=== PATIENT | female | born 1980 | race Caucasian/White ===

== ENCOUNTER 2017-09-20 13:13 | Emergency (ER) | payer MEDICAID ==
[~2017-09-20 13:13] MED LIST: ACHD5005 PO; AZIT-21 PO; CYCL5TAB PO; DOXY100C2 PO; DULO30CA PO; DULO60CA6 PO; ESTR0.755; ESTR0.755 PO; Estrogen; HYDR-34 PO; HYDR-3583 PO; HYDR1TAB PO; IBP200T; LEVO500T69 PO; METH4TAB PO; NCT21TD TD; OXYC10TA8 PO; OXYC40TA49 PO; PERCOCET; TRAM50TA2; TRM50T
[2017-09-21] MEDS ORDERED: ONDA8TAB9 PO (15:12)
[2017-09-21] MEDS ORDERED: CLON0.1T PO (15:12)
[2017-09-21] MEDS ORDERED: POTA10TA PO (15:14)
== END 2017-09-20 14:05 | disposition left against medical advice (07) ==
LOC: EDUNIT# 13:13 → ER 13:15
DX: R11.2 Nausea with vomiting, unspecified (principal); R19.7 Diarrhea, unspecified; R50.9 Fever, unspecified

== ENCOUNTER 2017-09-21 12:48 | Emergency (ER) | payer MEDICAID ==
[~2017-09-21] VITALS: Ht 170.2 cm; Wt 44.5 kg
[2017-09-21] MEDS ORDERED: NS IV 1000 ML 1,000 ML IV ONE (13:13)
[2017-09-21] MEDS ORDERED: ONDANSETRON 4 MG/2 ML (SDV) Z0FRAN IVP ONE (13:15)
--- NOTE | 2017-09-21 13:24 | ED Abdominal Pain ---
General Chief Complaint: -Female Stated Complaint: THROWING UP,DIARRHEA, NOT URINATED IN 2 DAYS History of Present Illness Date Seen by Provider: Sep 21, 2017 Time Seen by Provider: 13:15 Initial Comments 37 year old female reports history of nerve pain in her chest from previous spontaneous pneumothoraces and chest tubes. She has been treated with oxycodone and OxyContin dating back to 2003. She stopped OxyContin in July 2017 and stopped taking the oxycodone 3 days ago. Per [employer] she was getting 180 Oxycodone 10mg every month, no Oxycontin since early Jul 2017. She reports that over the last few months she has been gradually increasing the amount of oxycodone that she is taking, beyond her prescribed dose. She is followed by Dr. Barrientos in [place], [place]. She has not seen her primary care physician for cessation of the medication. She has an appointment 09/27/17 for this. She reports withdrawal symptoms, abdominal pain, and nausea and vomiting. She denies seizure activity or tremors. She has been drinking 7-Up to stay hydrated but denies any urinary output for 2 days. She presented to the emergency department yesterday but left prior to evaluation because of the wait time. Timing/Duration: 3-4 Days Location: Generalized Abdomen Radiation: No Radiation Associated Symptoms: Nausea/Vomiting Allergies and Home Medications Allergies Coded Allergies: ibuprofen (Verified Allergy, Mild, RASH FROM LIQUIGELS CAN TAKE PLAIN ADVIL, 12/28/08) pregabalin (Unverified Allergy, Unknown, 09/21/17) tramadol (Unverified Allergy, Unknown, 09/21/17) Home Medications Clonidine HCl 0.1 Mg Tablet, 0.1 MG PO Q8H PRN for ANXIETY, #8 Ref 0 Prescribed by: MARYSE LAWSON on 09/21/17 1512 Estropipate 0.75 Mg Tablet, #30 (Reported) Methylprednisolone 4 Mg/Dose-Pack Tab.ds.pk, 0 PO UD, #1 Prescribed by: JC SINCLAIR on 04/03/14 1628 Ondansetron 8 Mg Tab.rapdis, 4 MG PO Q8H, #16 Ref 0 Prescribed by: MARYSE LAWSON on 09/21/17 1512 Oxycodone Hcl 40 Mg Tab.sr.12h, 40 MG PO BID, (Reported) Oxycodone Hcl 10 Mg Tab, 10 MG PO QID PRN, (Reported) breakthrough pain Potassium Chloride 10 Meq Tablet.er, 10 MEQ PO DAILY, #5 Ref 0 Prescribed by: MARYSE LAWSON on 09/21/17 1514 Review of Systems Constitutional: no symptoms reported, see HPI Gastrointestinal: See HPI, Abdominal Pain, Nausea, Poor Appetite, Vomiting Psychiatric/Neurological: See HPI, Anxiety All Other Systems Reviewed Negative Unless Noted: Yes Past U[place]uvub-Bblbcv-[place]as[place] Hx Patient Social History Recent Foreign Travel: No Contact w/Someone Who Travel: No Immunizations Up To Date Date of Pneumonia Vaccine: May 05, 2011 Date of Influenza Vaccine: Oct 06, 2011 Respiratory Respiratory Disorders: Emphysema Reproductive System Hx Reproductive Disorders: Yes Sexually 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 Disease: 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 Psychosocial Behavioral Health Disorders: Sleep Difficulties Reviewed Nursing Assessment Reviewed/Agree w Nursing PMH: Yes Physical Exam Vital Signs VS - Last 72 Hours, by Label 09/21/17 09/21/17 13:35 15:50 Temp 98.3 98.3 Pulse 92 92 Resp 20 20 B/P (MAP) 114/93 (100) 114/93 (100) Pulse Ox 100 100 O2 Delivery Room Air Capillary Refill : General Appearance: WD/WN, no apparent distress HEENT: PERRL/EOMI, normal ENT inspection, TMs normal, pharynx normal Neck: non-tender, full range of motion, supple, normal inspection Respiratory: chest non-tender, lungs clear, normal breath sounds Cardiovascular: normal peripheral pulses, regular rate, rhythm Gastrointestinal: normal bowel sounds, soft, No distended, No guarding, No rebound, tenderness (generalized) Neurologic/Psychiatric: no motor/sensory deficits, alert, normal mood/affect, oriented x 3 Skin: normal color, warm/dry Progress/Results/Core Measures Results/Orders Lab Results Laboratory Tests Test 09/21/17 13:15 09/21/17 14:20 Range/Units White Blood Count 11.0 4.3-11.0 10^3/uL Red Blood Count 5.42 4.35-5.85 10^6/uL Hemoglobin 16.4 H 11.5-16.0 G/DL Hematocrit 47 35-52 % Mean Corpuscular Volume 87 80-99 FL Mean Corpuscular Hemoglobin 30 25-34 PG Mean Corpuscular Hemoglobin Concent 35 32-36 G/DL Red Cell Distribution Width 13.3 10.0-14.5 % Platelet Count 298 130-400 10^3/uL Mean Platelet Volume 10.7 H 7.4-10.4 FL Neutrophils (%) (Auto) 74 42-75 % Lymphocytes (%) (Auto) 18 12-44 % Monocytes (%) (Auto) 8 0-12 % Eosinophils (%) (Auto) 1 0-10 % Basophils (%) (Auto) 0 0-10 % Neutrophils # (Auto) 8.1 H 1.8-7.8 X 10^3 Lymphocytes # (Auto) 2.0 1.0-4.0 X 10^3 Monocytes # (Auto) 0.8 0.0-1.0 X 10^3 Eosinophils # (Auto) 0.1 0.0-0.3 10^3/uL Basophils # (Auto) 0.0 0.0-0.1 10^3/uL Sodium Level 141 135-145 MMOL/L Potassium Level 2.9 L 3.6-5.0 MMOL/L Chloride Level 99 98-107 MMOL/L Carbon Dioxide Level 24 21-32 MMOL/L Anion Gap 18 H 5-14 MMOL/L Blood Urea Nitrogen 13 7-18 MG/DL Creatinine 0.83 0.60-1.30 MG/DL Estimat Glomerular Filtration Rate > 60 BUN/Creatinine Ratio 16 Glucose Level 112 H 70-105 MG/DL Calcium Level 10.5 H 8.5-10.1 MG/DL Total Bilirubin 0.4 0.1-1.0 MG/DL Aspartate Amino Transf (AST/SGOT) 19 5-34 U/L Alanine Aminotransferase (ALT/SGPT) 12 0-55 U/L Alkaline Phosphatase 91 40-136 U/L Total Protein 8.8 H 6.4-8.2 GM/DL Albumin 5.0 H 3.2-4.5 GM/DL Amylase Level 98 25-125 U/L Lipase 62 8-78 U/L Salicylates Level < 5.0 L 5.0-20.0 MG/DL Serum Alcohol 12 H <10 MG/DL Urine Color YELLOW Urine Clarity SLIGHTLY CLOUDY Urine pH 6 5-9 Urine Specific [place] 1.015 L 1.016-1.022 Urine Protein 3+ H NEGATIVE Urine Glucose (UA) NEGATIVE NEGATIVE Urine Ketones NEGATIVE NEGATIVE Urine Nitrite NEGATIVE NEGATIVE Urine Bilirubin NEGATIVE NEGATIVE Urine Urobilinogen NORMAL NORMAL MG/DL Urine Leukocyte Esterase 1+ H NEGATIVE Urine RBC (Auto) 1+ H NEGATIVE Urine RBC 5-10 H /HPF Urine WBC 2-5 /HPF Urine Squamous Epithelial Cells 5-10 /HPF Urine Crystals PRESENT H /LPF Urine Uric Acid Crystals FEW H /LPF Urine Bacteria FEW H /HPF Urine Casts NONE /LPF Urine Mucus MODERATE H /LPF Urine Culture Indicated YES Urine Opiates Screen NEGATIVE NEGATIVE Urine Oxycodone Screen NEGATIVE NEGATIVE Urine Methadone Screen NEGATIVE NEGATIVE Urine Propoxyphene Screen NEGATIVE NEGATIVE Urine Barbiturates Screen NEGATIVE NEGATIVE Ur Tricyclic Antidepressants Screen NEGATIVE NEGATIVE Urine Phencyclidine Screen NEGATIVE NEGATIVE Urine Amphetamines Screen NEGATIVE NEGATIVE Urine Methamphetamines Screen NEGATIVE NEGATIVE Urine Benzodiazepines Screen NEGATIVE NEGATIVE Urine Cocaine Screen NEGATIVE NEGATIVE Urine Cannabinoids Screen NEGATIVE NEGATIVE My Orders Orders - RENNY,MARYSE FORENSIC IDENTIFICATION SPECIALIST Alcohol (09/21/17 13:13) Amylase (09/21/17 13:13) Cbc With Automated Diff (09/21/17 13:13) Comprehensive Metabolic Panel (09/21/17 13:13) Drug Screen Stat (Urine) (09/21/17 13:13) Lipase (09/21/17 13:13) Salicylate (09/21/17 13:13) Ua Culture If Indicated (09/21/17 13:13) Saline Lock/Iv-Start (09/21/17 13:13) Ns Iv 1000 Ml (Sodium Chloride 0.9%) (09/21/17 13:13) Ondansetron Injection (Zofran Injectio (09/21/17 13:15) Clonidine Tablet (Catapres Tablet) (09/21/17 13:30) D5 1/2 Ns W/Kcl 40 Meq/L (Dextrose 5%/0. (09/21/17 14:30) Urine Culture (09/21/17 14:20) Medications Given in ED Current Medications Medications Dose Ordered Sig/Ronal Route Start Time Stop Time Status Last Admin Dose Admin Clonidine HCl 0.1 mg ONCE ONCE PO 09/21/17 13:30 09/21/17 13:31 DC 09/21/17 13:32 0.1 MG Ondansetron HCl 4 mg ONCE ONCE IVP 09/21/17 13:15 09/21/17 13:16 DC 09/21/17 13:25 4 MG Sodium Chloride 1,000 ml @ 0 mls/hr Q0M ONCE IV 09/21/17 13:13 09/21/17 13:15 DC 09/21/17 13:24 0 MLS/HR Vital Signs/I&O Vital Sign - Last 12Hours 09/21/17 09/21/17 13:35 15:50 Temp 98.3 98.3 Pulse 92 92 Resp 20 20 B/P (MAP) 114/93 (100) 114/93 (100) Pulse Ox 100 100 O2 Delivery Room Air Progress Note : Time: 13:15 Progress Note Initial evaluation completed, recommended Zofran 4 mg IV for nausea, normal saline 1 L IV, labs and will reevaluate. 1400 patient reports improvement in her nausea since getting the Zofran, no vomiting. 1430 urine obtained. All other labs essentially normal with the exception of potassium 2.9. Will give D5 1.2 NS with 40 mEq of potassium IV 1 liter[address] Anna, she will have the patient advocate contact the patient on Saturday for referral for addiction services. 1545 discharge planning discussed with the patient, return precautions and home treatments reviewed in detail. All questions answered. Departure Impression Impression: Primary Impression: Opioid withdrawal Additional Impression: Nausea & vomiting Qualified Codes: R11.2 - Nausea with vomiting, unspecified Disposition: HOME, SELF-CARE Condition: Improved Departure-Patient Inst. Decision time for Depature: 15:15 Referrals: MONALISA BARRIENTOS MD (PCP/Family) Primary Care Physician Patient Instructions: Drug Withdrawal (DC), Polysubstance Abuse (DC) Add. Discharge Instructions: Increase fluid intake, may use Gatorade or Pedialyte, 1 cup every 2 hours while awake. Clear liquid diet, if nauseated. [place] diet as tolerated and progress to regular diet if nausea and vomiting improve. Take clonidine only as prescribed, no more frequently. Use Zofran as needed for nausea and vomiting as prescribed. Take Potassium for 5 days, as directed. Have labs rechecked at [facility]. Increase high Potassium foods in diet. Follow up with [facility] on Saturday for addiction treatment services. Return to emergency department for tremors, anxiety, suicidal thoughts, fever greater than 101, chest pain, seizure activity, or new problems. All discharge instructions reviewed with patient and/or family. Voiced understanding. Scripts Potassium Chloride (K-Tab ER) 10 Meq Tablet.er 10 MEQ PO DAILY, #5 TAB 0 Refills Prov: MARYSE LAWSON 09/21/17 Clonidine HCl (Clonidine HCl) 0.1 Mg Tablet 0.1 MG PO Q8H Y for ANXIETY, #8 TAB 0 Refills Prov: MARYSE LAWSON 09/21/17 Ondansetron (Zofran Odt) 8 Mg Tab.rapdis 4 MG PO Q8H, #16 TAB 0 Refills Prov: MARYSE LAWSON 09/21/17 Copy Copies To 1: JESS ANNA MD Copies To 2: GENOVEVA MOHR MD, AMY ARNP Sep 21, 2017 13:24
[2017-09-21 13:26] LABS: BASOPHILS % (AUTO) 0 % (0-10); EOSINOPHILS # (AUTO) 0.1 10^3/uL (0.0-0.3); EOSINOPHILS % (AUTO) 1 % (0-10); HEMATOCRIT 47 % (35-52); HEMOGLOBIN 16.4 G/DL (11.5-16.0); LYMPHOCYTES % (AUTO) 18 % (12-44); MEAN CORPUSCULAR HEMOGLOBIN 30 PG (25-34); MEAN CORPUSCULAR HGB CONC 35 G/DL (32-36); MEAN CORPUSCULAR VOLUME 87 FL (80-99); MEAN PLATELET VOLUME 10.7 FL (7.4-10.4); MONOCYTES # (AUTO) 0.8 X 10^3 (0.0-1.0); MONOCYTES % (AUTO) 8 % (0-12); NEUTROPHILS # (AUTO) 8.1 X 10^3 (1.8-7.8); NEUTROPHILS % (AUTO) 74 % (42-75); PLATELET COUNT 298 10^3/uL (130-400); RED BLOOD COUNT 5.42 10^6/uL (4.35-5.85); RED CELL DISTRIBUTION WIDTH 13.3 % (10.0-14.5)
[2017-09-21] MEDS ORDERED: cloNIDine 0.1 MG (CATAPRES) TAB PO ONE (13:30)
[2017-09-21 13:47] LABS: ALANINE AMINOTRANSFERASE 12 U/L (0-55); ALKALINE PHOSPHATASE 91 U/L (40-136); AMYLASE 98 U/L (25-125); BILIRUBIN,TOTAL 0.4 MG/DL (0.1-1.0); BUN/CREATININE RATIO 16; CALCIUM 10.5 MG/DL (8.5-10.1); CARBON DIOXIDE 24 MMOL/L (21-32); CHLORIDE 99 MMOL/L (98-107); CREATININE SERUM 0.83 MG/DL (0.60-1.30); GFR ESTIMATED > 60; GLUCOSE 112 MG/DL (70-105); LIPASE 62 U/L (8-78); POTASSIUM 2.9 MMOL/L (3.6-5.0); SALICYLATE < 5.0 MG/DL (5.0-20.0); SODIUM 141 MMOL/L (135-145); TOTAL PROTEIN 8.8 GM/DL (6.4-8.2)
[2017-09-21 14:29] LABS: BILIRUBIN,URINE NEGATIVE (NEGATIVE); CLARITY,URINE SLIGHTLY CLOUDY; COLOR,URINE YELLOW; GLUCOSE, URINE (UA) NEGATIVE (NEGATIVE); KETONES,URINE NEGATIVE (NEGATIVE); LEUKOCYTE ESTERASE ,URINE 1+ (NEGATIVE); NITRITE,URINE NEGATIVE (NEGATIVE); PH,URINE 6 (5-9); PROTEIN,URINE 3+ (NEGATIVE); UROBILINOGEN,URINE NORMAL (NORMAL)
[2017-09-21] MEDS ORDERED: D5 1/2 NS W/KCL 40 MEQ/L 1,000 ML IV SCH (14:30)
[2017-09-21 14:39] LABS: BACTERIA,URINE FEW /HPF; URIC ACID CRYSTALS,URINE FEW /LPF
[2017-09-21 14:41] LABS: AMPHETAMINE SCREEN, URINE NEGATIVE (NEGATIVE); BARBITURATE SCREEN URINE NEGATIVE (NEGATIVE); BENZODIAZEPINES SCREEN URINE NEGATIVE (NEGATIVE); CANNABINOID SCREEN, URINE NEGATIVE (NEGATIVE); COCAINE SCREEN URINE NEGATIVE (NEGATIVE); METHADONE STAT NEGATIVE (NEGATIVE); METHAMPHETAMINE SCREEN URINE S NEGATIVE (NEGATIVE); OPIATE SCREEN URINE NEGATIVE (NEGATIVE); OXYCODONE STAT NEGATIVE (NEGATIVE); PROPOXYPHENE STAT NEGATIVE (NEGATIVE); TRICYCLIC ANTIDEPRESSANTS SCRE NEGATIVE (NEGATIVE)
[2017-09-21] MEDS ORDERED: ONDA8TAB9 PO (15:12)
[2017-09-21] MEDS ORDERED: CLON0.1T PO (15:12)
[2017-09-21] MEDS ORDERED: POTA10TA PO (15:14)
[2017-09-21 15:50] VITALS: BP 114/93
== END 2017-09-21 15:57 | disposition home or self-care (01) ==
LOC: EDUNIT# 12:48 → ER 12:49
DX: R11.2 Nausea with vomiting, unspecified (principal); F11.20 Opioid dependence, uncomplicated; G47.9 Sleep disorder, unspecified; Z88.6 Allergy status to analgesic agent; Z88.1 Allergy status to other antibiotic agents
CPT/HCPCS: 36415; 80053; 80306; 80320; 80329; 81000; 82150; 83690; 85025; 87088

== ENCOUNTER 2018-08-23 10:44 | Emergency (ER) | payer MEDICAID | END 2018-08-23 12:27 | disposition home or self-care (01) | LOC: ER 10:44 ==

== ENCOUNTER 2018-09-30 18:41 | Emergency (ER) | payer MEDICAID ==
[~2018-09-30] VITALS: Ht 172.7 cm; Wt 50.8 kg
[~2018-09-30 18:41] MED LIST changes: +CLON0.1T PO; +ONDA8TAB9 PO; +POTA10TA PO
[2018-09-30] MEDS ORDERED: RT-ALBUTEROL SULF 2.5 MG/3 ML PRE-MIX VIAL ONE (18:52)
--- NOTE | 2018-09-30 19:01 | ED Cough/URI ---
General Stated Complaint: CONGESTED,FEVER,ACHY Source: patient Exam Limitations: no limitations History of Present Illness Date Seen by Provider: Sep 30, 2018 Allergies and Home Medications Allergies Coded Allergies: ibuprofen (Verified Allergy, Mild, RASH FROM LIQUIGELS CAN TAKE PLAIN ADVIL, 12/28/08) pregabalin (Unverified Allergy, Unknown, 09/21/17) tramadol (Unverified Allergy, Unknown, 09/21/17) Home Medications Clonidine HCl 0.1 Mg Tablet, 0.1 MG PO Q8H PRN for ANXIETY Prescribed by: MARYSE LAWSON on 09/21/17 151 Methylprednisolone 4 Mg/Dose-Pack Tab.ds.pk, 0 PO UD Prescribed by: JC SINCLAIR on 04/03/14 1628 Ondansetron 8 Mg Tab.rapdis, 4 MG PO Q8H Prescribed by: MARYSE LAWSON on 09/21/17 151 Oxycodone Hcl 40 Mg Tab.sr.12h, 40 MG PO BID, (Reported) Oxycodone Hcl 10 Mg Tab, 10 MG PO QID PRN, (Reported) breakthrough pain Potassium Chloride 10 Meq Tablet.er, 10 MEQ PO DAILY Prescribed by: MARYSE LAWSON on 09/21/17 151 Promethazine/Dextromethorphan 473 Ml Syrup, 5 ML PO Q4H Prescribed by: RACHEL SOSA on 09/30/181924 Past Egvbpmm-Joenob-Njjdpt Hx Patient Social History Type Used: Cigarettes 2nd Hand Smoke Exposure: Yes Recent Foreign Travel: No Contact w/Someone Who Travel: No Recent Hopitalizations: Yes (Pneumo x 3) Immunizations Up To Date Date of Pneumonia Vaccine: May 05, 2011 Date of Influenza Vaccine: Oct 06, 2011 Past Medical History Surgeries: Yes (Appy 1996, Hyster 12/26/08 LUNG) Respiratory: Yes ( 10 PNUEMOTHORAX'S, "lungs collapse") Emphysema Cardiac: No Neurological: No 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 0oz. 49.147599ir; BMI Method:Stated Progress/Results/Core Measures Suspected Sepsis SIRS Temperature: Pulse: Respiratory Rate: Blood Pressure / Mean: Results/Orders Micro Results Microbiology 09/30/18 Influenza Types A,B Antigen (PAPA) - Final, Complete My Orders Orders - RACHEL SOSA Influenza A And B Antigens (09/30/18 18:43) Albuterol Pre-Mix Nebs (Rt) (Proventil (09/30/18 18:52) Promethazine/ Codeine Syrup (Phenergan W (09/30/18 19:30) Vital Signs/I&O 09/30/18 19:24 Temp 98.9 Pulse 88 Resp 20 B/P (MAP) 114/74 (87) Pulse Ox 99 O2 Delivery Room Air Capillary Refill : Departure Impression Primary Impression: Influenza-like symptoms Disposition: HOME, SELF-CARE Condition: Stable/Unchanged Departure-Patient Inst. Decision time for Depature: 19:23 Referrals: [facility] (PCP/Family) Primary Care Physician Patient Instructions: Viral Upper Respiratory Infection, Adult (DC) Add. Discharge Instructions: Take medications as directed. Tylenol and ibuprofen as directed by the bottle for pain and fever reliefFollow-up with your primary care provider within 1 week for recheck. Return back to the emergency room for worsening symptoms or concerns as needed. Scripts Promethazine/Dextromethorphan (Promethazine-Dm Syrup) 473 Ml Syrup 5 ML PO Q4H, #60 ML Prov: RACHEL SOSA 09/30/18 Work/School Note: Work Release Form Date Seen in the Emergency Department: Sep 30, 2018 Return to Work: Sep 30, 2018 Restrictions: Return-No Fever (24hrs) RACHEL SOSA Sep 30, 2018 19:01
[2018-09-30] MEDS ORDERED: D-ME473S38 PO (19:25)
[2018-09-30] MEDS ORDERED: PROMETHAZINE/ CODEINE SYRUP 5 ML UDC PO ONE (19:30)
[2018-09-30 19:53] VITALS: BP 114/74
== END 2018-09-30 19:50 | disposition home or self-care (01) ==
LOC: EDUNIT# 18:41 → ER 18:43
DX: R09.81 Nasal congestion (principal); R50.9 Fever, unspecified; R52 Pain, unspecified; J43.9 Emphysema, unspecified; Z88.6 Allergy status to analgesic agent; Z88.8 Allergy status to other drugs, medicaments and biological substances; Z79.52 Long term (current) use of systemic steroids; Z77.22 Contact with and (suspected) exposure to environmental tobacco smoke (acute) (chronic); Z90.49 Acquired absence of other specified parts of digestive tract; Z90.710 Acquired absence of both cervix and uterus
CPT/HCPCS: 87804

== ENCOUNTER 2019-05-10 09:09 | Emergency (ER) | payer SELFPAY ==
[~2019-05-10] VITALS: Ht 170.1 cm; Wt 45.4 kg
[~2019-05-10 09:09] MED LIST changes: +D-ME473S38 PO
--- NOTE | 2019-05-10 09:27 | ED GU-Female ---
General Stated Complaint: BLOOD IN URINE Source: patient, spouse Exam Limitations: no limitations History of Present Illness Date Seen by Provider: May 10, 2019 Time Seen by Provider: 09:15 Initial Comments The patient presents to ER by private conveyance with chief complaint of thinking she has a UTI because for the past day or so she's had dysuria and this morning started having bloody urine. She has some occasional right flank pain. She used ibuprofen this morning which has worked well for her pain. No fever but she's had some chills. No history of kidney stones. She's not having any nausea or significant pain this time. She's had a appendectomy in the past. She takes Suboxone and hormone replacement therapy under Dr. Melissa Mcintyre's care. Allergies and Home Medications Allergies Coded Allergies: ibuprofen (Verified Allergy, Mild, RASH FROM LIQUIGELS CAN TAKE PLAIN ADVIL, 12/28/08) pregabalin (Unverified Allergy, Unknown, 09/21/17) tramadol (Unverified Allergy, Unknown, 09/21/17) Home Medications Clonidine HCl 0.1 Mg Tablet, 0.1 MG PO Q8H PRN for ANXIETY Prescribed by: MARYSE LAWSON on 09/21/17 1512 Methylprednisolone 4 Mg/Dose-Pack Tab.ds.pk, 0 PO UD Prescribed by: JC SINCLAIR on 04/03/14 1628 Ondansetron 8 Mg Tab.rapdis, 4 MG PO Q8H Prescribed by: MARYSE LAWSON on 09/21/17 1512 Oxycodone Hcl 40 Mg Tab.sr.12h, 40 MG PO BID, (Reported) Oxycodone Hcl 10 Mg Tab, 10 MG PO QID PRN, (Reported) breakthrough pain Potassium Chloride 10 Meq Tablet.er, 10 MEQ PO DAILY Prescribed by: MARYSE LAWSON on 09/21/17 1514 Promethazine/Dextromethorphan 473 Ml Syrup, 5 ML PO Q4H Prescribed by: RACHEL SOSA on 09/30/181924 Patient Home Medication List Home Medication List Reviewed: Yes Review of Systems Review of Systems Constitutional: chills; No fever EENTM: No ear discharge, No ear pain Respiratory: No cough, No short of breath Cardiovascular: No chest pain, No edema Gastrointestinal: No abdominal pain, No constipation Past Gepcovw-Ibryfw-Eczveg Hx Patient Social History Alcohol Use: Denies Use Recreational Drug Use: No Smoking Status: Current Everyday Smoker Type Used: Cigarettes 2nd Hand Smoke Exposure: Yes Recent Foreign Travel: No Contact w/Someone Who Travel: No Recent Hopitalizations: Yes (Pneumo x 3) Immunizations Up To Date Date of Pneumonia Vaccine: May 05, 2011 Date of Influenza Vaccine: Oct 06, 2011 Past Medical History Surgeries: Yes (Appy 1996, Hyster 12/26/08 LUNG) Respiratory: Yes ( 10 PNUEMOTHORAX'S, "lungs collapse") Emphysema Cardiac: No Neurological: No 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 0oz. 50.140496fq; BMI Method:Estimated General Appearance: WD/WN, no apparent distress HEENT: PERRL/EOMI, normal ENT inspection Neck: non-tender, full range of motion Cardiovascular: normal peripheral pulses, regular rate, rhythm Respiratory: no respiratory distress, no accessory muscle use Gastrointestinal: normal bowel sounds, non tender Back: normal inspection, no CVA tenderness Progress/Results/Core Measures Suspected Sepsis SIRS Temperature: Pulse: Respiratory Rate: Blood Pressure / Mean: Results/Orders Lab Results Laboratory Tests Test 05/10/19 09:24 Range/Units Urine Color YELLOW Urine Clarity SLIGHTLY CLOUDY Urine pH 6 5-9 Urine Specific [place] 1.005 L 1.016-1.022 Urine Protein 2+ H NEGATIVE Urine Glucose (UA) NEGATIVE NEGATIVE Urine Ketones NEGATIVE NEGATIVE Urine Nitrite NEGATIVE NEGATIVE Urine Bilirubin NEGATIVE NEGATIVE Urine Urobilinogen NORMAL NORMAL MG/DL Urine Leukocyte Esterase 3+ H NEGATIVE Urine RBC (Auto) 5+ H NEGATIVE Urine RBC 0 /HPF Urine WBC TNTC H /HPF Urine Crystals NONE /LPF Urine Bacteria LARGE H /HPF Urine Casts NONE /LPF Urine Mucus SMALL H /LPF Urine Culture Indicated YES Urine Test NEGATIVE NEGATIVE My Orders Orders - URIEL AVILA Ua Culture If Indicated (05/10/19 09:10) Hcg,Qualitative Urine (05/10/19 09:27) Urine Culture (05/10/19 09:24) Vital Signs/I&O 05/10/19 09:18 Temp 36.8 Pulse 81 Resp 16 B/P (MAP) 119/95 (103) Pulse Ox 65 O2 Delivery Room Air Capillary Refill : Progress Note : Time: 09:26 Progress Note Urinalysis and . Departure Impression Primary Impression: Urinary tract infection Qualified Codes: N30.00 - Acute cystitis without hematuria Disposition: HOME, SELF-CARE Condition: Stable Departure-Patient Inst. Decision time for Depature: 09:53 Referrals: [facility] (PCP/Family) Primary Care Physician Patient Instructions: Urinary Tract Infection, Adult (DC) Add. Discharge Instructions: Drink lots of fluids. Keflex one capsule twice a day for the next week. Tylenol 1000 mg every 8 hours as needed for pain. Ibuprofen 800 mg every 8 hours as needed for pain. Scripts Cephalexin (Keflex) 500 Mg Capsule 500 MG PO BID for 7 Days, #14 CAP 0 Refills Prov: URIEL AVILA 05/10/19 Work/School Note: Work Release Form Date Seen in the Emergency Department: May 10, 2019 Return to Work: May 11, 2019 Restrictions: No Restrictions URIEL AVILA May 10, 2019 09:27
[2019-05-10 09:30] LABS: BILIRUBIN,URINE NEGATIVE (NEGATIVE); CLARITY,URINE SLIGHTLY CLOUDY; COLOR,URINE YELLOW; GLUCOSE, URINE (UA) NEGATIVE (NEGATIVE); KETONES,URINE NEGATIVE (NEGATIVE); LEUKOCYTE ESTERASE ,URINE 3+ (NEGATIVE); NITRITE,URINE NEGATIVE (NEGATIVE); PH,URINE 6 (5-9); PROTEIN,URINE 2+ (NEGATIVE); UROBILINOGEN,URINE NORMAL (NORMAL)
[2019-05-10 09:46] LABS: BACTERIA,URINE LARGE /HPF; RBC,URINE 0 /HPF; WBC,URINE TNTC /HPF
[2019-05-10] MEDS ORDERED: CEPH-507 PO (09:55)
[2019-05-10 10:18] VITALS: BP 119/95
== END 2019-05-10 10:17 | disposition home or self-care (01) ==
LOC: EDUNIT# 09:09 → ER 09:10
DX: N39.0 Urinary tract infection, site not specified (principal); J43.9 Emphysema, unspecified; F17.210 Nicotine dependence, cigarettes, uncomplicated; Z88.6 Allergy status to analgesic agent; Z88.5 Allergy status to narcotic agent; Z88.8 Allergy status to other drugs, medicaments and biological substances; Z90.49 Acquired absence of other specified parts of digestive tract; Z90.710 Acquired absence of both cervix and uterus; Z79.52 Long term (current) use of systemic steroids
CPT/HCPCS: 81000; 84703; 87088; 99282

== ENCOUNTER 2020-01-30 21:03 | Emergency (ER) | payer SELFPAY ==
[~2020-01-30] VITALS: Ht 170 cm; Wt 44.0 kg
[~2020-01-30 21:03] MED LIST changes: +CEPH-507 PO; +D-ME473S11 PO; -D-ME473S38 PO
--- NOTE | 2020-01-30 21:24 | ED Respiratory ---
General Chief Complaint: - Urinary Stated Complaint: SOA,COUGH History of Present Illness Date Seen by Provider: Jan 30, 2020 Time Seen by Provider: 21:05 Initial Comments 39-year-old female presents for shortness of air and cough. She denies any fever. She's had possible indirect exposure to COVID-19 positive patients through her . History of Pneumothorax and lung surgery. Has been taking Muccinex. She works at [employer]. Timing/Duration: yesterday Severity: mild Prior Episodes/Possible Cause: occasional episodes Associated Symptoms: cough (green sputum), fever/chills, muscle aches; No nasal congestion, No nasal drainage; shortness of breath; No sore throat, No wheezing Allergies and Home Medications Allergies Coded Allergies: ibuprofen (Verified Allergy, Mild, RASH FROM LIQUIGELS CAN TAKE PLAIN ADVIL, 12/28/08) pregabalin (Unverified Allergy, Unknown, 09/21/17) tramadol (Unverified Allergy, Unknown, 09/21/17) Home Medications Azithromycin 250 Mg Tablet, 250 MG PO DAILY Prescribed by: MARYSE LAWSON on 01/30/20 2230 Cephalexin 500 Mg Capsule, 500 MG PO BID Prescribed by: URIEL AVILA on 05/10/19 0955 Clonidine HCl 0.1 Mg Tablet, 0.1 MG PO Q8H PRN for ANXIETY Prescribed by: MARYSE LAWSON on 09/21/17 1512 Methylprednisolone 4 Mg/Dose-Pack Tab.ds.pk, 0 PO UD Prescribed by: JC SINCLAIR on 04/03/14 1628 Ondansetron 8 Mg Tab.rapdis, 4 MG PO Q8H Prescribed by: MARYSE LAWSON on 09/21/17 1512 Oxycodone Hcl 40 Mg Tab.sr.12h, 40 MG PO BID, (Reported) Oxycodone Hcl 10 Mg Tab, 10 MG PO QID PRN, (Reported) breakthrough pain Potassium Chloride 10 Meq Tablet.er, 10 MEQ PO DAILY Prescribed by: MARYSE LAWSON on 09/21/17 1514 Promethazine/Dextromethorphan 473 Ml Syrup, 5 ML PO Q4H Prescribed by: RACHEL SOSA on 09/30/18 1925 Patient Home Medication List Home Medication List Reviewed: Yes Review of Systems Review of Systems Constitutional: see HPI, malaise, weakness Respiratory: see HPI, phlegm, short of breath Cardiovascular: no symptoms reported, see HPI; No chest pain Gastrointestinal: no symptoms reported, see HPI Genitourinary: no symptoms reported, see HPI : No (Hysterectomy) All Other Systems Reviewed Negative Unless Noted: Yes Past Otbnicv-Zbkknj-Kmwjis Hx Past Med/Social Hx: Reviewed Nursing Past Med/Soc Hx Patient Social History Alcohol Use: Denies Use Recreational Drug Use: No Type Used: Cigarettes 2nd Hand Smoke Exposure: Yes Recent Hopitalizations: Yes (Pneumo x 3) Physical Abuse: No Sexual Abuse: No Mistreated: No Fear: No Immunizations Up To Date Date of Pneumonia Vaccine: May 05, 2011 Date of Influenza Vaccine: Oct 06, 2011 Seasonal Allergies Seasonal Allergies: No Past Medical History Surgeries: Yes (Appy 1996, Hyster 12/26/08 LUNG) Respiratory: Yes ( 10 PNUEMOTHORAX'S, "lungs collapse") Emphysema Cardiac: No Neurological: No 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 0oz. 50.415367kc; 15.00 BMI Method:Estimated General Appearance: WD/WN, no apparent distress HEENT: PERRL/EOMI, normal ENT inspection, TMs normal, pharynx normal Neck: non-tender, full range of motion, supple, normal inspection Respiratory: chest non-tender, no respiratory distress, no accessory muscle use, decreased breath sounds, rhonchi (Bilateral lower lobes) Cardiovascular: normal peripheral pulses, regular rate, rhythm, no edema, no JVD, no murmur Gastrointestinal: normal bowel sounds, non tender, soft Extremities: normal range of motion, non-tender, normal inspection, no calf tenderness, normal capillary refill Neurologic/Psychiatric: no motor/sensory deficits, alert, normal mood/affect, oriented x 3 Skin: normal color, warm/dry; No rash Progress/Results/Core Measures Suspected Sepsis SIRS Temperature: Pulse: Respiratory Rate: Laboratory Tests 01/30/20 21:30: White Blood Count 6.1 Blood Pressure / Mean: Laboratory Tests 01/30/20 21:30: Creatinine 0.85, Platelet Count 177, Total Bilirubin 0.3 Results/Orders Lab Results Laboratory Tests Test 01/30/20 21:30 Range/Units White Blood Count 6.1 4.3-11.0 10^3/uL Red Blood Count 4.62 4.35-5.85 10^6/uL Hemoglobin 14.2 11.5-16.0 G/DL Hematocrit 42 35-52 % Mean Corpuscular Volume 90 80-99 FL Mean Corpuscular Hemoglobin 31 25-34 PG Mean Corpuscular Hemoglobin Concent 34 32-36 G/DL Red Cell Distribution Width 11.7 10.0-14.5 % Platelet Count 177 130-400 10^3/uL Mean Platelet Volume 10.8 H 7.4-10.4 FL Neutrophils (%) (Auto) 39 L 42-75 % Lymphocytes (%) (Auto) 49 H 12-44 % Monocytes (%) (Auto) 8 0-12 % Eosinophils (%) (Auto) 4 0-10 % Basophils (%) (Auto) 0 0-10 % Neutrophils # (Auto) 2.4 1.8-7.8 X 10^3 Lymphocytes # (Auto) 3.0 1.0-4.0 X 10^3 Monocytes # (Auto) 0.5 0.0-1.0 X 10^3 Eosinophils # (Auto) 0.2 0.0-0.3 10^3/uL Basophils # (Auto) 0.0 0.0-0.1 10^3/uL Erythrocyte Sedimentation Rate 7 0-20 MM/HR D-Dimer 0.39 0.00-0.49 UG/ML Sodium Level 140 135-145 MMOL/L Potassium Level 3.6 3.6-5.0 MMOL/L Chloride Level 105 98-107 MMOL/L Carbon Dioxide Level 24 21-32 MMOL/L Anion Gap 11 5-14 MMOL/L Blood Urea Nitrogen 6 L 7-18 MG/DL Creatinine 0.85 0.60-1.30 MG/DL Estimat Glomerular Filtration Rate > 60 BUN/Creatinine Ratio 7 Glucose Level 94 70-105 MG/DL Calcium Level 9.2 8.5-10.1 MG/DL Corrected Calcium 8.9 8.5-10.1 MG/DL Total Bilirubin 0.3 0.1-1.0 MG/DL Aspartate Amino Transf (AST/SGOT) 15 5-34 U/L Alanine Aminotransferase (ALT/SGPT) 9 0-55 U/L Alkaline Phosphatase 55 40-136 U/L Lactate Dehydrogenase 145 125-220 U/L C-Reactive Protein High Sensitivity 0.03 0.00-0.50 MG/DL Total Protein 7.2 6.4-8.2 GM/DL Albumin 4.4 3.2-4.5 GM/DL Procalcitonin 0.01 <0.10 NG/ML My Orders Orders - MARYSE LAWSON Cbc With Automated Diff (01/30/20 21:24) Comprehensive Metabolic Panel (01/30/20 21:24) Fibrin Degradation Products (01/30/20 21:24) Procalcitonin (Pct) (01/30/20 21:24) Hs C Reactive Protein (01/30/20 21:24) Erythrocyte Sedimentation Rate (01/30/20 21:24) LDH (01/30/20 21:24) Chest 1 View, Ap/Pa Only (01/30/20 21:24) Coronavirus Sars-Cov-2 So 2018 (01/30/20 21:24) Rx-Albuterol Inhaler (Rx-Proair) (01/30/20 22:25) Azithromycin Tablet (Zithromax Tablet) (01/30/20 22:30) Vital Signs/I&O 01/30/20 01/30/20 01/30/20 21:17 21:17 21:17 Temp 37.0 Pulse 74 Resp 16 B/P (MAP) 108/86 (93) Pulse Ox 96 96 O2 Delivery Room Air Room Air Room Air Capillary Refill : Diagnostic Imaging Diagonstic Imaging: Xray Plain Films/CT/US/NM/MRI: chest Comments NAME: SHILOH DOUGLAS Haydee [facility] REC#: [id number] PT STATUS: REG ER : 1980 PHYSICIAN: MARYSE LAWSON ADMIT DATE: 01/30/20/ER Signed Date of Exam:01/30/20 CHEST 1 VIEW, AP/PA ONLY INDICATION: Shortness of air. TECHNIQUE: Single view chest 9:54 PM. CORRELATION STUDY: . FINDINGS: The heart size, mediastinal configuration and pulmonary vascularity are within normal limits. Rather marked abnormal changes about the lung parenchyma, particularly at the lung apices, is again demonstrated. This includes areas of asymmetric fibrosis and pleural thickening. Apparent suture line bilateral lung apex. Density in the lateral right mid lung field, stable. Unchanged blunting of right costophrenic angle. May be slightly increased infiltrate-like density in the right mid lung field laterally. IMPRESSION: Marked chronic changes about the lung apices with biapical pleural fibrosis and pleural thickening along with the prior surgical change. Question of minimal new area of infiltrate in the right mid lung field. Follow-up imaging if clinically warranted. Dictated by: Dictated on workstation # [id number] Dict: 01/30/202203 Trans: 01/30/202209 PJE [id number] Interpreted by: MADELINE PISANO DO Electronically signed by: MADELINE PISANO DO 01/30/202209 Departure Impression Primary Impression: Bronchitis Additional Impression: COVID PUI Disposition: 01 HOME, SELF-CARE Condition: Improved Departure-Patient Inst. Decision time for Depature: 22:15 Referrals: [facility] (PCP/Family) Primary Care Physician Patient Instructions: Acute Bronchitis, Adult (DC), Coronavirus Disease 2019 (COVID-19) (DC) Add. Discharge Instructions: Increase water intake, 16 ounces every 2 hours while awake. Use inhaler 2-4 puffs every 4 hours as needed for shortness of breath or cough. Take Zithromax as prescribed. Take Mucinex one tablet twice daily. Follow-up at [facility] if symptoms are not improving or worsen. Rest and stay on isolation until your COVID tests are called to you. All close personal contacts. Also isolated home until the results are returned. You may alternate between Tylenol 600 mg and ibuprofen 600 mg every 4 hours for pain or fever. Return to the emergency department for fever greater than 101 not relieved by Tylenol or ibuprofen, difficulty breathing, or new urgent health concerns. All discharge instructions reviewed with patient and/or family. Voiced understanding. Scripts Azithromycin (Azithromycin) 250 Mg Tablet 250 MG PO DAILY, #4 TAB 0 Refills Prov: MARYSE LAWSON 01/30/20 Work/School Note: Work Release Form Date Seen in the Emergency Department: Jan 30, 2020 Other Restrictions Listed Below: Must quarantine at home, until COVID testing is complete and notified Copy Copies To 1: NATE THOMPSON AMY ARNP Jan 30, 2020 21:24
[2020-01-30 21:42] LABS: BASOPHILS % (AUTO) 0 % (0-10); EOSINOPHILS # (AUTO) 0.2 10^3/uL (0.0-0.3); EOSINOPHILS % (AUTO) 4 % (0-10); HEMATOCRIT 42 % (35-52); HEMOGLOBIN 14.2 G/DL (11.5-16.0); LYMPHOCYTES % (AUTO) 49 % (12-44); MEAN CORPUSCULAR HEMOGLOBIN 31 PG (25-34); MEAN CORPUSCULAR HGB CONC 34 G/DL (32-36); MEAN CORPUSCULAR VOLUME 90 FL (80-99); MEAN PLATELET VOLUME 10.8 FL (7.4-10.4); MONOCYTES # (AUTO) 0.5 X 10^3 (0.0-1.0); MONOCYTES % (AUTO) 8 % (0-12); NEUTROPHILS # (AUTO) 2.4 X 10^3 (1.8-7.8); NEUTROPHILS % (AUTO) 39 % (42-75); PLATELET COUNT 177 10^3/uL (130-400); RED CELL DISTRIBUTION WIDTH 11.7 % (10.0-14.5); WHITE BLOOD COUNT 6.1 10^3/uL (4.3-11.0)
[2020-01-30 21:52] LABS: ALBUMIN 4.4 GM/DL (3.2-4.5); CHLORIDE 105 MMOL/L (98-107); POTASSIUM 3.6 MMOL/L (3.6-5.0); SODIUM 140 MMOL/L (135-145)
[2020-01-30 21:53] LABS: CALCIUM 9.2 MG/DL (8.5-10.1)
[2020-01-30 21:55] LABS: GLUCOSE 94 MG/DL (70-105); TOTAL PROTEIN 7.2 GM/DL (6.4-8.2)
[2020-01-30 21:56] LABS: BILIRUBIN,TOTAL 0.3 MG/DL (0.1-1.0); CARBON DIOXIDE 24 MMOL/L (21-32)
[2020-01-30 21:58] LABS: ALKALINE PHOSPHATASE 55 U/L (40-136); CREATININE SERUM 0.85 MG/DL (0.60-1.30); GFR ESTIMATED > 60
[2020-01-30 21:59] LABS: BUN/CREATININE RATIO 7
[2020-01-30 22:00] LABS: ERYTHROCYTE SEDIMENTATION RATE 7 MM/HR (0-20)
[2020-01-30 22:01] LABS: ALANINE AMINOTRANSFERASE 9 U/L (0-55)
--- NOTE | 2020-01-30 22:09 | Diagnostic Imaging Report ---
INDICATION: Shortness of air. TECHNIQUE: Single view chest 9:54 PM. CORRELATION STUDY: . FINDINGS: The heart size, mediastinal configuration and pulmonary vascularity are within normal limits. Rather marked abnormal changes about the lung parenchyma, particularly at the lung apices, is again demonstrated. This includes areas of asymmetric fibrosis and pleural thickening. Apparent suture line bilateral lung apex. Density in the lateral right mid lung field, stable. Unchanged blunting of right costophrenic angle. May be slightly increased infiltrate-like density in the right mid lung field laterally. IMPRESSION: Marked chronic changes about the lung apices with biapical pleural fibrosis and pleural thickening along with the prior surgical change. Question of minimal new area of infiltrate in the right mid lung field. Follow-up imaging if clinically warranted. Dictated by: Dictated on workstation # [id number]
[2020-01-30] MEDS ORDERED: RX-ALBUTEROL INHALER (PROAIR) 8.5 GM IH STA (22:25)
[2020-01-30] MEDS ORDERED: AZIT250T12 PO (22:30)
[2020-01-30] MEDS ORDERED: AZITHROMYCIN 250 MG TAB (ZITHROMAX) PO ONE (22:30)
[2020-01-30 22:38] VITALS: BP 119/84
== END 2020-01-30 22:39 | disposition home or self-care (01) ==
LOC: EDUNIT# 21:03 → ER 21:04
DX: J44.9 Chronic obstructive pulmonary disease, unspecified (principal); Z20.828 Contact with and (suspected) exposure to other viral communicable diseases; Z88.6 Allergy status to analgesic agent; Z88.5 Allergy status to narcotic agent; Z88.8 Allergy status to other drugs, medicaments and biological substances; Z77.22 Contact with and (suspected) exposure to environmental tobacco smoke (acute) (chronic)
CPT/HCPCS: 71045; 80053; 83615; 84145; 85025; 85379; 85652; 86141; 94640; 99284; U0002; 36415; 87635

== ENCOUNTER 2020-09-30 23:36 | Emergency (ER) | payer BC ==
[~2020-09-30] VITALS: Ht 170 cm; Wt 40.4 kg
[~2020-09-30 23:36] MED LIST changes: +AZIT250T12 PO; +CLN.1T PO; -CLON0.1T PO
[2020-10-01] MEDS ORDERED: AMOX500C2 PO (01:20)
[2020-10-01] MEDS ORDERED: SUCR1TAB36 PO (01:20)
[2020-10-01] MEDS ORDERED: PANT40TA2 PO (01:20)
--- NOTE | 2020-10-01 01:20 | ED EENT ---
History of Present Illness General Chief Complaint: Oral/Throat Problems Stated Complaint: THROAT & BACK PAIN Nursing Triage Note: INTERMITTANT SORE THROAT PAIN SINCE 142909/30/20 Source: patient History of Present Illness Date Seen by Provider: Oct 01, 2020 Time Seen by Provider: 00:15 Initial Comments PT ARRIVES VIA POV FROM HOME C/O SORE THROAT SINCE 1429 TODAY STATES "SOMETIMES I CAN FEEL IT ALL THE WAY DOWN AND IN MY BACK" NO ACTUAL DIFFICULTY SWALLOWING AND HAS BEEN EATING AND DRINKING NORMALLY. NO FEVER/SWEATS/CHILLS NO URI SYMPTOMS OR COUGH NO LOSS OF TASTE OR SMELL NO SHORTNESS OF BREATH NO GI SYMPTOMS HAS NOT TAKEN ANYTHING FOR SYMPTOMS NO KNOWN SICK CONTACTS OR KNOWN EXPOSURE TO COVID-19. PCP: DR. Kevan MOHR/DIA Allergies and Home Medications Allergies Coded Allergies: ibuprofen (Verified Allergy, Mild, RASH FROM LIQUIGELS CAN TAKE PLAIN ADVIL, 12/28/08) pregabalin (Unverified Allergy, Unknown, 09/21/17) tramadol (Unverified Allergy, Unknown, 09/21/17) Home Medications Amoxicillin 500 Mg Capsule, 500 MG PO TID Prescribed by: JC SINCLAIR on 10/01/20119 Pantoprazole Sodium 40 Mg Tablet.dr, 40 MG PO DAILY Prescribed by: JC SINCLAIR on 10/01/20119 Sucralfate 1 Gm Tablet, 1 GM PO QID Prescribed by: JC SINCLAIR on 10/01/20119 Patient Home Medication List Home Medication List Reviewed: Yes Review of Systems Review of Systems Constitutional: no symptoms reported Eyes: No Symptoms Reported Ears: No Symptoms Reported Nose: no symptoms reported Mouth: no symptoms reported Throat: see HPI Respiratory: no symptoms reported Cardiovascular: see HPI Gastrointestinal: no symptoms reported; No abdominal pain, No nausea, No vomiting Musculoskeletal: see HPI, back pain Skin: no symptoms reported; No rash Neurological: No Symptoms Reported; Denies Headache Hematologic/Lymphatic: No Symptoms Reported Immunological/Allergic: no symptoms reported Past Awjibtt-Ggvysp-Kkznhp Hx Past Med/Social Hx: Reviewed and Corrections made Patient Social History Alcohol Use: Denies Use Drug of 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 Smoking Status: Current Everyday Smoker (1-2 PPD) Type Used: Cigarettes 2nd Hand Smoke Exposure: Yes Recent Infectious Disease Expo: No Recent Hopitalizations: No Substance type: Opiates/Opioids, Misuse of prescript meds Immunizations Up To Date Tetanus Booster (TDap): Unknown Date of Pneumonia Vaccine: May 05, 2011 Date of Influenza Vaccine: Oct 06, 2011 Seasonal Allergies Seasonal Allergies: No Past Medical History Surgeries: Yes (MULTIPLE BILATERAL CHEST TUBES/PLEURODESIS) Appendectomy, Hysterectomy Respiratory: Yes (MULTIPLE SPONTANEOUS PNEUMOTHORACES/MULT BILAT CHEST TUBES/PLEURODESIS) Emphysema Cardiac: No Neurological: No : No 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 Sexually Transmitted Disease: No Genitourinary: No Gastrointestinal: No Musculoskeletal: No Endocrine: No HEENT: Yes (POOR DENTITION) Cancer: No Psychosocial: Yes Sleep Difficulties Integumentary: No Blood Disorders: No Family Medical History PAST SURGICAL HISTORY: -MULTIPLE BILATERAL CHEST TUBES AND BILATERAL PLEURODESIS FOR MULIPTLE EPISODES OF SPONTANEOUS PNEUMOTHORAX--> 10 TIMES, PER PT -HYSTERECTOMY 12/2008 -APPENDECTOMY 1996 Physical Exam Vital Signs Vital Signs - First Documented 10/01/20 00:10 Temp 36.0 Pulse 70 Resp 18 B/P (MAP) 118/63 (81) Pulse Ox 97 O2 Delivery Room Air Height, Weight, BMI Height: 5'8.00" Weight: 112lbs. 0oz. 50.100904ii; 13.00 BMI Method:Estimated General Appearance: no apparent distress, thin, other (DOES NOT APPEAR TO BE ILL OR IN ANY DISCOMFORT OR DISTRESS) Eyes: bilateral eye normal inspection, bilateral eye PERRL, bilateral eye EOMI Ears: bilateral ear auricle normal, bilateral ear canal normal, bilateral ear TM normal Nose: normal inspection Mouth/Throat: No dental tenderness, No excessive drooling, No mandibular swell ing, No maxillary swelling; other (PHARYNGEAL ERYTHEMA. NO EXUDATE OR TONSILLAR OR POSTERIOR PHARYNGEAL OR UVULA SWELLING. EXTREMELY POOR DENTITON WITH MOST TEETH MISSING AND REMAINING TEETH DECAYED DOWN TO GUMS. ) Neck: non-tender, full range of motion, supple, normal inspection; No lymphadenopathy (R), No lymphadenopathy (L) Cardiovascular: regular rate, rhythm, no murmur Respiratory: normal breath sounds Gastrointestinal: non tender, soft Neurologic/Psychiatric: alert, normal mood/affect Skin: normal color, warm/dry Progress/Results/Core Measures Results/Orders Lab Results Laboratory Tests Test 10/01/20 00:18 Range/Units Coronavirus 2019 (MYK[facility]) Negative Negative Group A Streptococcus Screen NEGATIVE NEGATIVE My Orders Orders - JC SINCLAIR DO Rapid Strep A Screen (10/01/20 00:28) Covid 19 Inhouse Test (10/01/20 00:28) Lidocaine 2% Viscous 15 Ml (Xylocaine Vi (10/01/20 01:30) Antacid Suspension (Mylanta Suspension (10/01/20 01:30) Vital Signs/I&O Blood Pressure Mean: 81 Departure Impression Primary Impression: Throat pain Additional Impression: POSSIBLE GERD Disposition: HOME, SELF-CARE Condition: Stable Departure-Patient Inst. Referrals: GENOVEVA MOHR MD (PCP/Family) Primary Care Physician Patient Instructions: Acid Reflux and GERD in Adults (DC), Sore Throat, Adult (DC) Add. Discharge Instructions: CLEAR LIQUIDS--WATER, BROTH, JELLO, GATORAD BRATS DIET--BANANAS, RICE, APPLESAUCE, TOAST, SALTINES TYLENOL AND MOTRIN NEEDED FOR PAIN FOLLOW UP WITH [facility] IN 3-4 DAYS IF NO BETTER All discharge instructions reviewed with patient and/or family. Voiced understanding. Scripts Pantoprazole Sodium (Protonix) 40 Mg Tablet.dr 40 MG PO DAILY, #15 TAB Prov: JC SINCLAIR DO 10/01/20 Sucralfate (Carafate) 1 Gm Tablet 1 GM PO QID, #60 TAB Prov: CJ SINCLAIR DO 10/01/20 Amoxicillin (Amoxicillin) 500 Mg Capsule 500 MG PO TID, #21 CAP 0 Refills Prov: JC SINCLAIR DO 10/01/20 JC SINCLAIR DO Oct 01, 2020 01:20
[2020-10-01] MEDS ORDERED: LIDOCAINE 2% VISCOUS 15 ML UDC PO ONE (01:30)
[2020-10-01] MEDS ORDERED: ANTACID SUSP 30 ML UDC (MYLANTA) PO ONE (01:30)
[2020-10-01 01:38] VITALS: BP 116/64
== END 2020-10-01 01:39 | disposition home or self-care (01) ==
LOC: EDUNIT# 23:36 → ER 23:39
DX: R07.0 Pain in throat (principal); F17.210 Nicotine dependence, cigarettes, uncomplicated; Z88.5 Allergy status to narcotic agent; Z88.8 Allergy status to other drugs, medicaments and biological substances; Z20.822 Contact with and (suspected) exposure to COVID-19
CPT/HCPCS: 87430; 99284; U0002; 87635

== ENCOUNTER 2021-01-13 17:10 | Observation (INO) | payer SELFPAY ==
[~2021-01-13] VITALS: Ht 170 cm; Wt 44.7 kg
[~2021-01-13 17:10] MED LIST changes: +AMOX500C2 PO; +PANT40TA2 PO; +SUCR1TAB36 PO
[2021-01-13] MEDS ORDERED: NS IV 1000 ML 1,000 ML IV SCH (17:15)
[2021-01-13] MEDS ORDERED: LACTATED RINGERS 1,000 ML IV ONE ×2 (17:15→17:17)
[2021-01-13] MEDS ORDERED: CEFEPIME INJECTION 1,000 MG in WATER (STERILE) FOR INJECTION 10 ML IV ONE (17:15)
[2021-01-13] MEDS ORDERED: VANCOMYCIN INJECTION 1,000 MG in NS (IVPB) 250 ML IV ONE (17:15)
[2021-01-13 17:27] LABS: BILIRUBIN,URINE NEGATIVE (NEGATIVE); CLARITY,URINE CLEAR; COLOR,URINE YELLOW; GLUCOSE, URINE (UA) NEGATIVE (NEGATIVE); KETONES,URINE NEGATIVE (NEGATIVE); LEUKOCYTE ESTERASE ,URINE NEGATIVE (NEGATIVE); NITRITE,URINE NEGATIVE (NEGATIVE); PROTEIN,URINE NEGATIVE (NEGATIVE)
[2021-01-13] MEDS ORDERED: diphenhydrAMINE 50 MG/ML INJ (BENADRYL) IVP ONE (17:30)
[2021-01-13] MEDS ORDERED: EPINEPHrine INJECTION 1 MG/ML AMP IM ONE (17:30)
[2021-01-13 17:36] LABS: BASOPHILS % (AUTO) 1 % (0-10); EOSINOPHILS # (AUTO) 0.1 10^3/uL (0.0-0.3); EOSINOPHILS % (AUTO) 2 % (0-10); HEMATOCRIT 41 % (35-52); HEMOGLOBIN 13.8 g/dL (11.5-16.0); LYMPHOCYTES # (AUTO) 4.9 10^3/uL (1.0-4.0); LYMPHOCYTES % (AUTO) 56 % (12-44); MEAN CORPUSCULAR HEMOGLOBIN 31 pg (25-34); MEAN CORPUSCULAR HGB CONC 34 g/dL (32-36); MEAN CORPUSCULAR VOLUME 93 fL (80-99); MEAN PLATELET VOLUME 11.1 fL (9.0-12.2); MONOCYTES # (AUTO) 0.6 10^3/uL (0.0-1.0); MONOCYTES % (AUTO) 6 % (0-12); NEUTROPHILS # (AUTO) 3.1 10^3/uL (1.8-7.8); NEUTROPHILS % (AUTO) 35 % (42-75); PLATELET COUNT 242 10^3/uL (130-400); WHITE BLOOD COUNT 8.7 10^3/uL (4.3-11.0)
--- NOTE | 2021-01-13 17:37 | ED General ---
General Stated Complaint: VOMITING/RASH/TOOK RX/UNRESPONSIVE Source of Information: Patient Exam Limitations: No Limitations History of Present Illness Date Seen by Provider: Jan 13, 2021 Time Seen by Provider: 17:07 Initial Comments Patient brought in on responsive to the ER by her significant other with chief complaint she took Keflex for some sinus pain that she had leftover from September. She was prescribed for dental pain then. She says for the past week she has been having some upper respiratory infection symptoms no chest pain cough shortness of air nausea vomiting diarrhea or fever. Within half an hour of taking it she started to feel very weak and tired so her significant other drove her to the ER and he said [facility] there she started to lose consciousness and was covered with an itchy rash that looked like hives. She does not have a known history of anaphylaxis or allergy to Keflex. Patient does give history she is been clean for the past 3 years on opiates. 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 She is still on Suboxone. She denies having taken any extra. She says she does not use other illicit drugs. Allergies and Home Medications Allergies Coded Allergies: ibuprofen (Verified Allergy, Mild, RASH FROM LIQUIGELS CAN TAKE PLAIN ADVIL, 12/28/08) pregabalin (Unverified Allergy, Unknown, 09/21/17) tramadol (Unverified Allergy, Unknown, 09/21/17) Home Medications Amoxicillin 500 Mg Capsule, 500 MG PO TID Prescribed by: JC SINCLAIR on 10/01/20119 Pantoprazole Sodium 40 Mg Tablet.dr, 40 MG PO DAILY Prescribed by: JC SINCLAIR on 10/01/20119 Sucralfate 1 Gm Tablet, 1 GM PO QID Prescribed by: JC SINCLAIR on 10/01/20119 Patient Home Medication List Home Medication List Reviewed: Yes Review of Systems Review of Systems Constitutional: chills; No fever; malaise EENTM: nose congestion (Bilateral sinus tenderness); No hearing loss, No ear pain Respiratory: No cough, No short of breath, No wheezing Cardiovascular: No chest pain, No edema Gastrointestinal: No abdominal pain, No nausea, No vomiting Genitourinary: No discharge, No dysuria Musculoskeletal: No back pain, No joint pain Psychiatric/Neurological: Denies Anxiety, Denies Depressed All Other Systems Reviewed Negative Unless Noted: Yes Past Vgycaxz-Lxtsvl-Nlcqmm Hx Patient Social History Alcohol Use: Denies Use Drug of Choice: History of OPIATE ABUSE--ON SUBOXONE Smoking Status: Current Everyday Smoker Type Used: Cigarettes 2nd Hand Smoke Exposure: Yes Recent Hopitalizations: No Immunizations Up To Date Tetanus Booster (TDap): Unknown Date of Pneumonia Vaccine: May 05, 2011 Date of Influenza Vaccine: Oct 06, 2011 Seasonal Allergies Seasonal Allergies: No Past Medical History Surgeries: Yes (MULTIPLE BILATERAL CHEST TUBES/PLEURODESIS) Appendectomy, Hysterectomy Respiratory: Yes (MULTIPLE SPONTANEOUS PNEUMOTHORACES/MULT BILAT CHEST TUBES/PLEURODESIS) Emphysema Cardiac: No Neurological: No 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 0oz. 50.753584cq; 13.00 BMI Method:Estimated General Appearance: Severe Distress, Thin Eyes: Bilateral Eye Normal Inspection, Bilateral Eye PERRL, Bilateral Eye EOMI HEENT: PERRL/EOMI, TMs Normal; No Moist Mucous Membranes; Other (Pale, white pallor around the mouth. No evidence of angioedema or retropharyngeal edema) Neck: Full Range of Motion, Normal Inspection Respiratory: Lungs Clear, Normal Breath Sounds, No Accessory Muscle Use, Respiratory Distress (Oxygen saturation in the low 90s) Cardiovascular: Regular Rate, Rhythm, Normal Peripheral Pulses Gastrointestinal: Normal Bowel Sounds, No Organomegaly Extremity: Normal Capillary Refill, Normal Inspection, No Pedal Edema Neurologic/Psychiatric: Other (Initial GCS 12) Skin: pallor, other (Pruritic wheals trunk and arms) Focused Exam Sepsis Stage: Ruled Out Reason for ruling out sepsis: No evidence of bacterial infection. Anaphylactic shock. Lactate Level 01/13/21 17:42: Lactic Acid Level 3.34*H 01/13/21 19:46: Lactic Acid Level Laboratory Tests Test 01/13/21 17:42 01/13/21 19:46 Lactic Acid Level 3.34 MMOL/L (0.50-2.00) *H Progress/Results/Core Measures Suspected Sepsis SIRS Temperature: Pulse: Respiratory Rate: Laboratory Tests 01/13/21 17:11: White Blood Count 8.7 Blood Pressure / Mean: 01/13/21 17:42: Lactic Acid Level 3.34*H 01/13/21 19:46: Laboratory Tests 01/13/21 17:11: Creatinine 0.94, Platelet Count 242, Total Bilirubin 0.4 01/13/21 17:42: INR Comment 1.2 Results/Orders Lab Results Laboratory Tests Test 01/13/21 17:11 01/13/21 17:15 01/13/21 17:16 01/13/21 17:20 Range/Units White Blood Count 8.7 4.3-11.0 10^3/uL Red Blood Count 4.44 3.80-5.11 10^6/uL Hemoglobin 13.8 11.5-16.0 g/dL Hematocrit 41 35-52 % Mean Corpuscular Volume 93 80-99 fL Mean Corpuscular Hemoglobin 31 25-34 pg Mean Corpuscular Hemoglobin Concent 34 32-36 g/dL Red Cell Distribution Width 11.5 10.0-14.5 % Platelet Count 242 130-400 10^3/uL Mean Platelet Volume 11.1 9.0-12.2 fL Immature Granulocyte % (Auto) 0 % Neutrophils (%) (Auto) 35 L 42-75 % Lymphocytes (%) (Auto) 56 H 12-44 % Monocytes (%) (Auto) 6 0-12 % Eosinophils (%) (Auto) 2 0-10 % Basophils (%) (Auto) 1 0-10 % Neutrophils # (Auto) 3.1 1.8-7.8 10^3/uL Lymphocytes # (Auto) 4.9 H 1.0-4.0 10^3/uL Monocytes # (Auto) 0.6 0.0-1.0 10^3/uL Eosinophils # (Auto) 0.1 0.0-0.3 10^3/uL Basophils # (Auto) 0.0 0.0-0.1 10^3/uL Immature Granulocyte # (Auto) 0.0 0.0-0.1 10^3/uL Sodium Level 140 135-145 MMOL/L Potassium Level 3.3 L 3.6-5.0 MMOL/L Chloride Level 104 98-107 MMOL/L Carbon Dioxide Level 21 21-32 MMOL/L Anion Gap 15 H 5-14 MMOL/L Blood Urea Nitrogen 11 7-18 MG/DL Creatinine 0.94 0.60-1.30 MG/DL Estimat Glomerular Filtration Rate > 60 BUN/Creatinine Ratio 12 Glucose Level 138 H 70-105 MG/DL Calcium Level 9.0 8.5-10.1 MG/DL Corrected Calcium 8.9 8.5-10.1 MG/DL Total Bilirubin 0.4 0.1-1.0 MG/DL Aspartate Amino Transf (AST/SGOT) 15 5-34 U/L Alanine Aminotransferase (ALT/SGPT) 14 0-55 U/L Alkaline Phosphatase 48 40-136 U/L Total Protein 6.6 6.4-8.2 GM/DL Albumin 4.1 3.2-4.5 GM/DL Glucometer 138 H 70-110 MG/DL Blood Gas Puncture Site LR Blood Gas Patient Temperature 37 Arterial Blood pH 7.37 7.37-7.43 Arterial Blood Partial Pressure CO2 41 35-45 MMHG Arterial Blood Partial Pressure O2 63 L 79-93 MMHG Arterial Blood HCO3 24 23-27 MMOL/L Arterial Blood Total CO2 24.7 21.0-31.0 MMOL/L Arterial Blood Oxygen Saturation 95 94-100 % Arterial Blood Base Excess -1.0 -2.5-2.5 MMOL/L Soham Test YES-POS Blood Gas Ventilator Setting NO Blood Gas Inspired Oxygen RA Urine Color YELLOW Urine Clarity CLEAR Urine pH 6.0 5-9 Urine Specific Elmer 1.020 1.016-1.022 Urine Protein NEGATIVE NEGATIVE Urine Glucose (UA) NEGATIVE NEGATIVE Urine Ketones NEGATIVE NEGATIVE Urine Nitrite NEGATIVE NEGATIVE Urine Bilirubin NEGATIVE NEGATIVE Urine Urobilinogen 0.2 < = 1.0 MG/DL Urine Leukocyte Esterase NEGATIVE NEGATIVE Urine RBC (Auto) NEGATIVE NEGATIVE Urine RBC 0-2 /HPF Urine WBC 0-2 /HPF Urine Crystals PRESENT H /LPF Urine Amorphous Sediment RARE KRISTIN URATES H /LPF Urine Bacteria NEGATIVE /HPF Urine Casts PRESENT /LPF Urine Hyaline Casts 0-2 H /LPF Urine Mucus NEGATIVE /LPF Urine Culture Indicated CULTURE PENDING Test 6/11/21 17:42 01/13/21 19:46 Range/Units Prothrombin Time 15.4 H 12.2-14.7 SEC INR Comment 1.2 0.8-1.4 Activated Partial Thromboplast Time 30 24-35 SEC Lactic Acid Level 3.34 *H 0.50-2.00 MMOL/L My Orders Orders - URIEL AVILA Cbc With Automated Diff (01/13/21 17:15) Comprehensive Metabolic Panel (01/13/21 17:15) Blood Culture (01/13/21 17:15) Sputum Culture (01/13/21 17:15) Urinalysis (01/13/21 17:15) Urine Culture (01/13/21 17:15) Protime With Inr (01/13/21 17:15) Partial Thromboplastin Time (01/13/21 17:15) Chest 1 View, Ap/Pa Only (01/13/21 17:15) Ed Iv/Invasive Line Start (01/13/21 17:15) Ed Iv/Invasive Line Start (01/13/21 17:15) Ekg Tracing (01/13/21 17:15) Vital Signs Adult Sepsis Patie Q15M (01/13/21 17:15) O2 (01/13/21 17:15) Remove Rings In Anticipation O (01/13/21 17:15) Lactic Acid Analyzer (01/13/21 17:15) Lactated Ringers (Lr 1000 Ml Iv Solution (01/13/21 17:15) Ns Iv 1000 Ml (Sodium Chloride 0.9%) (01/13/21 17:15) Cefepime Injection (Maxipime Injection) (01/13/21 17:15) Vancomycin Injection (Vancomycin Injecti (01/13/21 17:15) Ed Iv/Invasive Line Start (01/13/21 17:15) Covid 19 Inhouse Test (01/13/21 17:15) Influenza A And B By Pcr (01/13/21 17:15) Epinephrine 1 Mg Injection (Adrenalin I (01/13/21 17:30) Diphenhydramine Injection (Benadryl Inje (01/13/21 17:30) Lactated Ringers (Lr 1000 Ml Iv Solution (01/13/21 18:00) Arterial Blood Gas (01/13/21 18:08) Medications Given in ED Current Medications Medications Dose Ordered Sig/Ronal Route Start Time Stop Time Status Last Admin Dose Admin Cefepime HCl 1000 mg/Sterile Water 10 ml @ 200 mls/hr ONCE ONCE IV 01/13/21 17:15 01/13/21 17:21 DC 01/13/21 17:47 200 MLS/HR Diphenhydramine HCl 25 mg ONCE ONCE IVP 01/13/21 17:30 01/13/21 17:31 DC 01/13/21 17:54 25 MG Epinephrine HCl 0.3 mg ONCE ONCE IM 01/13/21 17:30 01/13/21 17:31 DC 01/13/21 17:54 0.3 MG Vancomycin HCl 1000 mg/Sodium Chloride 250 ml @ 250 mls/hr ONCE ONCE IV 01/13/21 17:15 01/13/21 18:14 DC 01/13/21 17:48 250 MLS/HR Vital Signs/I&O Capillary Refill : Progress Note #1: Time: 17:37 Progress Note Patient presents with significantly low blood pressure 60/40 and not mentating correctly. We put her in Trendelenburg which improved her mentation and blood pressure as well as initiated 2 large-bore IVs and gave her 2 L of IV fluids. Very shortly her blood pressure improved now is 98/60 and her mentation is intact, GCS 15, alert and oriented x4. She is able to give history. Piece together that she probably had an anaphylactic reaction but because of her story of being sick this week we do not want to rule out the possibility of sepsis just yet. We will complete a appropriate work-up and give her appropriate broad-spectrum antibiotics. She has clear lung sounds good oxygenation and is no longer tachycardic. Epinephrine IM and IV Benadryl were ordered. Progress Note #2: Time: 19:31 Progress Note Patient is feeling better resting, still very pale. Blood pressure is stabilized around 98/60. Were keeping fluids going 150 an hour and discussed a stay in the ICU overnight and she agrees with this plan. ECG Initial ECG Impression Date: Jan 13, 2021 Initial ECG Impression Time: 17:35 Initial ECG Rate: 83 Initial ECG Rhythm: Normal Sinus Initial ECG Intervals: QT (488) Initial ECG Impression: Normal Comment Normal sinus rhythm with no clinically relevant ST elevation or depression. There is some tremor artifact Diagnostic Imaging Diagonstic Imaging: Xray Plain Films/CT/US/NM/MRI: chest Comments [facility]. [place], [place] NAME: SHILOH DOUGLAS [facility] REC#: [id number] PT STATUS: REG ER : 1980 PHYSICIAN: URIEL AVILA MD ADMIT DATE: 01/13/21/ER Signed Date of Exam:01/13/21 CHEST 1 VIEW, AP/PA ONLY INDICATION: Sepsis. COMPARISON STUDY: Chest from January 29 of last year. FINDINGS: Lungs remain hyperinflated with chronic interstitial disease since thickening of the lung apices and blunting of the right lateral recess. Heart size and vascularity are normal. IMPRESSION: Stable chronic interstitial lung disease and fibrosis. Dictated by: Dictated on workstation # [id number] Dict: 01/13/211816 Trans: 01/13/211835 [facility] [id number] Interpreted by: ZACARIAS VENTURA MD Electronically signed by: ZACARIAS VENTURA MD 01/13/211835 Reviewed: Reviewed by Me Departure Communication (Admissions) Time/Spoke to Admitting Phy: 19:30 Discussed the case with Dr. Castellanos and she agrees to admit the patient to the ICU with precautions against anaphylaxis. Impression Primary Impression: Anaphylactic shock as adv eff correct medicin substanc proper administ Qualified Codes: T88.6XXA - Anaphylactic reaction due to adverse effect of correct drug or medicament properly administered, initial encounter Disposition: ADMITTED INPATIENT Condition: Stable Admissions Decision to Admit Reason: Admit from ER (General) Decision to Admit/Date: Jan 13, 2021 Time/Decision to Admit Time: 19:56 Departure-Patient Inst. Referrals: GENOVEVA MOHR MD (PCP/Family) Primary Care Physician URIEL AVILA Jan 13, 2021 17:36
[2021-01-13 17:47] LABS: ALBUMIN 4.1 GM/DL (3.2-4.5)
[2021-01-13 17:48] LABS: CHLORIDE 104 MMOL/L (98-107); POTASSIUM 3.3 MMOL/L (3.6-5.0); SODIUM 140 MMOL/L (135-145)
[2021-01-13 17:50] LABS: GLUCOSE 138 MG/DL (70-105); TOTAL PROTEIN 6.6 GM/DL (6.4-8.2)
[2021-01-13 17:51] LABS: CARBON DIOXIDE 21 MMOL/L (21-32)
[2021-01-13 17:52] LABS: AMORPHOUS SEDIMENT,UR RARE AMOR URATES /LPF; BACTERIA,URINE NEGATIVE /HPF; HYALINE CASTS, URINE 0-2 /LPF; RBC,URINE 0-2 /HPF; WBC,URINE 0-2 /HPF
[2021-01-13 17:52] LABS: BILIRUBIN,TOTAL 0.4 MG/DL (0.1-1.0)
[2021-01-13 17:53] LABS: ALKALINE PHOSPHATASE 48 U/L (40-136)
[2021-01-13 17:54] LABS: CREATININE SERUM 0.94 MG/DL (0.60-1.30); GFR ESTIMATED > 60
[2021-01-13 17:55] LABS: BUN/CREATININE RATIO 12
[2021-01-13 17:57] LABS: ALANINE AMINOTRANSFERASE 14 U/L (0-55)
[2021-01-13] MEDS ORDERED: LACTATED RINGERS 1,000 ML IV SCH (18:00)
[2021-01-13 18:11] LABS: INR 1.2 (0.8-1.4); PROTHROMBIN TIME PATIENT 15.4 SEC (12.2-14.7)
[2021-01-13 18:19] LABS: ABG OXYGEN SATURATION 95 % (94-100); ABG PCO2 41 MMHG (35-45); ABG PH 7.37 (7.37-7.43); ABG PO2 63 MMHG (79-93); ABG TCO2 24.7 MMOL/L (21.0-31.0); ALLENS TEST YES-POS; INSPIRED O2 RA; PATIENT TEMP 37; VENTILATOR NO
--- NOTE | 2021-01-13 18:19 | Diagnostic Imaging Report ---
INDICATION: Sepsis. COMPARISON STUDY: Chest from January 29 of last year. FINDINGS: Lungs remain hyperinflated with chronic interstitial disease since thickening of the lung apices and blunting of the right lateral recess. Heart size and vascularity are normal. IMPRESSION: Stable chronic interstitial lung disease and fibrosis. Dictated by: Dictated on workstation # [id number]
[2021-01-13] MEDS ORDERED: ONDANSETRON 4 MG/2 ML (SDV) Z0FRAN IV PRN (22:00)
[2021-01-13] MEDS ORDERED: ACETAMINOPHEN 325 MG TABLET PO PRN (22:00)
[2021-01-13] MEDS: LACTATED RINGERS 1,000 ML IV SCH ×2 (22:04→23:51)
[2021-01-13] MEDS ORDERED: EPINEPHrine INJECTION 1 MG/ML AMP IM PRN (22:15)
[2021-01-13] MEDS ORDERED: LORATADINE (CLARITIN) 10 MG TAB PO SCH (22:15)
[2021-01-13] MEDS ORDERED: diphenhydrAMINE 50 MG/ML INJ (BENADRYL) IV PRN (22:15)
[2021-01-14 03:25] LABS: BASOPHILS % (AUTO) 1 % (0-10); EOSINOPHILS # (AUTO) 0.2 10^3/uL (0.0-0.3); EOSINOPHILS % (AUTO) 3 % (0-10); HEMATOCRIT 34 % (35-52); HEMOGLOBIN 11.6 g/dL (11.5-16.0); LYMPHOCYTES # (AUTO) 1.7 10^3/uL (1.0-4.0); LYMPHOCYTES % (AUTO) 23 % (12-44); MEAN CORPUSCULAR HEMOGLOBIN 31 pg (25-34); MEAN CORPUSCULAR HGB CONC 34 g/dL (32-36); MEAN CORPUSCULAR VOLUME 92 fL (80-99); MEAN PLATELET VOLUME 11.5 fL (9.0-12.2); MONOCYTES # (AUTO) 0.5 10^3/uL (0.0-1.0); MONOCYTES % (AUTO) 7 % (0-12); NEUTROPHILS % (AUTO) 67 % (42-75); PLATELET COUNT 130 10^3/uL (130-400); WHITE BLOOD COUNT 7.4 10^3/uL (4.3-11.0)
[2021-01-14 03:40] LABS: CHLORIDE 110 MMOL/L (98-107); SODIUM 141 MMOL/L (135-145)
[2021-01-14 03:41] LABS: CALCIUM 8.2 MG/DL (8.5-10.1)
[2021-01-14 03:42] LABS: GLUCOSE 97 MG/DL (70-105)
[2021-01-14 03:43] LABS: CARBON DIOXIDE 22 MMOL/L (21-32)
[2021-01-14 03:46] LABS: CREATININE SERUM 0.69 MG/DL (0.60-1.30); GFR ESTIMATED > 60; PHOSPHORUS 3.6 MG/DL (2.3-4.7)
[2021-01-14 03:47] LABS: BUN/CREATININE RATIO 12
[2021-01-14 03:48] LABS: MAGNESIUM 1.6 MG/DL (1.6-2.4)
[2021-01-14] MEDS: LACTATED RINGERS 1,000 ML IV SCH (05:27)
[2021-01-14] MEDS ORDERED: POTASSIUM CL 10MEQ/50ML IVPB 50 ML IV SCH ×2 (06:00)
[2021-01-14] MEDS ORDERED: KCL 20 MEQ TAB (K-DUR) PO SCH ×2 (06:00)
[2021-01-14] MEDS ORDERED: MAGNESIUM 1 GM/100 ML IVPB 100 ML IV SCH ×2 (06:00)
--- NOTE | 2021-01-14 06:32 | History & Physical-Hospitalist ---
History of Present Illness Date Seen 01/14/21 Attending Physician Ellyn Castellanos DO PCP Melissa Mcintyre MD Referring Physician Date of Admission Jan 13, 2021 at 19:40 Home Medications & Allergies Home Medications Reviewed patient Home Medication Reconciliation performed by pharmacy medication reconciliations seed laboratory technician and/or nursing. Patients Allergies have been reviewed. Allergies Allergies Coded Allergies ibuprofen (Verified Allergy, Mild, RASH FROM LIQUIGELS CAN TAKE PLAIN ADVIL, 12/28/08) pregabalin (Unverified Allergy, Unknown, 09/21/17) tramadol (Unverified Allergy, Unknown, 09/21/17) Past Jkvuwtt-Bauldb-Dpjzbh Hx Patient Social History Tobacco Use?: Yes Tobacco type used: Cigarettes Smoking Status: Current Everyday Smoker Immunizations Up To Date Date of Influenza Vaccine: Oct 06, 2011 Date of Pneumonia Vaccine: May 05, 2011 Seasonal Allergies Seasonal Allergies: No Current Status Advance Directives: No Communicates: Verbally Primary Language: Maltese Preferred Spoken Language: Maltese Is interpretation needed?: No Past Medical History Surgeries: Appendectomy, Hysterectomy 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 0oz. 50.778679za; 15.46 BMI Method:Estimated Results Results/Procedures Labs Laboratory Tests 01/13/21 17:11 01/14/21 03:00 Patient resulted labs reviewed. ELLYN CASTELLANOS DO Jan 14, 2021 06:32
--- NOTE | 2021-01-14 08:54 | Pulmonary Progress Note ---
Standard Progress Note Progress Notes Date Seen by Provider: Jan 14, 2021 Time Seen by Provider: 08:30 EICU progress note 40 yo presented with what appears to be an allergy to keflex. Apparently patient took keflex for some sinus infxn for URI symptoms. States within 30m became weak and tired and had hives. In ed given approperiate therapy for acute allergic reaction. In ED LA elevated and hypotensive. Concern for sepsis in ED and admitted to ICU. Epi and benedryl given in ed. Patient also received cefepime in ed. CXR FINDINGS: Lungs remain hyperinflated with chronic interstitial disease since thickening of the lung apices and blunting of the right lateral recess. Heart size and vascularity are normal. IMPRESSION: Stable chronic interstitial lung disease and fibrosis. Video Assessement done. This am patient is awake alert. Vitals stable. see EMAR for exact values. see EMAR for lab results. of note LA is now cleared. ABG 7.37/41/63 on RA exam deffered to PCP 1. Acute Allergic reaction to Cephlasporin ABX would avoid giving this patient cefepime will DC cefepime continue epi prn, claritin, benedryl prn as needed 2. ILD by hx will need pulm followup outpatient am labs diet per CCM , over video and looking at labs, patient appears stable to transfer out of ICU. will defer to PCP. patient wants to go home per nurse dc IVF danial craft ct 20 Critical Care: Critically Ill Patient Time spent with patient (mins): 20 Focused Exam Lactate Level 01/13/21 17:42: Lactic Acid Level 3.34*H 01/13/21 19:46: Lactic Acid Level 3.00*H 01/13/21 21:47: Lactic Acid Level 1.22 EDWARD RODRIGUEZ DO Jan 14, 2021 08:54
--- NOTE | 2021-01-14 12:31 | Short Stay Summary-Hospitalist ---
History of Present Illness HPI/Chief Complaint Chief complaint: Anaphylaxis due to Keflex History of present illness: This is a 40-year-old white female with history of chronic pain syndrome who presented to the ER with anaphylactic shock due to taking Keflex antibiotic. Patient had some antibiotics left over that she had not taken after she had a dental abscess but she felt more tooth pain so she took 1 Keflex pill and 40 minutes later she began feeling like her face was swelling and her tongue was swelling. Patient received aggressive treatment in the ER provided supportive care and currently in the ICU she is doing much better. Source: patient Exam Limitations: no limitations Date Seen 01/14/21 Time Seen by a Provider: 11:00 Attending Physician Ellyn Castellanos Julie A MD Referring Physician Date of Admission Jan 13, 2021 at 19:40 Home Medications & Allergies Home Medications Reviewed patient Home Medication Reconciliation performed by pharmacy medication reconciliations electrical controls technician and/or nursing. Patients Allergies have been reviewed. Allergies Allergies Coded Allergies ibuprofen (Verified Allergy, Mild, RASH FROM LIQUIGELS CAN TAKE PLAIN ADVIL, 12/28/08) pregabalin (Unverified Allergy, Unknown, 09/21/17) tramadol (Unverified Allergy, Unknown, 09/21/17) Past Fnypydi-Mdkvfh-Cubmuv Hx Patient Social History Marrital Status: Employed/Student: employed ([employer]) Tobacco Use?: Yes Tobacco type used: Cigarettes Smoking Status: Current Everyday Smoker Immunizations Up To Date Date of Influenza Vaccine: Oct 06, 2011 Date of Pneumonia Vaccine: May 05, 2011 Seasonal Allergies Seasonal Allergies: No Current Status Advance Directives: No Communicates: Verbally Primary Language: Scottish Preferred Spoken Language: Scottish Is interpretation needed?: No Past Medical History Surgeries: Appendectomy, Hysterectomy 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 Sexually Transmitted Disease: No Sleep Difficulties Blood Disorders: No Family Medical History PAST SURGICAL HISTORY: -MULTIPLE BILATERAL CHEST TUBES AND BILATERAL PLEURODESIS FOR MULIPTLE EPISODES OF SPONTANEOUS PNEUMOTHORAX--> 10 TIMES, PER PT -HYSTERECTOMY 12/2008 -APPENDECTOMY 1996 Review of Systems Constitutional: see HPI Physical Exam Physical Exam Vital Signs Vital Signs - First Documented 01/13/21 01/13/21 17:10 21:38 Temp 36.6 Pulse 74 Resp 16 B/P (MAP) 67/39 (48) Pulse Ox 99 O2 Delivery Room Air Capillary Refill : Less Than 3 Seconds Height, Weight, BMI Height: 5'8.00" Weight: 112lbs. 0oz. 50.819457ry; 15.46 BMI Method:Estimated General Appearance: No Apparent Distress, WD/WN, Chronically ill, Severe Distress, Thin Eyes: Bilateral Eye Normal Inspection, Bilateral Eye PERRL, Bilateral Eye EOMI HEENT: PERRL/EOMI, TMs Normal; No Moist Mucous Membranes; Other (Pale, white pallor around the mouth. No evidence of angioedema or retropharyngeal edema) Neck: Full Range of Motion, Normal Inspection Respiratory: Lungs Clear, Normal Breath Sounds, No Accessory Muscle Use, Respiratory Distress (Oxygen saturation in the low 90s) Cardiovascular: Regular Rate, Rhythm, Normal Peripheral Pulses Gastrointestinal: Normal Bowel Sounds, No Organomegaly Back: Normal Inspection, No CVA Tenderness, No Vertebral Tenderness Extremity: Normal Capillary Refill, Normal Inspection, No Pedal Edema Neurologic/Psychiatric: Other (Initial GCS 12) Skin: Normal Color, Warm/Dry Lymphatic: No Adenopathy Results Results/Procedures Labs Laboratory Tests 01/14/21 03:00 Patient resulted labs reviewed. Short Stay Diagnosis Discharge Diagnosis-Short Stay Admission Diagnosis Assessment: Anaphylactic shock due to Keflex Final Discharge Diagnosis Assessment: Anaphylactic shock due to Keflex Conclusion Plan Discharge home Diagnosis/Problems Diagnosis/Problems (1) Anaphylactic shock as adv eff correct medicin substanc proper administ Status: Acute Qualifiers: Qualified Codes: T88.6XXA - Anaphylactic reaction due to adverse effect of correct drug or medicament properly administered, initial encounter ELLYN CASTELLANOS 12, 2021 12:31
[2021-01-14] MEDS ORDERED: LORA10TA76 PO (12:34)
[2021-01-14] MEDS ORDERED: PRED10TA22 PO (12:34)
[2021-01-14 14:49] VITALS: BP 126/86
== END 2021-01-14 14:27 | disposition home or self-care (01) ==
LOC: EDUNIT# 17:11 → ER 17:12 → ICU 19:40
PROVIDERS: ADMIT Internal Medicine; ATTEND Internal Medicine
DX: T88.6XXA Anaphylactic reaction due to adverse effect of correct drug or medicament properly administered, initial encounter (principal); T36.1X5A Adverse effect of cephalosporins and other beta-lactam antibiotics, initial encounter; I48.91 Unspecified atrial fibrillation; J43.9 Emphysema, unspecified; F17.210 Nicotine dependence, cigarettes, uncomplicated; F11.10 Opioid abuse, uncomplicated; Z79.899 Other long term (current) drug therapy; Z79.2 Long term (current) use of antibiotics
CPT/HCPCS: 36415; 51702; 71045; 80048; 80053; 81000; 82805; 82947; 83605; 83735; 84100; 85025; 85610; 85730; 87040; 87081; 87088; 87636; 93005; 99291; G0378

== ENCOUNTER 2021-07-18 16:37 | Emergency (ER) | payer BC ==
[~2021-07-18] VITALS: Ht 170.2 cm; Wt 40.3 kg
[~2021-07-18 16:37] MED LIST changes: +LORA10TA76 PO; +PRED10TA22 PO
[2021-07-18] MEDS ORDERED: NS IV 1000 ML 1,000 ML IV SCH (17:15)
[2021-07-18 17:20] VITALS: BP_SYST 117; BP_SYST 123; BP_SYST 124; BP_DIAS 79; BP_DIAS 82; BP_DIAS 88
--- NOTE | 2021-07-18 17:31 | ED General ---
General Chief Complaint: Dizziness/Syncope Stated Complaint: DIZZY Nursing Triage Note: PT AMB TO RM 5 WITH COMPLAINT OF DIZZINESS. STATES STARTED APPROX 1 HR PRIOR TO ARRIVAL. Source of Information: Patient Exam Limitations: No Limitations (GABBI WEATHERS STUDENT) History of Present Illness Date Seen by Provider: Jul 18, 2021 Time Seen by Provider: 17:10 Initial Comments Chuy is a 41 yo F with history of pneumothorax and thorocotomy who presents to the ED today via private conveyance for dizziness. Pt states that 1 hour before arrival to the ED she was sitting talking with her mom when she began feeling dizzy. She describes this as the room spinning and she is unable to focus her eyes on anything. She denies any associated nausea or vomiting, but says she has had a "head fog" for the last week and has begun feeling URI symptoms. Says son is currently at home sick with viral illness. Her symptoms worsen with movement especially standing and sitting up. She tried lying down and drinking water which did not help her symptoms. Denies any fever, chills, n/v, cp. (GABBI WEATHERS STUDENT) Allergies and Home Medications Allergies Coded Allergies: ibuprofen (Verified Allergy, Mild, RASH FROM LIQUIGELS CAN TAKE PLAIN ADVIL, 12/28/08) cephalexin (Verified Allergy, Unknown, 01/15/21) Anaphylaxis pregabalin (Unverified Allergy, Unknown, 09/21/17) tramadol (Unverified Allergy, Unknown, 09/21/17) Patient Home Medication List Home Medication List Reviewed: Yes (JC SINCLAIR DO) Loratadine (Claritin) 10 Mg Tablet, 10 MG PO BID Prescribed by: ESTHER SIMMS on 01/14/21 1234 Prednisone (Prednisone) 10 Mg Tab.ds.pk, 10 MG PO BID Prescribed by: ESTHER SIMMS on 01/14/21 1234 Review of Systems Review of Systems Constitutional: No chills, No fever EENTM: blurred vision, nose congestion; No ear discharge, No hearing loss, No ear pain, No vision loss Respiratory: No cough; short of breath (2/2 anxiety) Cardiovascular: No chest pain, No palpitations Gastrointestinal: No abdominal pain, No constipation, No diarrhea Genitourinary: No dysuria, No frequency Musculoskeletal: No muscle stiffness, No muscle cramps Skin: No change in color, No change in hair/nails Psychiatric/Neurological: Anxiety; Denies Depressed (SARAHYALPHONSOGABBIAuxmoney STUDENT) Past Npzwepe-Ahusfq-Qfpuev Hx Patient Social History Tobacco Use?: Yes Tobacco type used: Cigarettes Smoking Status: Current Everyday Smoker Use of E-Cig and/or Vaping dev: No Substance use?: No Alcohol Use?: No Pt feels they are or have been: No (SARAHYALPHONSOGABBICondition One) Immunizations Up To Date Tetanus Booster (TDap): Unknown Influenza Vaccine Up-to-Date: No; Not Current ([employer]ALPHONSOGABBIA[employer]money STUDENT) Seasonal Allergies Seasonal Allergies: No ([employer]) Past Medical History Surgeries: Yes (MULTIPLE BILATERAL CHEST TUBES/PLEURODESIS) Appendectomy, Hysterectomy Respiratory: Yes (MULTIPLE SPONTANEOUS PNEUMOTHORACES/MULT BILAT CHEST TUBES/PLEURODESIS) Emphysema Cardiac: No Neurological: No 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 Sexually Transmitted Disease: No Genitourinary: No Gastrointestinal: No Musculoskeletal: No Endocrine: No HEENT: Yes (POOR DENTITION) Cancer: No Psychosocial: Yes Sleep Difficulties Integumentary: No Blood Disorders: No ([employer]ALPHONSOGABBIAuxmoney STUDENT) Family Medical History PAST SURGICAL HISTORY: -MULTIPLE BILATERAL CHEST TUBES AND BILATERAL PLEURODESIS FOR MULIPTLE EPISODES OF SPONTANEOUS PNEUMOTHORAX--> 10 TIMES, PER PT -HYSTERECTOMY 12/2008 -APPENDECTOMY 1996 (SARAHYGABBI GONG [employer] STUDENT) Physical Exam Vital Signs Vital Signs - First Documented 07/18/21 16:46 Temp 36.3 Pulse 75 Resp 12 B/P (MAP) 155/92 (113) Pulse Ox 100 O2 Delivery Room Air (URIEL AVILA) Vital Signs Capillary Refill : Less Than 3 Seconds ([employer]GABBI [employer] STUDENT) Height, Weight, BMI Height: 5'8.00" Weight: 112lbs. 0oz. 50.048337ee; 13.00 BMI Method:Estimated General Appearance: No Apparent Distress, Thin Eyes: Bilateral Eye Normal Inspection, Bilateral Eye PERRL, Bilateral Eye EOMI HEENT: PERRL/EOMI, TMs Normal, Normal ENT Inspection, Pharynx Normal, TM Abnormal (L) (mild effusion), TM Abnormal (R) (mild effusion) Neck: Full Range of Motion, Normal Inspection, Non Tender, Supple Respiratory: Chest Non Tender, Lungs Clear, Normal Breath Sounds, No Accessory Muscle Use, No Respiratory Distress Cardiovascular: Regular Rate, Rhythm, No Edema, No Gallop, No JVD, No Murmur, Normal Peripheral Pulses Gastrointestinal: Normal Bowel Sounds, No Organomegaly, No Pulsatile Mass, Non Tender, Soft Back: Normal Inspection, No CVA Tenderness, No Vertebral Tenderness Extremity: Normal Capillary Refill, Normal Inspection, Normal Range of Motion, Non Tender, No Calf Tenderness Neurologic/Psychiatric: Alert, Oriented x3, No Motor/Sensory Deficits, Normal Mood/Affect, 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 Norm as Tested Skin: Normal Color, Warm/Dry ([employer] STUDENT) Progress/Results/Core Measures Suspected Sepsis SIRS Temperature: Pulse: 75 Respiratory Rate: 12 Blood Pressure 155 /92 Mean: 113 ([employer]) Results/Orders Lab Results Laboratory Tests Test 07/18/21 16:52 07/18/21 17:54 Range/Units (URIEL AVILA) My Orders Orders - URIEL AVILA Continuous Ekg Monitoring (07/18/21 17:15) Ekg Tracing (07/18/21 17:15) Cbc With Automated Diff (07/18/21 17:15) Comprehensive Metabolic Panel (07/18/21 17:15) Hs C Reactive Protein (07/18/21 17:15) Orthostatic Vital Signs (Adult (07/18/21 17:15) Ed Iv/Invasive Line Start (07/18/21 17:15) Ns Iv 1000 Ml (Sodium Chloride 0.9%) (07/18/21 17:15) Covid 19 Inhouse Test (07/18/21 17:40) Influenza A And B By Pcr (07/18/21 17:40) Ua Culture If Indicated (07/18/21 17:58) (URIEL AVILA) Vital Signs/I&O 07/18/21 07/18/21 16:46 17:20 Temp 36.3 Pulse 75 66 71 73 Resp 12 B/P (MAP) 155/92 (113) 123/82 (96) 124/79 (94) 117/88 (98) Pulse Ox 100 O2 Delivery Room Air (URIEL AVILA) Vital Signs/I&O Capillary Refill : Less Than 3 Seconds (GABBI WEATHERS MED STUDENT) Blood Pressure Mean: 113 Progress Note : Time: 18:00 Progress Note I attest that I saw this patient alongside the medical student and agree with his documented history, physical exam and review of systems except as otherwise noted. Labs urine Covid influenza and orthostatics were ordered. Liter of fluids by IV. (URIEL AVILA) Progress Note : Progress Note 1800--ASSUMED CARE FROM DR. AVILA, LAB PENDING, RECEIVING IV FLUIDS 1835--PT IS FEELING BETTER, AND WANTS TO GO HOME. (JC SINCLAIR DO) ECG Initial ECG Impression Date: Jul 18, 2021 Initial ECG Impression Time: 16:50 Initial ECG Rate: 67 Initial ECG Rhythm: Normal Sinus Initial ECG Intervals: Normal Initial ECG Impression: Normal Initial ECG Comparisson: No Previous ECG Available Comment Normal sinus rhythm without clinically relevant ST changes. (URIEL AVILA) Departure Impression Primary Impression: Dizziness Disposition: 01 HOME, SELF-CARE Condition: Improved Departure-Patient Inst. Decision time for Depature: 18:38 (JC SINCLAIR DO) Referrals: GENOVEVA MOHR MD (PCP/Family) Primary Care Physician Patient Instructions: Dizziness, Nonvertigo, (DC) Add. Discharge Instructions: HOME, REST INCREASE YOUR FLUID INTAKE--WATER, BROTH, JELLO, GATORADE FOLLOW UP WITH [facility] IN 2-3 DAYS FOR FURTHER CARE, RETURN TO ER IF WORSE All discharge instructions reviewed with patient and/or family. Voiced understanding. GABBI WEATHERS STUDENT Jul 18, 2021 17:31 URIEL AVILA Jul 18, 2021 18:01 JC SINCLAIR DO Jul 18, 2021 18:39
[2021-07-18 18:02] LABS: BASOPHILS % (AUTO) 1 % (0-10); EOSINOPHILS # (AUTO) 0.1 10^3/uL (0.0-0.3); EOSINOPHILS % (AUTO) 2 % (0-10); HEMATOCRIT 40 % (35-52); LYMPHOCYTES # (AUTO) 1.5 10^3/uL (1.0-4.0); MEAN CORPUSCULAR HGB CONC 33 g/dL (32-36); MONOCYTES # (AUTO) 0.4 10^3/uL (0.0-1.0)
[2021-07-18 18:04] LABS: HEMOGLOBIN 13.3 g/dL (11.5-16.0); LYMPHOCYTES % (AUTO) 31 % (12-44); MEAN CORPUSCULAR HEMOGLOBIN 30 pg (25-34); MEAN CORPUSCULAR VOLUME 92 fL (80-99); MEAN PLATELET VOLUME 11.2 fL (9.0-12.2); MONOCYTES % (AUTO) 9 % (0-12); NEUTROPHILS # (AUTO) 2.8 10^3/uL (1.8-7.8); NEUTROPHILS % (AUTO) 57 % (42-75); PLATELET COUNT 125 10^3/uL (130-400); WHITE BLOOD COUNT 4.9 10^3/uL (4.3-11.0)
[2021-07-18 18:11] LABS: BILIRUBIN,URINE NEGATIVE (NEGATIVE); CLARITY,URINE CLEAR; COLOR,URINE YELLOW; GLUCOSE, URINE (UA) NEGATIVE (NEGATIVE); KETONES,URINE NEGATIVE (NEGATIVE); LEUKOCYTE ESTERASE ,URINE 1+ (NEGATIVE); NITRITE,URINE NEGATIVE (NEGATIVE); PH,URINE 5.5 (5-9); PROTEIN,URINE NEGATIVE (NEGATIVE)
[2021-07-18 18:17] LABS: ALBUMIN 4.3 GM/DL (3.2-4.5); POTASSIUM 3.6 MMOL/L (3.6-5.0)
[2021-07-18 18:19] LABS: CALCIUM 9.1 MG/DL (8.5-10.1)
[2021-07-18 18:22] LABS: BILIRUBIN,TOTAL 0.3 MG/DL (0.1-1.0)
[2021-07-18 18:24] LABS: CREATININE SERUM 0.78 MG/DL (0.60-1.30)
[2021-07-18 18:32] LABS: BACTERIA,URINE NEGATIVE /HPF; SQUAMOUS EPITHELIAL CELL,UR RARE /HPF; WBC,URINE 0-2 /HPF
[2021-07-18 18:59] VITALS: BP 137/83
== END 2021-07-18 18:59 | disposition home or self-care (01) ==
LOC: EDUNIT# 16:37 → ER 16:38
DX: R42 Dizziness and giddiness (principal); F17.210 Nicotine dependence, cigarettes, uncomplicated; Z20.822 Contact with and (suspected) exposure to COVID-19
CPT/HCPCS: 36415; 80053; 81000; 85025; 86141; 87636; 93005

== ENCOUNTER 2021-08-30 20:51 | Emergency (ER) | payer BC | END 2021-08-30 20:55 | disposition left against medical advice (07) | LOC: EDUNIT# 20:51 → ER 20:54 | DX: J98.9 Respiratory disorder, unspecified (principal) ==

== ENCOUNTER 2022-06-18 20:41 | Observation (INO) | payer BC ==
[~2022-06-18] VITALS: Ht 170 cm; Wt 44.9 kg
[2022-06-18] MEDS ORDERED: LIDOCAINE 1% INJ 20 ML VIAL ONE (20:47)
[2022-06-18] MEDS ORDERED: KETOROLAC 15 MG/ML VIAL ONE (20:49)
--- NOTE | 2022-06-18 20:54 | ED Cough/URI ---
General Chief Complaint: Respiratory Problems Stated Complaint: CHEST PAIN Nursing Triage Note: PT ARRIVAL FROM HOME VIA PRIVATE VEHICLE WITH COMPLAINT OF SUDDEN SOA X1 HOUR. PATIENT HAS HISTORY OF PNEUMOTHORAX AND COLLAPSED LUNG. PT DOES HAVE PRODUCTIVE COUGH. Source: patient Exam Limitations: no limitations History of Present Illness Date Seen by Provider: Jun 18, 2022 Time Seen by Provider: 20:53 Initial Comments To ER with sudden onset of sharp right-sided chest pain and shortness of breath. Has a history of multiple collapsed lungs status post pleurodesis. Has not had a collapsed lung in several years. She had 2 pleurodeses, the first 1 used talc and this was done in 2009 at [facility] in [facility], the second 1 was about 6 months later. Timing/Duration: just prior to arrival, getting worse Prior Episodes/Possible Cause: occasional episodes Associated Symptoms: cough Allergies and Home Medications Allergies Coded Allergies: ibuprofen (Verified Allergy, Mild, RASH FROM LIQUIGELS CAN TAKE PLAIN ADVIL, 12/28/08) cephalexin (Verified Allergy, Unknown, 01/15/21) Anaphylaxis pregabalin (Unverified Allergy, Unknown, 09/21/17) tramadol (Unverified Allergy, Unknown, 09/21/17) Patient Home Medication List Home Medication List Reviewed: Yes Loratadine (Claritin) 10 Mg Tablet, 10 MG PO BID Prescribed by: ESTHER SIMMS on 01/14/21 1234 Prednisone (Prednisone) 10 Mg Tab.ds.pk, 10 MG PO BID Prescribed by: ESTHER SIMMS on 01/14/21 1234 Review of Systems Review of Systems Constitutional: see HPI EENTM: see HPI Respiratory: see HPI, cough Cardiovascular: no symptoms reported Genitourinary: no symptoms reported Musculoskeletal: no symptoms reported Skin: no symptoms reported Psychiatric/Neurological: No Symptoms Reported Hematologic/Lymphatic: No Symptoms Reported Immunological/Allergic: no symptoms reported Past Pacdqke-Wjjojj-Xgxngf Hx Patient Social History Tobacco Use?: Yes Tobacco type used: Cigarettes Smoking Status: Current Everyday Smoker Use of E-Cig and/or Vaping dev: No Substance use?: No Alcohol Use?: No Pt feels they are or have been: No Immunizations Up To Date Tetanus Booster (TDap): Unknown Influenza Vaccine Up-to-Date: No; Not Current Seasonal Allergies Seasonal Allergies: No Past Medical History Surgeries: Yes (MULTIPLE BILATERAL CHEST TUBES/PLEURODESIS) Appendectomy, Hysterectomy Respiratory: Yes (MULTIPLE SPONTANEOUS PNEUMOTHORACES/MULT BILAT CHEST TUBES/PLEURODESIS) Emphysema Cardiac: No Neurological: No 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 Sexually Transmitted Disease: No Genitourinary: No Gastrointestinal: No Musculoskeletal: No Endocrine: No HEENT: Yes (POOR DENTITION) Cancer: No Psychosocial: Yes Sleep Difficulties Integumentary: No Blood Disorders: No Family Medical History PAST SURGICAL HISTORY: -MULTIPLE BILATERAL CHEST TUBES AND BILATERAL PLEURODESIS FOR MULIPTLE EPISODES OF SPONTANEOUS PNEUMOTHORAX--> 10 TIMES, PER PT -HYSTERECTOMY 12/2008 -APPENDECTOMY 1996 Physical Exam Vital Signs - First Documented 06/18/22 20:45 Temp 36.8 Pulse 85 Resp 24 B/P (MAP) 128/90 (103) Pulse Ox 98 O2 Delivery Room Air Capillary Refill : Less Than 3 Seconds Height: 5'8.00" Weight: 112lbs. 0oz. 50.950628pt; 13.00 BMI Method:Estimated General Appearance: WD/WN, moderate distress, thin, other (very diminished Lung sounds on the right, diminished on the left but audible. shallow breathing. Oxygen saturation 95 to 100% on room air.) Eyes: Bilateral Eye Normal Inspection, Bilateral Eye PERRL, Bilateral Eye EOMI HEENT: PERRL/EOMI, normal ENT inspection Neck: non-tender, full range of motion Respiratory: no respiratory distress, no accessory muscle use, decreased breath sounds Cardiovascular: regular rate, rhythm, no murmur Gastrointestinal: normal bowel sounds, non tender, soft Neurologic/Psychiatric: alert, normal mood/affect, oriented x 3 Skin: normal color, warm/dry Progress/Results/Core Measures Suspected Sepsis SIRS Temperature: Pulse: 85 Respiratory Rate: 24 Laboratory Tests 06/18/22 19:48: White Blood Count 8.5 Blood Pressure 128 /90 Mean: 103 Laboratory Tests 06/18/22 19:48: Creatinine 1.00, INR Comment 0.9, Platelet Count 219, Total Bilirubin 0.2 Results/Orders Lab Results Laboratory Tests Test 06/18/22 19:48 Range/Units White Blood Count 8.5 4.3-11.0 10^3/uL Red Blood Count 4.57 3.80-5.11 10^6/uL Hemoglobin 13.9 11.5-16.0 g/dL Hematocrit 41 35-52 % Mean Corpuscular Volume 89 80-99 fL Mean Corpuscular Hemoglobin 30 25-34 pg Mean Corpuscular Hemoglobin Concent 34 32-36 g/dL Red Cell Distribution Width 11.5 10.0-14.5 % Platelet Count 219 130-400 10^3/uL Mean Platelet Volume 10.3 9.0-12.2 fL Immature Granulocyte % (Auto) 1 % Neutrophils (%) (Auto) 61 42-75 % Lymphocytes (%) (Auto) 29 12-44 % Monocytes (%) (Auto) 6 0-12 % Eosinophils (%) (Auto) 2 0-10 % Basophils (%) (Auto) 1 0-10 % Neutrophils # (Auto) 5.2 1.8-7.8 10^3/uL Lymphocytes # (Auto) 2.5 1.0-4.0 10^3/uL Monocytes # (Auto) 0.5 0.0-1.0 10^3/uL Eosinophils # (Auto) 0.2 0.0-0.3 10^3/uL Basophils # (Auto) 0.1 0.0-0.1 10^3/uL Immature Granulocyte # (Auto) 0.0 0.0-0.1 10^3/uL Prothrombin Time 12.4 12.2-14.7 SEC INR Comment 0.9 0.8-1.4 Activated Partial Thromboplast Time 33 24-35 SEC Sodium Level 140 135-145 MMOL/L Potassium Level 3.7 3.6-5.0 MMOL/L Chloride Level 101 98-107 MMOL/L Carbon Dioxide Level 24 21-32 MMOL/L Anion Gap 15 H 5-14 MMOL/L Blood Urea Nitrogen 10 7-18 MG/DL Creatinine 1.00 0.60-1.30 MG/DL Estimat Glomerular Filtration Rate 73 BUN/Creatinine Ratio 10 Glucose Level 105 70-105 MG/DL Calcium Level 9.9 8.5-10.1 MG/DL Corrected Calcium 8.5-10.1 MG/DL Total Bilirubin 0.2 0.1-1.0 MG/DL Aspartate Amino Transf (AST/SGOT) 17 5-34 U/L Alanine Aminotransferase (ALT/SGPT) 7 0-55 U/L Alkaline Phosphatase 64 40-136 U/L Total Protein 7.7 6.4-8.2 GM/DL Albumin 4.6 H 3.2-4.5 GM/DL My Orders Orders - PABLO WALLACE APRN Ketorolac Injection (Toradol Injection) (06/18/22 21:00) Ct Chest W (06/18/22 20:54) Ua Culture If Indicated (06/18/22 20:56) Iohexol Injection (Omnipaque 350 Mg/Ml 1 (06/18/22 21:00) Received Contrast (Hold Metformin- Contr (06/18/22 21:00) Ns (Ivpb) (Sodium Chloride 0.9% Ivpb Bag (06/18/22 21:00) Hydromorphone Injection (Dilaudid Inject (06/18/22 21:30) Medications Given in ED Current Medications Medications Dose Ordered Sig/Rnoal Route Start Time Stop Time Status Last Admin Dose Admin Hydromorphone HCl 1 mg ONCE ONCE IV 06/18/22 21:00 06/18/22 21:01 DC 06/18/22 20:53 1 MG Ketorolac Tromethamine 15 mg STK-MED ONCE .ROUTE 06/18/22 20:49 06/18/22 20:52 DC 06/18/22 20:54 15 MG Vital Signs/I&O 06/18/22 20:45 Temp 36.8 Pulse 85 Resp 24 B/P (MAP) 128/90 (103) Pulse Ox 98 O2 Delivery Room Air Capillary Refill : Less Than 3 Seconds Blood Pressure Mean: 103 Departure Communication (Admissions) NAME: SHILOH DOUGLAS [facility] REC#: [id number] PT STATUS: REG ER : 1980 PHYSICIAN: PABLO WALLACE APRN ADMIT DATE: 06/18/22/ER Signed Date of Exam:06/18/22 CT CHEST W PROCEDURE: CT chest with contrast only. TECHNIQUE: Multiple contiguous axial images were obtained through the chest after administration of intravenous contrast. Auto Exposure Controls were utilized during the CT exam to meet ALARA standards for radiation dose reduction. INDICATION: Cough. COMPARED with chest CT from December 2012 and correlated with multiple previous chest radiographs. FINDINGS: When compared to the prior more remote CT, there is progressive severe bullous fibroemphysematous lung disease and mild progression of right pneumothorax having increased at the subpulmonic base where there is no evidence of tension. There are multiple areas of tacked down thickened pleura with the visceral and parietal pleura adherent and no evidence for associated tension. The pneumothorax is probably around 20-25% today, previously around 10%. There is no evidence of tension. There are multiple peripheral pulmonary cysts at the apical greater than basilar portions of the lungs, chronic but mildly increased. Some curvilinear areas of pleural parenchymal calcification showed mild progression. No pleural fluid. No depression of the diaphragms. No cardiomediastinal displacement. The atherosclerotic aorta is nonaneurysmal. There is some low-density frothy debris, likely mucus within the trachea. No bronchiectasis. No acute chest wall pathology. The visualized upper abdomen showing chronic calcifications at the level of the pancreatic head without visualized acute fluid collection or acute pancreatitis. IMPRESSION: Since 2012, there has been progressive fibroemphysematous lung disease with mild increased size of a previously demonstrated right pneumothorax of around 20% without tension or pleural fluid. Nonacute aorta. No central PE identified. No chest wall fracture. Peripheral air cyst and bullous disease noted, mildly increased. No adenopathy. Results discussed with the Emergency Room physician Dictated by: Dictated on workstation # [id number] Dict: 06/18/[id number] Trans: 06/18/222156 [facility] [id number] Interpreted by: MANISH VALDES Electronically signed by: MANISH VALDES 06/18/222156 Family Conversation Spoke with Dr. Pratt and Dr. Simms. Will admit to ICU serial chest x-rays. Patient is on Suboxone at home, given 2 mg of Dilaudid and 15 mg of Toradol here in the emergency room with good pain control. NAME: SHILOH DOUGLAS [facility] REC#: [id number] PT STATUS: REG ER : 1980 PHYSICIAN: JC SINCLAIR DO ADMIT DATE: 06/18/22/ER Draft Date of Exam:06/18/22 CHEST 1 VIEW, AP/PA ONLY INDICATION: Dyspnea COMPARISON: 01/13/2021 FINDINGS: Chronic fibroemphysematous changes in the lungs present with symmetrical air trapping, stable. No new pulmonary parenchymal pathology. The heart size and vascularity stable. IMPRESSION: Stable chronic lung disease. Dictated on workstation # [id number] Dict: 06/18/222053 Trans: 06/18/222057 [facility] [id number] Interpreted by: MANISH VALDES Electronically signed by: Impression Primary Impression: Pneumothorax Disposition: ADMITTED INPATIENT Condition: Stable Admissions Decision to Admit Reason: Admit from ER (General) Decision to Admit/Date: Jun 18, 2022 Time/Decision to Admit Time: 21:05 Departure-Patient Inst. Referrals: GENOVEVA MOHR MD (PCP/Family) Primary Care Physician PABLO WALLACE APRN Jun 18, 2022 20:54
[2022-06-18 20:57] LABS: BASOPHILS # (AUTO) 0.1 10^3/uL (0.0-0.1); BASOPHILS % (AUTO) 1 % (0-10); EOSINOPHILS # (AUTO) 0.2 10^3/uL (0.0-0.3); EOSINOPHILS % (AUTO) 2 % (0-10); HEMATOCRIT 41 % (35-52); HEMOGLOBIN 13.9 g/dL (11.5-16.0); LYMPHOCYTES # (AUTO) 2.5 10^3/uL (1.0-4.0); LYMPHOCYTES % (AUTO) 29 % (12-44); MEAN CORPUSCULAR HEMOGLOBIN 30 pg (25-34); MEAN CORPUSCULAR HGB CONC 34 g/dL (32-36); MEAN CORPUSCULAR VOLUME 89 fL (80-99); MEAN PLATELET VOLUME 10.3 fL (9.0-12.2); MONOCYTES # (AUTO) 0.5 10^3/uL (0.0-1.0); MONOCYTES % (AUTO) 6 % (0-12); NEUTROPHILS # (AUTO) 5.2 10^3/uL (1.8-7.8); NEUTROPHILS % (AUTO) 61 % (42-75); PLATELET COUNT 219 10^3/uL (130-400); WHITE BLOOD COUNT 8.5 10^3/uL (4.3-11.0)
--- NOTE | 2022-06-18 20:58 | Diagnostic Imaging Report ---
INDICATION: Dyspnea COMPARISON: 01/13/2021 FINDINGS: Chronic fibroemphysematous changes in the lungs present with symmetrical air trapping, stable. No new pulmonary parenchymal pathology. The heart size and vascularity stable. IMPRESSION: Stable chronic lung disease. Dictated by: Dictated on workstation # [id number]
[2022-06-18] MEDS ORDERED: IOHEXOL 350 MG/ML 100 ML (OMNIPAQUE 350) VIAL IV ONE (21:00)
[2022-06-18] MEDS ORDERED: KETOROLAC 30 MG/ML VIAL IVP ONE (21:00)
[2022-06-18] MEDS ORDERED: HYDROmorphone 2 MG/ML VIAL (DILAUDID) IV ONE ×2 (21:00→21:30)
[2022-06-18] MEDS ORDERED: NS 100 ML (IVPB) BAG IV ONE (21:00)
[2022-06-18] MEDS ORDERED: HOLD METFORMIN - RECEIVED CONTRAST 20 ML VIAL IV SCH (21:00)
[2022-06-18 21:11] LABS: INR 0.9 (0.8-1.4); PROTHROMBIN TIME PATIENT 12.4 SEC (12.2-14.7)
[2022-06-18 21:20] LABS: ALANINE AMINOTRANSFERASE 7 U/L (0-55); ALBUMIN 4.6 GM/DL (3.2-4.5); ALKALINE PHOSPHATASE 64 U/L (40-136); BILIRUBIN,TOTAL 0.2 MG/DL (0.1-1.0); BUN/CREATININE RATIO 10; CALCIUM 9.9 MG/DL (8.5-10.1); CARBON DIOXIDE 24 MMOL/L (21-32); CHLORIDE 101 MMOL/L (98-107); GFR ESTIMATED 73; GLUCOSE 105 MG/DL (70-105); POTASSIUM 3.7 MMOL/L (3.6-5.0); SODIUM 140 MMOL/L (135-145); TOTAL PROTEIN 7.7 GM/DL (6.4-8.2)
--- NOTE | 2022-06-18 21:36 | Diagnostic Imaging Report ---
PROCEDURE: CT chest with contrast only. TECHNIQUE: Multiple contiguous axial images were obtained through the chest after administration of intravenous contrast. Auto Exposure Controls were utilized during the CT exam to meet ALARA standards for radiation dose reduction. INDICATION: Cough. COMPARED with chest CT from December 2012 and correlated with multiple previous chest radiographs. FINDINGS: When compared to the prior more remote CT, there is progressive severe bullous fibroemphysematous lung disease and mild progression of right pneumothorax having increased at the subpulmonic base where there is no evidence of tension. There are multiple areas of tacked down thickened pleura with the visceral and parietal pleura adherent and no evidence for associated tension. The pneumothorax is probably around 20-25% today, previously around 10%. There is no evidence of tension. There are multiple peripheral pulmonary cysts at the apical greater than basilar portions of the lungs, chronic but mildly increased. Some curvilinear areas of pleural parenchymal calcification showed mild progression. No pleural fluid. No depression of the diaphragms. No cardiomediastinal displacement. The atherosclerotic aorta is nonaneurysmal. There is some low-density frothy debris, likely mucus within the trachea. No bronchiectasis. No acute chest wall pathology. The visualized upper abdomen showing chronic calcifications at the level of the pancreatic head without visualized acute fluid collection or acute pancreatitis. IMPRESSION: Since 2012, there has been progressive fibroemphysematous lung disease with mild increased size of a previously demonstrated right pneumothorax of around 20% without tension or pleural fluid. Nonacute aorta. No central PE identified. No chest wall fracture. Peripheral air cyst and bullous disease noted, mildly increased. No adenopathy. Results discussed with the Emergency Room physician Dictated by: Dictated on workstation # [id number]
[2022-06-18 22:16] LABS: BILIRUBIN,URINE NEGATIVE (NEGATIVE); CLARITY,URINE CLEAR; COLOR,URINE YELLOW; GLUCOSE, URINE (UA) NEGATIVE (NEGATIVE); KETONES,URINE NEGATIVE (NEGATIVE); LEUKOCYTE ESTERASE ,URINE 2+ (NEGATIVE); NITRITE,URINE POSITIVE (NEGATIVE); PH,URINE 6.5 (5-9); PROTEIN,URINE NEGATIVE (NEGATIVE)
[2022-06-18 22:22] LABS: BACTERIA,URINE MODERATE /HPF; SQUAMOUS EPITHELIAL CELL,UR 0-2 /HPF
[2022-06-18] MEDS ORDERED: TRIM/SULFAMETH 160/800 (SEPTRA DS) TAB PO ONE (22:30)
[2022-06-18] MEDS ORDERED: ONDANSETRON 4 MG/2 ML (SDV) Z0FRAN IV PRN (23:00)
[2022-06-18] MEDS ORDERED: LACTATED RINGERS 1,000 ML IV SCH (23:00)
[2022-06-18 23:40] VITALS: BP 106/70
[2022-06-18] MEDS ORDERED: RT-ALBUTEROL SULF 2.5 MG/3 ML PRE-MIX VIAL INH PRN (23:45)
[2022-06-18] MEDS: HYDROmorphone 2 MG/ML VIAL (DILAUDID) IV PRN (23:47)
[2022-06-19] MEDS ORDERED: NS IV 500 ML 500 ML IV PRN (00:45)
[2022-06-19] MEDS: RT-ALBUTEROL SULF 2.5 MG/3 ML PRE-MIX VIAL INH SCH ×4 (02:53→21:14)
[2022-06-19] MEDS: HYDROmorphone 2 MG/ML VIAL (DILAUDID) IV PRN ×2 (04:21→08:05)
[2022-06-19 05:05] LABS: BASOPHILS # (AUTO) 0.1 10^3/uL (0.0-0.1); BASOPHILS % (AUTO) 1 % (0-10); EOSINOPHILS # (AUTO) 0.1 10^3/uL (0.0-0.3); EOSINOPHILS % (AUTO) 2 % (0-10); HEMATOCRIT 35 % (35-52); HEMOGLOBIN 11.6 g/dL (11.5-16.0); LYMPHOCYTES % (AUTO) 28 % (12-44); MEAN CORPUSCULAR HEMOGLOBIN 30 pg (25-34); MEAN CORPUSCULAR HGB CONC 33 g/dL (32-36); MEAN CORPUSCULAR VOLUME 90 fL (80-99); MEAN PLATELET VOLUME 10.8 fL (9.0-12.2); MONOCYTES # (AUTO) 0.6 10^3/uL (0.0-1.0); MONOCYTES % (AUTO) 8 % (0-12); NEUTROPHILS # (AUTO) 4.5 10^3/uL (1.8-7.8); NEUTROPHILS % (AUTO) 62 % (42-75); PLATELET COUNT 173 10^3/uL (130-400); WHITE BLOOD COUNT 7.2 10^3/uL (4.3-11.0)
[2022-06-19 05:22] LABS: ALANINE AMINOTRANSFERASE < 6 U/L (0-55); ALBUMIN 3.7 GM/DL (3.2-4.5); ALKALINE PHOSPHATASE 53 U/L (40-136); BILIRUBIN,TOTAL 0.2 MG/DL (0.1-1.0); BUN/CREATININE RATIO 11; CALCIUM 8.9 MG/DL (8.5-10.1); CARBON DIOXIDE 23 MMOL/L (21-32); CHLORIDE 106 MMOL/L (98-107); GFR ESTIMATED 95; GLUCOSE 86 MG/DL (70-105); MAGNESIUM 1.9 MG/DL (1.6-2.4); PHOSPHORUS 4.7 MG/DL (2.3-4.7); POTASSIUM 4.2 MMOL/L (3.6-5.0); SODIUM 140 MMOL/L (135-145); TOTAL PROTEIN 6.2 GM/DL (6.4-8.2)
[2022-06-19] MEDS ORDERED: MAGNESIUM 1 GM/100 ML IVPB 100 ML IV SCH (06:00)
[2022-06-19] MEDS ORDERED: POTASSIUM CL 10MEQ/50ML IVPB 50 ML IV SCH (06:00)
[2022-06-19] MEDS ORDERED: KCL 20 MEQ TAB (K-DUR) PO SCH (06:00)
--- NOTE | 2022-06-19 07:11 | Consultation - Surgery ---
[facility] 06/19/22 0711: History of Present Illness History of Present Illness Patient Consulted On(molly/time) 06/19/22 07:03 Date Seen by Provider: Jun 19, 2022 Time Seen by Provider: 07:03 History of Present Illness Shiloh is a 41 y F with a history of pneumothorax with multiple chest tubes and s/p bilateral pleurodeses who presented to the ED last night stating she had sudden SOA and right sided chest pain since 7:30 that evening. Reports her last chest tube was over 10 years ago, first placed in 2009. Today she notes pain at a 4-5/10 in severity at the right chest radiating down the right side that improves with dilaudid. Denies CP otherwise or palpitations, N/V/D, HEBERT, fever, change in vision. Currently on 5L O2 by nasal cannula. She reports to me that s he is allergic to amoxicillin with anaphylaxis. Current >1ppd smoker of cigarettes for 25 years, denies alcohol or recreational drug use. Allergies and Home Medications Allergies Coded Allergies: ibuprofen (Verified Allergy, Mild, RASH FROM LIQUIGELS CAN TAKE PLAIN ADVIL, 12/28/08) cephalexin (Verified Allergy, Unknown, 01/15/21) Anaphylaxis pregabalin (Unverified Allergy, Unknown, 09/21/17) tramadol (Unverified Allergy, Unknown, 09/21/17) Patient Home Medication List Home Medication List Reviewed: Yes Buprenorphine HCl/Naloxone HCl (Suboxone 8 mg-2 mg Sl Film) 8 Mg-2 Mg Film, 2 EACH SL DAILY, (Reported) Entered as Reported by: NERISSA WANG on 06/19/22 105 Last Action: Edited Estradiol (Estrace Tablet) 1 Mg Tablet, 1 MG PO DAILY, (Reported) Entered as Reported by: NERISSA WANG on 06/19/22 105 Last Action: Reviewed Ibuprofen (Ibuprofen) 200 Mg Tablet, 400 MG PO Q6H PRN for PAIN-MILD (1-4), (Reported) Entered as Reported by: NERISSA WANG on 06/19/22 105 Last Action: Reviewed Discontinued Medications Loratadine (Claritin) 10 Mg Tablet, 10 MG PO BID Discontinued Reason: No Longer Taking Prescribed by: ESTHER SIMMS on 01/14/21 1234 Last Action: Discontinued Prednisone (Prednisone) 10 Mg Tab.ds.pk, 10 MG PO BID Discontinued Reason: No Longer Taking Prescribed by: ESTHER SIMMS on 01/14/21 4194 Last Action: Discontinued Past Ewolaro-Jiaaxr-Lehohq Hx Patient Social History Drug of Choice: History of OPIATE ABUSE--ON SUBOXONE Smoking Status: Heavy Tobacco Smoker Type Used: Cigarettes 2nd Hand Smoke Exposure: Yes Recent Hopitalizations: No Alcohol Use?: No Have you traveled recently?: No Immunizations Up To Date Tetanus Booster (TDap): Unknown Date of Pneumonia Vaccine: May 05, 2011 Date of Influenza Vaccine: Oct 06, 2011 Seasonal Allergies Seasonal Allergies: No Surgeries History of Surgeries: Yes (MULTIPLE BILATERAL CHEST TUBES/PLEURODESIS) Surgeries: Appendectomy, Hysterectomy Respiratory History of Respiratory Disorde: Yes (MULTIPLE SPONTANEOUS PNEUMOTHORACES/MULT BILAT CHEST TUBES/PLEURODESIS) Respiratory Disorders: Emphysema Cardiovascular History of Cardiac Disorders: No Neurological History of Neurological Disord: No Reproductive System [employer] History: Hysterectomy Genitourinary History of Genitourinary Disor: No Gastrointestinal History of Gastrointestinal Di: No Musculoskeletal History of Musculoskeletal Dis: No Endocrine History of Endocrine Disorders: No HEENT History of HEENT Disorders: Yes (POOR DENTITION) Loss of Vision: Denies Hearing Impairment: Denies Cancer History of Cancer: No Psychosocial History of Psychiatric Problem: Yes Behavioral Health Disorders: Sleep Difficulties Integumentary History of Skin or Integumenta: No Blood Transfusions History of Blood Disorders: No Family Medical History Significant Family History: No Pertinent Family Hx Review of Systems-General Constitutional: No chills, No diaphoresis EENTM: No hearing loss, No blurred vision Respiratory: cough, short of breath Cardiovascular: chest pain (right sided chest pain radiating down right flank); No palpitations Gastrointestinal: No abdominal pain, No nausea, No vomiting Genitourinary: No decreased output, No discharge : No Musculoskeletal: No joint pain, No joint swelling Skin: No change in color, No change in hair/nails Psychiatric/Neurological: Denies Headache, Denies Numbness All Other Systems Reviewed Negative Unless Noted: Yes Physical Exam-General Problems Physical Exam Vital Signs Vital Signs - First Documented 06/18/22 06/18/22 06/19/22 20:45 23:40 04:23 Temp 36.8 Pulse 85 Resp 24 B/P (MAP) 128/90 (103) Pulse Ox 98 O2 Delivery Room Air O2 Flow Rate 2.00 FiO2 21 Capillary Refill : Less Than 3 Seconds General Appearance: thin, other (chronically ill) HEENT: PERRL/EOMI, normal ENT inspection Neck: non-tender, supple Respiratory: decreased breath sounds (right side diminished, left side faint), other (shallow breathing) Cardiovascular: normal peripheral pulses, no JVD Gastrointestinal: non tender, soft Rectal: deferred Back: normal inspection, no CVA tenderness, no vertebral tenderness Extremities: non-tender, no pedal edema Neurologic/Psychiatric: alert, oriented x 3 Skin: normal color, warm/dry Lymphatic: no adenopathy Comments MSK: No TTP over chest or flanks Data Review Labs Laboratory Tests 06/18/22 19:48: White Blood Count 8.5, Red Blood Count 4.57, Hemoglobin 13.9, Hematocrit 41, Mean Corpuscular Volume 89, Mean Corpuscular Hemoglobin 30, Mean Corpuscular Hemoglobin Concent 34, Red Cell Distribution Width 11.5, Platelet Count 219, Mean Platelet Volume 10.3, Immature Granulocyte % (Auto) 1, Neutrophils (%) (Auto) 61, Lymphocytes (%) (Auto) 29, Monocytes (%) (Auto) 6, Eosinophils (%) (Auto) 2, Basophils (%) (Auto) 1, Neutrophils # (Auto) 5.2, Lymphocytes # (Auto) 2.5, Monocytes # (Auto) 0.5, Eosinophils # (Auto) 0.2, Basophils # (Auto) 0.1, Immature Granulocyte # (Auto) 0.0, Prothrombin Time 12.4, INR Comment 0.9, Activated Partial Thromboplast Time 33, Sodium Level 140, Potassium Level 3.7, Chloride Level 101, Carbon Dioxide Level 24, Anion Gap 15H, Blood Urea Nitrogen 10, Creatinine 1.00, Estimat Glomerular Filtration Rate 73, BUN/Creatinine Ratio 10, Glucose Level 105, Calcium Level 9.9, Corrected Calcium , Total Bilirubin 0.2, Aspartate Amino Transf (AST/SGOT) 17, Alanine Aminotransferase (ALT/SGPT) 7, Alkaline Phosphatase 64, Total Protein 7.7, Albumin 4.6H 06/18/22 22:08: Urine Color YELLOW, Urine Clarity CLEAR, Urine pH 6.5, Urine Specific [place] <=1.005, Urine Protein NEGATIVE, Urine Glucose (UA) NEGATIVE, Urine Ketones NEGATIVE, Urine Nitrite POSITIVEH, Urine Bilirubin NEGATIVE, Urine Urobilinogen 0.2, Urine Leukocyte Esterase 2+H, Urine RBC (Auto) TRACE-IH, Urine RBC NONE, Urine WBC 5-10H, Urine Squamous Epithelial Cells 0-2, Urine Renal Epithelial Cells NONE, Urine Crystals NONE, Urine Bacteria MODERATEH, Urine Casts NONE, Urine Mucus NEGATIVE, Urine Culture Indicated YES 06/19/22 04:30: White Blood Count 7.2, Red Blood Count 3.90, Hemoglobin 11.6, Hematocrit 35, Mean Corpuscular Volume 90, Mean Corpuscular Hemoglobin 30, Mean Corpuscular Hemoglobin Concent 33, Red Cell Distribution Width 11.6, Platelet Count 173, Mean Platelet Volume 10.8, Immature Granulocyte % (Auto) 0, Neutrophils (%) (Au to) 62, Lymphocytes (%) (Auto) 28, Monocytes (%) (Auto) 8, Eosinophils (%) (Auto) 2, Basophils (%) (Auto) 1, Neutrophils # (Auto) 4.5, Lymphocytes # (Auto) 2.0, Monocytes # (Auto) 0.6, Eosinophils # (Auto) 0.1, Basophils # (Auto) 0.1, Immature Granulocyte # (Auto) 0.0, Sodium Level 140, Potassium Level 4.2, Chloride Level 106, Carbon Dioxide Level 23, Anion Gap 11, Blood Urea Nitrogen 9, Creatinine 0.80, Estimat Glomerular Filtration Rate 95, BUN/Creatinine Ratio 11, Glucose Level 86, Calcium Level 8.9, Corrected Calcium 9.1, Total Bilirubin 0.2, Aspartate Amino Transf (AST/SGOT) 12, Alanine Aminotransferase (ALT/SGPT) < 6, Alkaline Phosphatase 53, Total Protein 6.2L, Albumin 3.7, Phosphorus Level 4.7, Magnesium Level 1.9 Microbiology 06/18/22 Urine Culture - Preliminary, Resulted Gram Negative [facility], [place] NAME: SHIRA DOUGLASANGELA [facility] REC#: [id number] PT STATUS: REG ER : 1980 PHYSICIAN: PABLO WALLACE APRN ADMIT DATE: 06/18/22/ER Signed Date of Exam:06/18/22 CT CHEST W PROCEDURE: CT chest with contrast only. TECHNIQUE: Multiple contiguous axial images were obtained through the chest after administration of intravenous contrast. Auto Exposure Controls were utilized during the CT exam to meet ALARA standards for radiation dose reduction. INDICATION: Cough. COMPARED with chest CT from December 2012 and correlated with multiple previous chest radiographs. FINDINGS: When compared to the prior more remote CT, there is progressive severe bullous fibroemphysematous lung disease and mild progression of right pneumothorax having increased at the subpulmonic base where there is no evidence of tension. There are multiple areas of tacked down thickened pleura with the visceral and parietal pleura adherent and no evidence for associated tension. The pneumothorax is probably around 20-25% today, previously around 10%. There is no evidence of tension. There are multiple peripheral pulmonary cysts at the apical greater than basilar portions of the lungs, chronic but mildly increased. Some curvilinear areas of pleural parenchymal calcification showed mild progression. No pleural fluid. No depression of the diaphragms. No cardiomediastinal displacement. The atherosclerotic aorta is nonaneurysmal. There is some low-density frothy debris, likely mucus within the trachea. No bronchiectasis. No acute chest wall pathology. The visualized upper abdomen showing chronic calcifications at the level of the pancreatic head without visualized acute fluid collection or acute pancreatitis. IMPRESSION: Since 2012, there has been progressive fibroemphysematous lung disease with mild increased size of a previously demonstrated right pneumothorax of around 20% without tension or pleural fluid. Nonacute aorta. No central PE identified. No chest wall fracture. Peripheral air cyst and bullous disease noted, mildly increased. No adenopathy. Results discussed with the Emergency Room physician Dictated by: Dictated on workstation # [id number] Dict: 06/18/222117 Trans: 06/18/222156 [facility] [id number] Interpreted by: MANISH VALDES Electronically signed by: MANISH VALDES 06/18/222156 Assessment/Plan Assessment/Plan Assessment/Plan right pneumothorax hx multiple spantaneous pneumothoraces s/p multiple b/l chest tubes and b/l pleurodeses right chest pain current heavy smoker chest CT with progressive fibroemphysematous lung disease with mild increased size of a previously demonstrated right pneumothorax of around 20% repeat CXR pending 5L O2 via nasal cannula pain control-continue monitor O2 sats BALDO ROSARIO DO 06/19/22 8483: History of Present Illness History of Present Illness History of Present Illness Consult requested by Dr. Simms for right pneumothorax. Patient is a 41-year-old female whose had multiple pneumothoraces and has had bilateral pleurodesis in the past with thoracotomies. Patient states that yesterday she is at work started having more shortness of breath and chest pain on the right side. More in the right flank. She states that this felt like her lungs previously when she has had pneumothoraces. Patient states that it was severe pain currently she has minimal pain at this time she rates her pain at about a 2 out of 10 at the time of me seeing her. Patient states that she has not had to take as much pain medication later this afternoon. She is wanting to go home. She had a CT scan that showed her chronic lung disease but also with right pneumothorax small. Chest x-ray today just demonstrating chronic bullous lung disease. Patient states she's a heavy smoker and not intending to stop. Allergies and Home Medications Allergies Coded Allergies: ibuprofen (Verified Allergy, Mild, RASH FROM LIQUIGELS CAN TAKE PLAIN ADVIL, 12/28/08) cephalexin (Verified Allergy, Unknown, 01/15/21) Anaphylaxis pregabalin (Unverified Allergy, Unknown, 09/21/17) tramadol (Unverified Allergy, Unknown, 09/21/17) Patient Home Medication List Home Medication List Reviewed: Yes Buprenorphine HCl/Naloxone HCl (Suboxone 8 mg-2 mg Sl Film) 8 Mg-2 Mg Film, 2 EACH SL DAILY, (Reported) Entered as Reported by: NERISSA WANG on 06/19/22 105 Last Action: Edited Estradiol (Estrace Tablet) 1 Mg Tablet, 1 MG PO DAILY, (Reported) Entered as Reported by: NERISSA WANG on 06/19/22 105 Last Action: Reviewed Ibuprofen (Ibuprofen) 200 Mg Tablet, 400 MG PO Q6H PRN for PAIN-MILD (1-4), (Reported) Entered as Reported by: NERISSA WANG on 06/19/22 105 Last Action: Reviewed Discontinued Medications Loratadine (Claritin) 10 Mg Tablet, 10 MG PO BID Discontinued Reason: No Longer Taking Prescribed by: ESTHER SIMMS on 01/14/21 1234 Last Action: Discontinued Prednisone (Prednisone) 10 Mg Tab.ds.pk, 10 MG PO BID Discontinued Reason: No Longer Taking Prescribed by: ESTHER SIMMS on 01/14/21 1234 Last Action: Discontinued Past Klmwyyv-Pntxne-Fqcenx Hx Patient Social History Smoking Status: Heavy Tobacco Smoker Reviewed Nursing Assessment Reviewed/Agree w Nursing PMH: Yes Family Medical History Significant Family History: No Pertinent Family Hx Review of Systems-General Constitutional: No chills, No diaphoresis EENTM: No hearing loss, No blurred vision Respiratory: cough, short of breath Cardiovascular: chest pain (right sided chest pain radiating down right flank); No palpitations Gastrointestinal: No abdominal pain, No nausea, No vomiting Genitourinary: No decreased output, No discharge : No Musculoskeletal: No joint pain, No joint swelling Skin: No change in color, No change in hair/nails Psychiatric/Neurological: Denies Anxiety, Denies Depressed, Denies Emotional Problems, Denies Headache, Denies Numbness All Other Systems Reviewed Negative Unless Noted: Yes (Negative excepted noted.) Physical Exam-General Problems Physical Exam General Appearance: no apparent distress, thin, other (chronically ill) HEENT: PERRL/EOMI Neck: non-tender, supple Respiratory: No respiratory distress; decreased breath sounds (right side diminished, left side faint), other (shallow breathing) Cardiovascular: normal peripheral pulses, no JVD Gastrointestinal: non tender, soft Rectal: deferred Back: normal inspection, no CVA tenderness, no vertebral tenderness Extremities: non-tender, no pedal edema Neurologic/Psychiatric: alert, normal mood/affect, oriented x 3 Skin: normal color, warm/dry Lymphatic: no adenopathy Assessment/Plan Assessment/Plan Assessment/Plan right pneumothorax hx multiple spantaneous pneumothoraces history of multiple chest tubes and b/l pleurodeses right chest pain current heavy smoker chest CT with progressive fibroemphysematous lung disease with mild increased size of a previously demonstrated right pneumothorax of around 20% repeat CXR emphysematous disease O2 via nasal cannula pain control-continue monitor O2 sats repeat chest x ray in am if no pneumothorax on chest xray likely could go home. Supervisory-Addendum Brief Verification & Attestation Participated in pt care: history, MDM, physical Personally performed: exam, history, MDM, supervision of care Care discussed with: Medical Student Procedures: n/a Results interpretation: Verified all documentation Verification and Attestation of Medical Student E/M Service A medical student performed and documented this service in my presence. I reviewed and verified all information documented by the medical student and made modifications to such information, when appropriate. I personally performed the physical exam and medical decision making. Baldo Rosario, Jun 19, 2022,16:57 ANSON HOLM Jun 19, 2022 07:11 BALDO ROSARIO DO Jun 19, 2022 16:53
[2022-06-19] MEDS: TRIM/SULFAMETH 160/800 (SEPTRA DS) TAB PO SCH ×2 (08:04→17:16)
--- NOTE | 2022-06-19 08:38 | Diagnostic Imaging Report ---
INDICATION: Pneumothorax. TECHNIQUE: Single view chest 6:26 AM. CORRELATION STUDY: 06/18/2022 FINDINGS: The heart size, mediastinal configuration and pulmonary vascularity are within normal limits. Hyperinflated lung english with prominent interstitial markings. Biapical fibroemphysematous type change is again demonstrated. Suture line to the lung apices again demonstrated. Biapical pleural thickening. IMPRESSION: 1. Generally stable, chronic appearing lung disease. Rather advanced bullous and fibrous type change about the bilateral lung apices, right greater than left. Dictated by: Dictated on workstation # [id number]
--- NOTE | 2022-06-19 09:24 | Tele-ICU Consult ---
History of Present Illness History of Present Illness Date Seen by Provider: Jun 19, 2022 Time Seen by Provider: 09:23 Date of Admission 06/18/2022 Allergies and Home Medications Allergies Coded Allergies: ibuprofen (Verified Allergy, Mild, RASH FROM LIQUIGELS CAN TAKE PLAIN ADVIL, 12/28/08) cephalexin (Verified Allergy, Unknown, 01/15/21) Anaphylaxis pregabalin (Unverified Allergy, Unknown, 09/21/17) tramadol (Unverified Allergy, Unknown, 09/21/17) Home Medications Loratadine 10 Mg Tablet, 10 MG PO BID Prescribed by: ESTHER SIMMS on 01/14/21 1234 Prednisone 10 Mg Tab.ds.pk, 10 MG PO BID Prescribed by: ESTHER SIMMS on 01/14/21 1234 Past Medical/Social/Family Hx Patient Social History Tobacco Use?: Yes Tobacco type used: Cigarettes Smoking Status: Heavy Tobacco Smoker Smokeless Tobacco Frequency: Current Everyday User, Heavy User Use of E-Cig and/or Vaping dev: No Substance use?: No Alcohol Use?: No Pt stated abuse/neglect: No Immunizations Up To Date Influenza Vaccine Up-to-Date: No; Not Current Tetanus Booster (TDap): Less Than 5 Years Date of Pneumonia Vaccine: May 05, 2011 Current Status status: No status: No Advance Directives: No Communicates: Verbally Primary Language: Belizean Preferred Spoken Language: Belizean Is interpretation needed?: No Implanted or Applied Medical D: None Family Medical History Family Hx: PAST SURGICAL HISTORY: -MULTIPLE BILATERAL CHEST TUBES AND BILATERAL PLEURODESIS FOR MULIPTLE EPISODES OF SPONTANEOUS PNEUMOTHORAX--> 10 TIMES, PER PT -HYSTERECTOMY 12/2008 -APPENDECTOMY 1996 Focused Exam Height, Weight, BMI Height: 5'8.00" Weight: 112lbs. 0oz. 50.623851nf; 15.57 BMI Method:Estimated Exam Exam Patient acknowledged, consented, and participated in this virtual visit which was conducted using real time audio/video Vital Signs Date Time Temp Pulse Resp B/P (MAP) Pulse Ox O2 Delivery O2 Flow Rate FiO2 06/19/22 09:00 58 12 96/76 (83) 100 Nasal Cannula 4.00 06/19/22 08:05 Nasal Cannula 5.00 06/19/22 08:00 64 13 108/66 (80) 99 Nasal Cannula 4.00 06/19/22 07:54 36.4 06/19/22 07:00 65 06/19/22 07:00 56 13 113/76 (88) 99 Nasal Cannula 4.00 06/19/22 06:00 60 20 119/78 (92) 99 Nasal Cannula 5.00 06/19/22 05:30 59 36 112/71 (83) 100 Nasal Cannula 5.00 06/19/22 05:00 46 20 96/64 (86) 91 Nasal Cannula 2.00 06/19/22 04:30 56 29 99/68 (78) 97 Nasal Cannula 2.00 06/19/22 04:23 Nasal Cannula 2.00 06/19/22 04:15 36.4 60 20 107/68 (81) 91 Room Air 06/19/22 04:00 96 Room Air 06/19/22 03:00 61 100/60 (73) 92 Room Air 06/19/22 02:54 93 Room Air 06/19/22 02:00 59 12 96/58 (71) 91 Room Air 06/19/22 01:00 53 11 100/62 (75) 93 Room Air 06/19/22 01:00 53 06/19/22 00:00 62 20 98/70 (92) 95 Room Air 06/19/22 00:00 36.6 06/18/22 23:45 60 7 94/80 (89) 94 Room Air 06/18/22 23:40 36.8 61 95 21 06/18/22 23:30 55 8 97/64 (73) 93 Room Air 06/18/22 23:15 54 12 97/68 (87) 94 Room Air 06/18/22 23:00 71 12 101/67 (84) 94 Room Air 06/18/22 22:50 98 Room Air 06/18/22 22:50 36.6 71 18 110/75 (87) 94 Room Air 06/18/22 22:43 62 06/18/22 22:30 36.8 61 20 106/70 98 Room Air 06/18/22 20:45 36.8 85 24 128/90 (103) 98 Room Air I & O 06/19/22 07:00 Intake Total 30 ml Output Total 600 ml Balance -570 ml Height & Weight Height: 5'8.00" Weight: 112lbs. 0oz. 50.577323qd; 15.57 BMI Method:Estimated Capillary Refill: Less Than 3 Seconds Gastrointestinal: non tender, soft Results Lab Laboratory Tests 06/18/22 19:48 06/19/22 04:30 KEISHA JONAS MD Jun 19, 2022 09:24
[2022-06-19] MEDS ORDERED: CALCIUM CARBONATE 500 MG (TUMS) TAB.CHEW PO PRN (10:00)
[2022-06-19] MEDS ORDERED: LACTULOSE SYRUP 10GM/15ML (ENULOSE) 30ML UDC PO PRN (10:00)
[2022-06-19] MEDS ORDERED: ALPRAZolam 0.25 MG (XANAX) TAB PO PRN (10:00)
[2022-06-19] MEDS ORDERED: MELATONIN 3 MG TABLET PO PRN (10:00)
[2022-06-19] MEDS ORDERED: DOCUSATE SODIUM 100 MG (COLACE) CAP PO PRN (10:00)
[2022-06-19] MEDS ORDERED: diphenhydrAMINE 25 MG TAB (BENADRYL) PO PRN (10:00)
[2022-06-19] MEDS ORDERED: ONDANSETRON 4 MG (ZOFRAN) ORAL DISSOLVE TAB PO PRN (10:00)
[2022-06-19] MEDS ORDERED: BISACODYL 10 MG SUPP (DULCOLAX) PR PRN (10:00)
[2022-06-19] MEDS ORDERED: ACETAMINOPHEN 325 MG TABLET PO PRN (10:00)
[2022-06-19] MEDS ORDERED: ONDANSETRON 4 MG/2 ML (SDV) Z0FRAN IVP PRN (10:00)
[2022-06-19] MEDS ORDERED: LOPERAMIDE 2 MG (IMODIUM) TABLET PO PRN (10:00)
[2022-06-19] MEDS ORDERED: MENTHOL/ZINC OXIDE (CALMOSEPTINE) 113 GM TUBE TP PRN (10:00)
[2022-06-19] MEDS: ENOXAPARIN INJECTION 30 MG/0.3 ML SYR SC SCH ×2 (10:35→10:38)
[2022-06-19] MEDS ORDERED: IBUP-2473 PO (10:52)
[2022-06-19] MEDS ORDERED: BUPR1FIL3 SL (10:52)
[2022-06-19] MEDS ORDERED: ESTR1TAB27 PO (10:54)
--- NOTE | 2022-06-19 11:03 | History & Physical-Hospitalist ---
KATE ROSA 06/19/22 1103: History of Present Illness HPI/Chief Complaint Patient is a 41 year old woman who presented to the ER with sudden-onset, sharp, right-sided chest pain and shortness of breath. She has a history of multiple collapsed lungs status post pleurodesis. Two previous pleurodesis procedures with the last one occurring around 10 years ago. Initial chest radiography showed stable chronic lung disease; however, chest CT revealed increased size of a right pneumothorax of around 20% that was previously evaluated in 2013. No tension or pleural fluid were noted in the imaging studies. The patient takes suboxone at home and was given dilaudid and toradol in the emergency department with good pain control. She was then transferred to the ICU for further treatment. She has a 25 pack-year smoking history. This morning she notes cont inued cough, SOB, right-sided chest pain that she rates as a 5/10, and intermittent palpitations. Denies nausea, vomiting, abdominal pain, constipation, diarrhea, headache, vision changes, or urinary symptoms. She does not use oxygen at home. Source: patient, RN/MD, old records Exam Limitations: no limitations Date Seen 06/19/22 Time Seen by a Provider: 08:00 Attending Physician Melissa Mcintyre MD PCP Admitting Physician: Ellyn Simms DO Attending Physician: Ellyn Simms DO Referring Physician Date of Admission Jun 18, 2022 at 21:27 Home Medications & Allergies Home Medications Reviewed patient Home Medication Reconciliation performed by pharmacy medication reconciliations microfilm technician and/or nursing. Patients Allergies have been reviewed. Allergies Allergies Coded Allergies ibuprofen (Verified Allergy, Mild, RASH FROM LIQUIGELS CAN TAKE PLAIN ADVIL, 12/28/08) cephalexin (Verified Allergy, Unknown, 01/15/21) Anaphylaxis pregabalin (Unverified Allergy, Unknown, 09/21/17) tramadol (Unverified Allergy, Unknown, 09/21/17) Past Ouybmfx-Idspoh-Tjskqn Hx Patient Social History Employed/Student: employed Tobacco Use?: Yes Tobacco type used: Cigarettes Smoking Status: Heavy Tobacco Smoker (1 ppd, 25 pack-year history) Smokeless Tobacco Frequency: Current Everyday User, Heavy User Use of E-Cig and/or Vaping dev: No Substance use?: No Alcohol Use?: No Pt feels they are or have been: No Immunizations Up To Date Date of Influenza Vaccine: Oct 06, 2011 Tetanus Booster (TDap): Less Than 5 Years Date of Pneumonia Vaccine: May 05, 2011 Seasonal Allergies Seasonal Allergies: No Current Status status: No status: No Advance Directives: No Communicates: Verbally Primary Language: Chinese Preferred Spoken Language: Chinese Is interpretation needed?: No Implanted or Applied Medical D: None Past Medical History Surgeries: Appendectomy, Hysterectomy Emphysema [employer]OP[employer] CHIEF History: Hysterectomy Loss of Vision: Denies Hearing Impairment: Denies Sleep Difficulties Blood Disorders: No Family Medical History No Pertinent Family Hx PAST SURGICAL HISTORY: -MULTIPLE BILATERAL CHEST TUBES AND BILATERAL PLEURODESIS FOR MULIPTLE EPISODES OF SPONTANEOUS PNEUMOTHORAX--> 10 TIMES, PER PT -HYSTERECTOMY 12/2008 -APPENDECTOMY 1996 Review of Systems Constitutional: see HPI; No chills EENTM: see HPI, no symptoms reported; No blurred vision, No vision loss Respiratory: see HPI, cough, dyspnea on exertion, short of breath Cardiovascular: see HPI, chest pain, palpitations (Intermittent); No syncope Gastrointestinal: no symptoms reported, see HPI; No abdominal pain, No constipation, No diarrhea, No nausea, No vomiting Genitourinary: no symptoms reported; No decreased output, No dysuria, No frequency, No hematuria, No incontinence Musculoskeletal: no symptoms reported Skin: no symptoms reported Psychiatric/Neurological: No Symptoms Reported Physical Exam Physical Exam Vital Signs Vital Signs - First Documented 06/18/22 06/18/22 06/19/22 20:45 23:40 04:23 Temp 36.8 Pulse 85 Resp 24 B/P (MAP) 128/90 (103) Pulse Ox 98 O2 Delivery Room Air O2 Flow Rate 2.00 FiO2 21 Capillary Refill : Less Than 3 Seconds Height, Weight, BMI Height: 5'8.00" Weight: 112lbs. 0oz. 50.999189qm; 15.57 BMI Method:Estimated General Appearance: WD/WN, Chronically ill, Mild Distress, Thin HEENT: PERRL/EOMI, Normal ENT Inspection Neck: Full Range of Motion, Normal Inspection, Non Tender, Supple; No Carotid Bruit, No JVD Respiratory: Chest Non Tender, No Accessory Muscle Use, No Respiratory Distress, Decreased Breath Sounds (Decreased breath sounds on the right, severely decreased in right middle lobe.) Cardiovascular: Regular Rate, Rhythm, No Murmur, Normal Peripheral Pulses Gastrointestinal: Normal Bowel Sounds, No Organomegaly, Non Tender, Soft Back: Normal Inspection Extremity: Normal Inspection, Non Tender Neurologic/Psychiatric: Alert, Oriented x3, No Motor/Sensory Deficits, Normal Mood/Affect Skin: Normal Color, Warm/Dry Lymphatic: No Adenopathy Results Results/Procedures Labs Laboratory Tests 06/18/22 19:48 06/19/22 04:30 Patient resulted labs reviewed. Imaging Date of Exam:06/19/22 CHEST 1 VIEW, AP/PA ONLY INDICATION: Pneumothorax. TECHNIQUE: Single view chest 6:26 AM. CORRELATION STUDY: 06/18/2022 FINDINGS: The heart size, mediastinal configuration and pulmonary vascularity are within normal limits. Hyperinflated lung english with prominent interstitial markings. Biapical fibroemphysematous type change is again demonstrated. Suture line to the lung apices again demonstrated. Biapical pleural thickening. IMPRESSION: 1. Generally stable, chronic appearing lung disease. Rather advanced bullous and fibrous type change about the bilateral lung apices, right greater than left. Dictated by: Dictated on workstation # [id number] Dict: 06/19/22 0754 Trans: 06/19/22 1015 [facility] [id number] Interpreted by: MADELINE PISANO DO Electronically signed by: MADELINE PISANO DO 06/19/22 1015 Date of Exam:06/18/22 CT CHEST W PROCEDURE: CT chest with contrast only. TECHNIQUE: Multiple contiguous axial images were obtained through the chest after administration of intravenous contrast. Auto Exposure Controls were utilized during the CT exam to meet ALARA standards for radiation dose reduction. INDICATION: Cough. COMPARED with chest CT from December 2012 and correlated with multiple previous chest radiographs. FINDINGS: When compared to the prior more remote CT, there is progressive severe bullous fibroemphysematous lung disease and mild progression of right pneumothorax having increased at the subpulmonic base where there is no evidence of tension. There are multiple areas of tacked down thickened pleura with the visceral and parietal pleura adherent and no evidence for associated tension. The pneumothorax is probably around 20-25% today, previously around 10%. There is no evidence of tension. There are multiple peripheral pulmonary cysts at the apical greater than basilar portions of the lungs, chronic but mildly increased. Some curvilinear areas of pleural parenchymal calcification showed mild progression. No pleural fluid. No depression of the diaphragms. No cardiomediastinal displacement. The atherosclerotic aorta is nonaneurysmal. There is some low-density frothy debris, likely mucus within the trachea. No bronchiectasis. No acute chest wall pathology. The visualized upper abdomen showing chronic calcifications at the level of the pancreatic head without visualized acute fluid collection or acute pancreatitis. IMPRESSION: Since 2012, there has been progressive fibroemphysematous lung disease with mild increased size of a previously demonstrated right pneumothorax of around 20% without tension or pleural fluid. Nonacute aorta. No central PE identified. No chest wall fracture. Peripheral air cyst and bullous disease noted, mildly increased. No adenopathy. Results discussed with the Emergency Room physician Dictated by: Dictated on workstation # [id number] Dict: 06/18/222117 Trans: 06/18/222156 [facility] [id number] Interpreted by: MANISH VALDES Electronically signed by: MANISH VALDES 06/18/222156 Date of Exam:06/18/22 CHEST 1 VIEW, AP/PA ONLY INDICATION: Dyspnea COMPARISON: 01/13/2021 FINDINGS: Chronic fibroemphysematous changes in the lungs present with symmetrical air trapping, stable. No new pulmonary parenchymal pathology. The heart size and vascularity stable. IMPRESSION: Stable chronic lung disease. Dictated by: Dictated on workstation # [id number] Dict: 06/18/222053 Trans: 06/18/222156 [facility] [id number] Interpreted by: MANISH VALDES Electronically signed by: MANISH VALDES 06/18/222156 Meds Patient started on TMP/SMX for UTI, 9 doses ordered. Albuterol sulfate. Hydromorphone for pain. Patient refused enoxaparin. All other medications noted in med list. Assessment/Plan Admission Diagnosis Right lung pneumothorax Admission Status: Inpatient Order (span 2 midnights) Reason for Inpatient Admission: Admission may be necessary to ensure patient safety during treatment course. Spontaneous pneumothorax requiring oxygen therapy and possible surgical intervention. Assessment and Plan Right lung pneumothorax - Patient currently on 4 L of oxygen via nasal canula. Albuterol sulfate administered to improve breathing. Condition to be closely monitored for signs of respiratory distress or progression. Patient may need thoracostomy. Chest pain - fairly well controlled on dilaudid UTI - TMP/SMX, 9 doses ordered. Will follow infectious course for improvement or progression. History of multiple collapsed lungs History of multiple pleurodesis Heavy tobacco use - 1ppd smoking status is undoubtedly worsening her condition and overall respiratory health. Advise smoking cessation with possible pharmacological adjunct. ELLYN SIMMS DO 06/20/22 0530: History of Present Illness Source: patient, family, RN/MD, old records Exam Limitations: no limitations Past Sooingu-Unpdow-Vvqzlf Hx Patient Social History Marrital Status: single Employed/Student: employed Smoking Status: Heavy Tobacco Smoker (1 ppd, 25 pack-year history) Review of Systems Constitutional: see HPI Respiratory: dyspnea on exertion, short of breath Cardiovascular: chest pain Physical Exam Physical Exam General Appearance: Anxious, Chronically ill, Thin Respiratory: Normal Breath Sounds, Decreased Breath Sounds (Decreased breath sounds on the right, severely decreased in right middle lobe.) Cardiovascular: Regular Rate, Rhythm, No Edema, No Gallop, No JVD, No Murmur, Normal Peripheral Pulses Assessment/Plan Admission Diagnosis Right lung pneumothorax History of bilateral pleurodeses Heavy cigarette smoker Plan: Supportive care Pain control Admission Status: Inpatient Order (span 2 midnights) Reason for Inpatient Admission: Pneumothorax Supervisory-Addendum Brief Verification & Attestation Participated in pt care: history, MDM, physical Personally performed: exam, history, MDM, supervision of care Care discussed with: Medical Student Procedures: n/a Results interpretation: Verified all documentation Verification and Attestation of Medical Student E/M Service A medical student performed and documented this service in my presence. I reviewed and verified all information documented by the medical student and made modifications to such information, when appropriate. I personally performed the physical exam and medical decision making. Ellyn Simms, Jun 20, 2022,05:29 KATE ROSA Jun 19, 2022 11:03 ELLYN SIMMS DO Jun 20, 2022 05:30
[2022-06-19] MEDS: KETOROLAC 15 MG/ML VIAL IV PRN ×2 (13:35→17:16)
[2022-06-19 15:57] VITALS: BP 114/67
[2022-06-19 19:16] VITALS: BP 110/58
[2022-06-19] MEDS: SENNA W/DOCUSATE (SENOKOT S) TABLET PO SCH (20:11)
[2022-06-19] MEDS: polyethylene glycoL POWDER 17 GM (MIRALAX) PACK PO SCH (20:11)
[2022-06-19 23:10] VITALS: BP 108/56
[2022-06-20] MEDS: KETOROLAC 15 MG/ML VIAL IV PRN ×2 (01:22→10:22)
[2022-06-20] MEDS: RT-ALBUTEROL SULF 2.5 MG/3 ML PRE-MIX VIAL INH SCH ×2 (02:13→07:57)
[2022-06-20 03:07] VITALS: BP 102/57
[2022-06-20 05:32] LABS: BASOPHILS % (AUTO) 1 % (0-10); EOSINOPHILS # (AUTO) 0.1 10^3/uL (0.0-0.3); EOSINOPHILS % (AUTO) 2 % (0-10); HEMATOCRIT 35 % (35-52); HEMOGLOBIN 11.6 g/dL (11.5-16.0); LYMPHOCYTES # (AUTO) 1.6 10^3/uL (1.0-4.0); LYMPHOCYTES % (AUTO) 31 % (12-44); MEAN CORPUSCULAR HEMOGLOBIN 30 pg (25-34); MEAN CORPUSCULAR HGB CONC 33 g/dL (32-36); MEAN CORPUSCULAR VOLUME 91 fL (80-99); MEAN PLATELET VOLUME 10.5 fL (9.0-12.2); MONOCYTES # (AUTO) 0.4 10^3/uL (0.0-1.0); MONOCYTES % (AUTO) 9 % (0-12); NEUTROPHILS % (AUTO) 58 % (42-75); PLATELET COUNT 161 10^3/uL (130-400); WHITE BLOOD COUNT 5.1 10^3/uL (4.3-11.0)
[2022-06-20 05:58] LABS: ALBUMIN 3.8 GM/DL (3.2-4.5); BILIRUBIN,TOTAL 0.3 MG/DL (0.1-1.0); CREATININE SERUM 0.86 MG/DL (0.60-1.30); MAGNESIUM 1.8 MG/DL (1.6-2.4); POTASSIUM 4.2 MMOL/L (3.6-5.0); TOTAL PROTEIN 6.3 GM/DL (6.4-8.2)
--- NOTE | 2022-06-20 06:49 | Progress Note - Surgery ---
[facility] 06/20/22 0649: Subjective Date Seen by a Provider: Jun 20, 2022 Time Seen by a Provider: 06:42 Subjective/Events-last exam Today pt reports she has minimal soreness over the right upper chest and flank. Denies SOB, CP, urinary issues, nausea/vomiting. Down to using 2L O2 via nasal cannula. Repeat CXR was obtained this morning. Review of Systems General: No Chills, No Night Sweats HEENT: No Head Aches, No Visual Changes Pulmonary: No Dyspnea, No Cough Cardiovascular: No: Palpitations, Edema Gastrointestinal: No: Nausea, Vomiting Genitourinary: No Dysuria, No Frequency Musculoskeletal: other (soreness of right upper chest radiating to right flank) Neurological: No: Weakness, Numbness Objective Exam Vital Signs Date Time Temp Pulse Resp B/P (MAP) Pulse Ox O2 Delivery O2 Flow Rate FiO2 06/20/22 03:07 36.5 77 18 102/57 (72) 98 Nasal Cannula 2.00 06/20/22 02:16 98 Nasal Cannula 2.00 06/19/22 23:10 36.8 73 18 108/56 (73) 99 Nasal Cannula 2.00 06/19/22 21:14 100 Nasal Cannula 3.00 06/19/22 20:12 Nasal Cannula 3.00 06/19/22 19:16 37.0 72 19 110/58 (75) 100 Nasal Cannula 5.00 06/19/22 15:57 37.0 64 18 114/67 (83) Nasal Cannula 5.00 06/19/22 15:06 100 Nasal Cannula 4.00 06/19/22 14:41 36.4 67 18 115/68 (84) 100 Nasal Cannula 5.00 06/19/22 13:30 72 18 94/68 (77) 99 Nasal Cannula 5.00 06/19/22 12:00 36.9 06/19/22 12:00 61 22 100 Nasal Cannula 5.00 06/19/22 11:00 68 20 101/63 (76) 98 Nasal Cannula 4.00 06/19/22 10:00 75 13 104/62 (76) 97 Nasal Cannula 4.00 06/19/22 09:00 58 12 96/76 (83) 100 Nasal Cannula 4.00 06/19/22 08:05 Nasal Cannula 5.00 06/19/22 08:00 64 13 108/66 (80) 99 Nasal Cannula 4.00 06/19/22 07:54 36.4 06/19/22 07:20 98 Nasal Cannula 4.00 06/19/22 07:00 65 06/19/22 07:00 56 13 113/76 (88) 99 Nasal Cannula 4.00 I & O 06/20/22 07:00 Intake Total 2250 ml Output Total 4200 ml Balance -1950 ml Capillary Refill : Less Than 3 Seconds General Appearance: Chronically ill, Thin HEENT: PERRL/EOMI, Normal ENT Inspection Neck: Full Range of Motion, Normal Inspection, Non Tender, Supple Respiratory: Chest Non Tender, No Accessory Muscle Use, No Respiratory Distress Cardiovascular: No Edema, No JVD, Normal Peripheral Pulses Peripheral Pulses: 2+ Radial Pulses (R), 2+ Radial Pulses (L) Gastrointestinal: non tender, soft Extremity: Normal Inspection, Non Tender Neurologic/Psychiatric: Alert, Oriented x3 Skin: Normal Color, Warm/Dry Lymphatic: No Adenopathy Results Lab Laboratory Tests 06/20/22 05:28: White Blood Count 5.1, Red Blood Count 3.84, Hemoglobin 11.6, Hematocrit 35, Mean Corpuscular Volume 91, Mean Corpuscular Hemoglobin 30, Mean Corpuscular Hemoglobin Concent 33, Red Cell Distribution Width 11.7, Platelet Count 161, Mean Platelet Volume 10.5, Immature Granulocyte % (Auto) 0, Neutrophils (%) (Auto) 58, Lymphocytes (%) (Auto) 31, Monocytes (%) (Auto) 9, Eosinophils (%) (Auto) 2, Basophils (%) (Auto) 1, Neutrophils # (Auto) 3.0, Lymphocytes # (Auto) 1.6, Monocytes # (Auto) 0.4, Eosinophils # (Auto) 0.1, Basophils # (Auto) 0.0, Immature Granulocyte # (Auto) 0.0, Sodium Level 140, Potassium Level 4.2, Chloride Level 106, Carbon Dioxide Level 25, Anion Gap 9, Blood Urea Nitrogen 6L , Creatinine 0.86, Estimat Glomerular Filtration Rate 88, BUN/Creatinine Ratio 7, Glucose Level 99, Calcium Level 9.0, Corrected Calcium 9.2, Magnesium Level 1.8, Total Bilirubin 0.3, Aspartate Amino Transf (AST/SGOT) 13, Alanine Aminotransferase (ALT/SGPT) 7, Alkaline Phosphatase 51, Total Protein 6.3L, Albumin 3.8 Microbiology 06/18/22 MRSA Screen - Preliminary, Resulted No growth 06/18/22 Urine Culture - Preliminary, Resulted Escherichia coli Assessment/Plan Assessment/Plan Assessment/Plan right pneumothorax hx multiple spontaneous pneumothoraces history of multiple chest tubes and b/l pleurodeses right chest pain- improved current heavy smoker chest CT with progressive fibroemphysematous lung disease with mild increased size of a previously demonstrated right pneumothorax of around 20% repeat CXR emphysematous disease O2 via nasal cannula pain control-continue monitor O2 sats repeat chest x ray this am, if no pneumothorax on chest xray likely could go home DEMARIO PRATT DO 06/20/22 1706: Subjective Subjective/Events-last exam Pain improved. Breathing without much difficulty. No shortness of breath. Chest x ray showing no pneumothorax. Patient wanting to go home. Objective Exam General Appearance: No Apparent Distress, Chronically ill, Thin HEENT: PERRL/EOMI, Normal ENT Inspection Neck: Normal Inspection, Supple Respiratory: Chest Non Tender, No Accessory Muscle Use, No Respiratory Distress Cardiovascular: Regular Rate, Rhythm, No JVD Gastrointestinal: non tender, soft Extremity: Normal Inspection, Non Tender Neurologic/Psychiatric: Alert, Oriented x3, Normal Mood/Affect Skin: Normal Color, Warm/Dry Lymphatic: No Adenopathy Assessment/Plan Assessment/Plan Assessment/Plan right pneumothorax hx multiple spontaneous pneumothoraces history of multiple chest tubes and b/l pleurodeses right chest pain- improved current heavy smoker chest CT with progressive fibroemphysematous lung disease with mild increased size of a previously demonstrated right pneumothorax of around 20% repeat CXR emphysematous disease wean o2 repeat chest x ray this am, no pneumothorax and wanting to go home, likely okay to dc home today. Discussed smoking cessation. Supervisory-Addendum Brief Verification & Attestation Participated in pt care: history, MDM, physical Personally performed: exam, history, MDM, supervision of care Care discussed with: Medical Student Procedures: n/a Results interpretation: Verified all documentation Verification and Attestation of Medical Student E/M Service A medical student performed and documented this service in my presence. I reviewed and verified all information documented by the medical student and made modifications to such information, when appropriate. I personally performed the physical exam and medical decision making. Demario Pratt, Jun 20, 2022,17:06 ANSON HOLM Jun 20, 2022 06:49 DEMARIO PRATT DO Jun 20, 2022 17:06
[2022-06-20] MEDS: TRIM/SULFAMETH 160/800 (SEPTRA DS) TAB PO SCH (07:32)
[2022-06-20] MEDS: polyethylene glycoL POWDER 17 GM (MIRALAX) PACK PO SCH (07:33)
[2022-06-20] MEDS: SENNA W/DOCUSATE (SENOKOT S) TABLET PO SCH (07:33)
[2022-06-20 07:39] VITALS: BP 100/63
--- NOTE | 2022-06-20 09:03 | Diagnostic Imaging Report ---
INDICATION: Pneumonia Frontal chest obtained at 6:31 a.m. and compared to yesterday. Hyperinflation again noted. The heart is normal in size. Mediastinal silhouette is otherwise unremarkable there are surgical sutures in the apical region on both sides. There is underlying COPD changes and no change in patchy bilateral infiltrates compared to the prior study. There is no significant pleural fluid or pneumothorax. IMPRESSION: Underlying emphysematous changes with stable patchy bilateral infiltrates compared to the prior study. No pneumothorax or gross pleural fluid. Dictated by: Dictated on workstation # [id number]
[2022-06-20] MEDS: ENOXAPARIN INJECTION 30 MG/0.3 ML SYR SC SCH (10:13)
[2022-06-20 11:13] VITALS: BP 110/62
--- NOTE | 2022-06-20 12:23 | Progress Note - Hospitalist ---
KATE ROSA 06/20/22 1223: Subjective HPI/CC On Admission Date Seen by Provider: Jun 20, 2022 Time Seen by Provider: 08:45 Subjective/Events-last exam Patient is a 41 year old woman who presented to the ER with sudden-onset, sharp, right-sided chest pain and shortness of breath. She has a history of multiple collapsed lungs status post pleurodesis. Two previous pleurodesis procedures with the last one occurring around 10 years ago. Initial chest radiography showed stable chronic lung disease; however, chest CT revealed increased size of a right pneumothorax of around 20% that was previously evaluated in 2013. No tension or pleural fluid were noted in the imaging studies. The patient takes suboxone at home and was given dilaudid and toradol in the emergency department with good pain control. She was then transferred to the ICU for further treatment and has now been moved to the fourth floor after significant improvement in her symptoms. She has a 25 pack-year smoking history. This morning, she states that her breathing is much better but she remains fatigued. Says that her chest pain is about the same as it has been. Denies SOB, chills, palpitations. Notes minor nausea that she believes is from not eating. No new symptoms or concerns this morning. Review of Systems General: No Chills; Fatigue; No Malaise HEENT: No Head Aches Pulmonary: No Dyspnea, No Cough Cardiovascular: Chest Pain (Corresponds with deep inhalation); No: Palpitations, Lt Headedness Gastrointestinal: Nausea; No: Vomiting, Abdominal Pain, Diarrhea, Constipation Neurological: No: Weakness, Change in speech, Confusion Focused Exam Sepsis Stage: Ruled Out Reason for ruling out sepsis: Patient does not meet SIRS criteria needed for sepsis diagnosis Objective Exam Vital Signs Vital Signs Date Time Temp Pulse Resp B/P (MAP) Pulse Ox O2 Delivery O2 Flow Rate FiO2 06/20/22 11:13 36.8 68 18 110/62 (78) 99 Nasal Cannula 0.50 06/18/22 23:40 21 Capillary Refill : Less Than 3 Seconds General Appearance: No Apparent Distress, WD/WN, Chronically ill, Thin HEENT: PERRL/EOMI, Normal ENT Inspection Neck: Full Range of Motion, Normal Inspection, Non Tender, Supple; No Carotid Bruit, No JVD Respiratory: Chest Non Tender, No Accessory Muscle Use, No Respiratory Distress, Decreased Breath Sounds (Decreased but present lung sounds throughout the right lung); No Wheezing Cardiovascular: Regular Rate, Rhythm, No Edema, No Gallop, No JVD, No Murmur, Normal Peripheral Pulses Gastrointestinal: Non Tender, Soft Rectal: Deferred Back: Normal Inspection Extremity: Normal Capillary Refill, Normal Inspection, Non Tender Neurologic/Psychiatric: Alert, Oriented x3, No Motor/Sensory Deficits, Normal Mood/Affect Skin: Normal Color, Warm/Dry Lymphatic: No Adenopathy Results/Procedures Lab Laboratory Tests 06/20/22 05:28 Patient resulted labs reviewed. Radiology Date of Exam:06/20/22 CHEST 1 VIEW, AP/PA ONLY INDICATION: Pneumonia Frontal chest obtained at 6:31 a.m. and compared to yesterday. Hyperinflation again noted. The heart is normal in size. Mediastinal silhouette is otherwise unremarkable there are surgical sutures in the apical region on both sides. There is underlying COPD changes and no change in patchy bilateral infiltrates compared to the prior study. There is no significant pleural fluid or pneumothorax. IMPRESSION: Underlying emphysematous changes with stable patchy bilateral infiltrates compared to the prior study. No pneumothorax or gross pleural fluid. Dictated on workstation # [id number] Dict: 06/20/22821 Trans: 06/20/22 0903 [facility] [id number] Interpreted by: MENA LANDEROS MD Imaging report was a draft at the time of exam and may have been edited since then. Meds Patient prescribed levofloxacin for discharge antibiotic therapy. TMP/SMX discontinued. Also taking albuterol, ketorolac, hydromorphone. Assessment/Plan Assessment and Plan Assess & Plan/Chief Complaint Right lung pneumothorax - Patient currently on 0.5 L of oxygen via nasal canula with O2 of 99. Albuterol sulfate administered to improve breathing. Condition to be closely monitored for signs of respiratory distress or progression. Breathing is greatly improved from yesterday. Lung sounds are present but decreased throughout the right lung. Chest pain - fairly well controlled on dilaudid UTI - TMP/SMX discontinued. Will follow infectious course for improvement or progression. Patient is allergic to amoxicillin so is to be prescribed levaquin on discharge for further antibiotic treatment. History of multiple collapsed lungs History of multiple pleurodesis Heavy tobacco use - 1ppd smoking status is undoubtedly worsening her condition and overall respiratory health. Advise smoking cessation with possible pharmacological adjunct. ELLYN SIMMS DO 06/21/22 0553: Supervisory-Addendum Brief Verification & Attestation Participated in pt care: history, MDM, physical Personally performed: exam, history, MDM, supervision of care Care discussed with: Medical Student Procedures: n/a Results interpretation: Verified all documentation Verification and Attestation of Medical Student E/M Service A medical student performed and documented this service in my presence. I reviewed and verified all information documented by the medical student and made modifications to such information, when appropriate. I personally performed the physical exam and medical decision making. Ellyn Simms, Jun 21, 2022,05:53 KATE ROSA Jun 20, 2022 12:23 ELLYN SIMMS DO Jun 21, 2022 05:53
[2022-06-20] MEDS ORDERED: AMOXICILLIN 500 MG (POLYMOX) CAP PO SCH (13:00)
[2022-06-20] MEDS ORDERED: LEVO-55 PO (13:42)
--- NOTE | 2022-06-20 13:43 | Discharge Summary ---
Discharge Summary Hospital Course Was the Problem List Reviewed?: Yes Problems/Dx: (1) Pneumothorax Status: Acute (2) UTI (urinary tract infection) Hospital Course Date of Admission: Jun 18, 2022 at 21:27 Admission Diagnosis : Family Physician/Provider: Melissa Mcintyre MD Date of Discharge: 06/20/22 Discharge Diagnosis: [ ] Hospital Course: Patient is a 41 year old woman who presented to the ER with sudden-onset, sharp, right-sided chest pain and shortness of breath. She has a history of multiple collapsed lungs status post pleurodesis. Two previous pleurodesis procedures with the last one occurring around 10 years ago. Initial chest radiography showed stable chronic lung disease; however, chest CT revealed increased size of a right pneumothorax of around 20% that was previously evaluated in 2012. No tension or pleural fluid were noted in the imaging studies. The patient takes suboxone at home and was given dilaudid and toradol in the emergency department with good pain control. She was then transferred to the ICU for further treatment and has now been moved to the fourth floor after significant improvement in her symptoms. She has a 25 pack-year smoking history. This morning, she states that her breathing is much better but she remains fatigued. Says that her chest pain is about the same as it has been. Denies SOB, chills, palpitations. Notes minor nausea that she believes is from not eating. No new symptoms or concerns this morning. Labs and Pending Lab Test: Laboratory Tests 06/20/22 05:28: White Blood Count 5.1, Red Blood Count 3.84, Hemoglobin 11.6, Hematocrit 35, Mean Corpuscular Volume 91, Mean Corpuscular Hemoglobin 30, Mean Corpuscular Hemoglobin Concent 33, Red Cell Distribution Width 11.7, Platelet Count 161, Mean Platelet Volume 10.5, Immature Granulocyte % (Auto) 0, Neutrophils (%) (Auto) 58, Lymphocytes (%) (Auto) 31, Monocytes (%) (Auto) 9, Eosinophils (%) (Auto) 2, Basophils (%) (Auto) 1, Neutrophils # (Auto) 3.0, Lymphocytes # (Auto) 1.6, Monocytes # (Auto) 0.4, Eosinophils # (Auto) 0.1, Basophils # (Auto) 0.0, Immature Granulocyte # (Auto) 0.0, Sodium Level 140, Potassium Level 4.2, Chloride Level 106, Carbon Dioxide Level 25, Anion Gap 9, Blood Urea Nitrogen 6L , Creatinine 0.86, Estimat Glomerular Filtration Rate 88, BUN/Creatinine Ratio 7, Glucose Level 99, Calcium Level 9.0, Corrected Calcium 9.2, Magnesium Level 1.8, Total Bilirubin 0.3, Aspartate Amino Transf (AST/SGOT) 13, Alanine Aminotransferase (ALT/SGPT) 7, Alkaline Phosphatase 51, Total Protein 6.3L, Alb umin 3.8 Microbiology 06/18/22 MRSA Screen - Final, Complete MRSA not isolated 06/18/22 Urine Culture - Final, Complete Escherichia coli Home Meds Active Reported Estrace Tablet (Estradiol) 1 Mg Tablet 1 Mg PO DAILY Ibuprofen 200 Mg Tablet 400 Mg PO Q6H PRN Suboxone 8 mg-2 mg Sl Film (Buprenorphine HCl/Naloxone HCl) 8 Mg-2 Mg Film 2 Each SL DAILY Assessment/Pt Instructions PCP in 1 week Discharge Planning: <30 minutes discharge planning Discharge Instructions Discharge Diet: No Restrictions Discharge Physical Examination Vital Signs Vital Signs Date Time Temp Pulse Resp B/P (MAP) Pulse Ox O2 Delivery O2 Flow Rate FiO2 06/20/22 11:13 36.8 68 18 110/62 (78) 99 Nasal Cannula 0.50 06/18/22 23:40 21 Allergies: Coded Allergies: amoxicillin (Verified Allergy, Severe, Anaphylaxis, 06/20/22) cephalexin (Verified Allergy, Severe, ANAPHYLAXIS, 06/20/22) Anaphylaxis ibuprofen (Verified Allergy, Mild, RASH FROM LIQUIGELS CAN TAKE PLAIN ADVIL, 12/28/08) pregabalin (Unverified Allergy, Unknown, 09/21/17) tramadol (Unverified Allergy, Unknown, 09/21/17) Discharge Summary Date of Admission Jun 18, 2022 at 21:27 Date of Discharge Discharge Date: Jun 20, 2022 Admission Diagnosis Right lung pneumothorax History of bilateral pleurodeses Heavy cigarette smoker Plan: Supportive care Pain control ESTHER SIMMS DO Jun 20, 2022 13:43
== END 2022-06-20 15:15 | disposition home or self-care (01) ==
LOC: EDUNIT# 20:41 → ER 20:43 → ICU 21:27 → UNDOADMOB 21:27 → ICU 22:38 → 4TH 06-19 14:23 → UNDODISOB 06-20 15:15
PROVIDERS: ADMIT Internal Medicine; ATTEND Internal Medicine
DX: J93.9 Pneumothorax, unspecified (principal); F17.210 Nicotine dependence, cigarettes, uncomplicated; N39.0 Urinary tract infection, site not specified; Z87.09 Personal history of other diseases of the respiratory system
CPT/HCPCS: 71045 ×3; 71260; 80053 ×3; 81000; 83735 ×2; 84100; 85025 ×3; 85610; 85730; 87077; 87081; 87088; 87186; 93005; 93041; 94640 ×2; 94760; 96361; 96375; 96376 ×3; 99284; G0378 ×2; 36415

== ENCOUNTER 2022-09-29 12:41 | Emergency (ER) | payer SELFPAY ==
[~2022-09-29] VITALS: Ht 170 cm; Wt 43.9 kg
[~2022-09-29 12:41] MED LIST changes: +BUPR1FIL3 SL; +ESTR1TAB27 PO; +IBUP-2473 PO; +LEVO-55 PO
--- NOTE | 2022-09-29 13:23 | ED Respiratory ---
General Chief Complaint: Respiratory Problems Stated Complaint: LUNG ISSUES Nursing Triage Note: PT REPORTS FOR CONCERNS OF POSSIBLE RIGHT LUNG COLLAPSE. PER PT SHE HAS HX OF THIS. SHE IS NOT IN PAIN BUT FEELS "BUBBLES" ON HER RIGHT UPPER LUNG SINCE 09. PT AND MOM QUIQUE. TO TRIAGE WITHOUT DIFFICULTY. Source: patient Exam Limitations: no limitations History of Present Illness Date Seen by Provider: Sep 29, 2022 Time Seen by Provider: 13:21 Initial Comments Patient is a 42-year-old female with a history of emphysema, pneumothorax who presents ED with right-sided chest pain. She woke up this morning around 9 AM complaining of this pressure on the right side of her chest. This pain is int ermittent seems to be worse with coughing or movement. She states she had a pneumothorax last June. History of pleurodesis. Patient reports similar pain in the past. She does have a history of smoking. No breathing treatments today. No recent travels or surgeries, leg pain. Pain does not radiate to the back. No abdominal pain, vomiting, diarrhea. She does not appear in acute distress. She reports a chronic cough since August. Denies fever, chills, body aches, nasal congestion, shortness of breath. Patient denies diabetes, high cholesterol. Family history of CAD. chronic smoker Allergies and Home Medications Allergies Coded Allergies: amoxicillin (Verified Allergy, Severe, Anaphylaxis, 06/20/22) cephalexin (Verified Allergy, Severe, ANAPHYLAXIS, 06/20/22) Anaphylaxis ibuprofen (Verified Allergy, Mild, RASH FROM LIQUIGELS CAN TAKE PLAIN ADVIL, 12/28/08) pregabalin (Unverified Allergy, Unknown, 09/21/17) tramadol (Unverified Allergy, Unknown, 09/21/17) Patient Home Medication List Home Medication List Reviewed: Yes Buprenorphine HCl/Naloxone HCl (Suboxone 8 mg-2 mg Sl Film) 8 Mg-2 Mg Film, 2 EACH SL DAILY, (Reported) Entered as Reported by: NERISSA WANG on 06/19/22 1052 Estradiol (Estrace Tablet) 1 Mg Tablet, 1 MG PO DAILY, (Reported) Entered as Reported by: NERISSA WANG on 06/19/22 1054 Ibuprofen (Ibuprofen) 200 Mg Tablet, 400 MG PO Q6H PRN for PAIN-MILD (1-4), (Reported) Entered as Reported by: NERISSA WANG on 06/19/22 1052 Levofloxacin (Levofloxacin) 500 Mg Tablet, 500 MG PO DAILY@1100 Prescribed by: ESTHER SIMMS on 06/20/22 1342 Review of Systems Review of Systems Constitutional: No chills, No diaphoresis, No malaise, No weakness EENTM: No hearing loss, No blurred vision, No vision loss, No hoarseness, No mouth pain, No mouth swelling Respiratory: cough; No phlegm, No short of breath, No wheezing Cardiovascular: chest pain Gastrointestinal: No abdominal pain, No diarrhea, No nausea, No vomiting Musculoskeletal: No back pain Skin: No change in color All Other Systems Reviewed Negative Unless Noted: Yes Past Epivmgu-Zgogqa-Ylurqc Hx Patient Social History Tobacco Use?: Yes Tobacco type used: Cigarettes Smoking Status: Current Everyday Smoker Use of E-Cig and/or Vaping dev: No Substance use?: No Alcohol Use?: No Pt feels they are or have been: No Immunizations Up To Date Tetanus Booster (TDap): Unknown Influenza Vaccine Up-to-Date: Yes; Up-to-Date Seasonal Allergies Seasonal Allergies: No Past Medical History Surgery/Hospitalization HX: PMH;LUNG COLLAPSE, ASTHMA, EMPH. SURGERY;APPENDECTOMY, FULL HYST. 2005, THORACOTOMY, BILATERAL LUNG SURGERY. 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6 Pulse 70 Resp 18 B/P (MAP) 120/80 (93) Pulse Ox 98 O2 Delivery Room Air Capillary Refill : Height: 5'8.00" Weight: 112lbs. 0oz. [id number]; 15.00 BMI Method:Estimated General Appearance: WD/WN, no apparent distress Eyes: Bilateral Eye Normal Inspection, Bilateral Eye PERRL, Bilateral Eye EOMI HEENT: PERRL/EOMI, normal ENT inspection, TMs normal, pharynx normal Neck: non-tender, full range of motion, supple, normal inspection Respiratory: chest non-tender, lungs clear, normal breath sounds, no respiratory distress, no accessory muscle use Cardiovascular: regular rate, rhythm, no edema, no gallop, no JVD Gastrointestinal: normal bowel sounds, non tender, soft, no organomegaly Extremities: normal range of motion, non-tender, normal inspection, no pedal edema Neurologic/Psychiatric: 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 II-XII nml as tested, no motor/sensory deficits, alert, normal mood/affect, oriented x 3 Skin: normal color, warm/dry Progress/Results/Core Measures Suspected Sepsis SIRS Temperature: Pulse: 70 Respiratory Rate: 18 Laboratory Tests 09/29/22 13:30: White Blood Count 6.3 Blood Pressure 120 /80 Mean: 93 Laboratory Tests 09/29/22 13:30: Creatinine 0.73, INR Comment 1.0, Platelet Count 177, Total Bilirubin 0.4 Results/Orders Lab Results Laboratory Tests Test 09/29/22 13:30 Range/Units White Blood Count 6.3 4.3-11.0 10^3/uL Red Blood Count 4.33 3.80-5.11 10^6/uL Hemoglobin 13.2 11.5-16.0 g/dL Hematocrit 39 35-52 % Mean Corpuscular Volume 91 80-99 fL Mean Corpuscular Hemoglobin 31 25-34 pg Mean Corpuscular Hemoglobin Concent 34 32-36 g/dL Red Cell Distribution Width 11.7 10.0-14.5 % Platelet Count 177 130-400 10^3/uL Mean Platelet Volume 10.9 9.0-12.2 fL Immature Granulocyte % (Auto) 0 % Neutrophils (%) (Auto) 71 42-75 % Lymphocytes (%) (Auto) 19 12-44 % Monocytes (%) (Auto) 7 0-12 % Eosinophils (%) (Auto) 2 0-10 % Basophils (%) (Auto) 1 0-10 % Neutrophils # (Auto) 4.5 1.8-7.8 10^3/uL Lymphocytes # (Auto) 1.2 1.0-4.0 10^3/uL Monocytes # (Auto) 0.4 0.0-1.0 10^3/uL Eosinophils # (Auto) 0.1 0.0-0.3 10^3/uL Basophils # (Auto) 0.1 0.0-0.1 10^3/uL Immature Granulocyte # (Auto) 0.0 0.0-0.1 10^3/uL Prothrombin Time 13.3 12.2-14.7 SEC INR Comment 1.0 0.8-1.4 Activated Partial Thromboplast Time 33 24-35 SEC Sodium Level 140 135-145 MMOL/L Potassium Level 3.6 3.6-5.0 MMOL/L Chloride Level 106 98-107 MMOL/L Carbon Dioxide Level 20 L 21-32 MMOL/L Anion Gap 14 5-14 MMOL/L Blood Urea Nitrogen 4 L 7-18 MG/DL Creatinine 0.73 0.60-1.30 MG/DL Estimat Glomerular Filtration Rate 106 BUN/Creatinine Ratio 5 Glucose Level 68 L 70-105 MG/DL Calcium Level 9.1 8.5-10.1 MG/DL Corrected Calcium 8.8 8.5-10.1 MG/DL Magnesium Level 1.9 1.6-2.4 MG/DL Total Bilirubin 0.4 0.1-1.0 MG/DL Aspartate Amino Transf (AST/SGOT) 13 5-34 U/L Alanine Aminotransferase (ALT/SGPT) 8 0-55 U/L Alkaline Phosphatase 66 40-136 U/L Myoglobin 35.0 10.0-92.0 NG/ML Troponin I < 0.028 <0.028 NG/ML B-Type Natriuretic Peptide 47.7 <100.0 PG/ML Total Protein 7.5 6.4-8.2 GM/DL Albumin 4.4 3.2-4.5 GM/DL My Orders Orders - CHAI NAVA Cbc With Automated Diff (09/29/22 13:20) Magnesium (09/29/22 13:20) Ekg Tracing (09/29/22 13:20) Comprehensive Metabolic Panel (09/29/22 13:20) Myoglobin Serum (09/29/22 13:20) Protime With Inr (09/29/22 13:20) Partial Thromboplastin Time (09/29/22 13:20) Monitor-Rhythm Ecg Trace Only (09/29/22 13:20) Ed Iv/Invasive Line Start (09/29/22 13:20) Bnp Bill (09/29/22 13:20) Troponin I Bill (09/29/22 13:20) Ct Chest W (09/29/22 13:42) Iohexol Injection (Omnipaque 350 Mg/Ml 1 (09/29/22 14:00) Ns (Ivpb) (Sodium Chloride 0.9% Ivpb Bag (09/29/22 14:00) Medications Given in ED Current Medications Medications Dose Ordered Sig/Ronal Route Start Time Stop Time Status Last Admin Dose Admin Iohexol 100 ml ONCE ONCE IV 09/29/22 14:00 09/29/22 14:01 DC 09/29/22 13:57 49 ML Sodium Chloride 100 ml ONCE ONCE IV 09/29/22 14:00 09/29/22 14:01 DC 09/29/22 13:57 80 ML Vital Signs/I&O 09/29/22 12:45 Temp 36.6 Pulse 70 Resp 18 B/P (MAP) 120/80 (93) Pulse Ox 98 O2 Delivery Room Air Capillary Refill : Blood Pressure Mean: 93 ECG Comment Sinus rhythm, possible left atrial enlargement, 63 bpm, QRS duration 100 MS, QTc 408 MS. Departure Communication (PCP) Patient presents ED left-sided chest pain. Feels like she has mucus in her chest. Seems to be worse with movement or cough but she does get some improvement. History of pneumothorax with pleurodesis. Chest x-ray sure concerning for right upper lobe nodule. Scarring as a potential. EKG sinus rhythm without evidence of ST elevation, depression, A-fib or a flutter. Due to her pain and location cardiac work-up was ordered. No known history of coronary artery disease. Family history of coronary artery disease, history of smoking. Patient heart score is a 1. Lab work was essentially unremarkable. She reports a cough since August. History of smoking does do breathing treatments at home. Did offer nebulizer breathing treatment but she states the pain has improved significantly during her stay. History of similar pain in the past. No evidence of pneumonia. CT scan of the chest showed chronic findings without any acute abnormality. Discussed serial troponin however she was ready to be discharged. She states if any worsening symptoms that she will return back to the ED. Outpatient follow-up your primary care physician 2 to 3 days for reevaluation. She was not hypoxic or tachycardic suggesting PE. No recent travels or surgeries. Wells criteria low risk. Outpatient follow-up. Vital signs stable Impression Primary Impression: Cough Additional Impression: Chest pain Disposition: HOME, SELF-CARE Condition: Stable Departure-Patient Inst. Decision time for Depature: 14:22 Referrals: GENOVEVA MOHR MD (PCP/Family) Primary Care Physician Patient Instructions: Cough in Adults, Chest Pain, Adult ED Work/School Note: Work Release Form Date Seen in the Emergency Department: Sep 29, 2022 Return to Work: Oct 02, 2022 CHAI NAVA Sep 29, 2022 13:23
--- NOTE | 2022-09-29 13:38 | Diagnostic Imaging Report ---
EXAMINATION: Chest radiograph TECHNIQUE: AP and lateral views of the chest obtained. HISTORY: Respiratory distress COMPARISON: Chest radiograph 06/10/2022. CT of the chest 06/18/2022 FINDINGS: Biapical scarring and surgical changes in the bilateral upper lobe apices. Emphysematous changes. No focal consolidation. Cardiac silhouette and pulmonary vascularity are within normal limits. No pleural effusion or pneumothorax. Nodular opacity within the right upper lobe may represent residual scarring. Consider follow-up CT of the chest for further evaluation. IMPRESSION: Nodular opacity right upper lobe may represent scarring compared to prior CT, although not completely assessed with this exam. Consider CT of the chest for further evaluation. Biapical surgical changes and scarring as well as diffuse emphysematous changes. Dictated by: Dictated on workstation # [id number]
[2022-09-29 13:43] LABS: BASOPHILS # (AUTO) 0.1 10^3/uL (0.0-0.1); BASOPHILS % (AUTO) 1 % (0-10); EOSINOPHILS # (AUTO) 0.1 10^3/uL (0.0-0.3); EOSINOPHILS % (AUTO) 2 % (0-10); HEMATOCRIT 39 % (35-52); HEMOGLOBIN 13.2 g/dL (11.5-16.0); LYMPHOCYTES # (AUTO) 1.2 10^3/uL (1.0-4.0); LYMPHOCYTES % (AUTO) 19 % (12-44); MEAN CORPUSCULAR HEMOGLOBIN 31 pg (25-34); MEAN CORPUSCULAR HGB CONC 34 g/dL (32-36); MEAN CORPUSCULAR VOLUME 91 fL (80-99); MEAN PLATELET VOLUME 10.9 fL (9.0-12.2); MONOCYTES # (AUTO) 0.4 10^3/uL (0.0-1.0); MONOCYTES % (AUTO) 7 % (0-12); NEUTROPHILS # (AUTO) 4.5 10^3/uL (1.8-7.8); NEUTROPHILS % (AUTO) 71 % (42-75); PLATELET COUNT 177 10^3/uL (130-400); WHITE BLOOD COUNT 6.3 10^3/uL (4.3-11.0)
[2022-09-29 13:50] LABS: ALBUMIN 4.4 GM/DL (3.2-4.5)
[2022-09-29 13:51] LABS: POTASSIUM 3.6 MMOL/L (3.6-5.0)
[2022-09-29 13:52] LABS: CALCIUM 9.1 MG/DL (8.5-10.1)
[2022-09-29 13:53] LABS: PROTHROMBIN TIME PATIENT 13.3 SEC (12.2-14.7); TOTAL PROTEIN 7.5 GM/DL (6.4-8.2)
[2022-09-29 13:55] LABS: BILIRUBIN,TOTAL 0.4 MG/DL (0.1-1.0)
[2022-09-29 13:57] LABS: CREATININE SERUM 0.73 MG/DL (0.60-1.30)
[2022-09-29 14:00] LABS: MAGNESIUM 1.9 MG/DL (1.6-2.4)
[2022-09-29] MEDS ORDERED: NS 100 ML (IVPB) BAG IV ONE (14:00)
[2022-09-29] MEDS ORDERED: IOHEXOL 350 MG/ML 100 ML (OMNIPAQUE 350) VIAL IV ONE (14:00)
--- NOTE | 2022-09-29 14:13 | Diagnostic Imaging Report ---
EXAMINATION: CT chest with intravenous contrast. TECHNIQUE: Multiple contiguous axial images were obtained through the chest after the uneventful administration of intravenous contrast. All CT scans use one or more of the following dose optimizing techniques: automated exposure control, MA and/or KvP adjustment based on patient size and exam type or iterative reconstruction. HISTORY: Right-sided chest pain. COMPARISON: None available. FINDINGS: The heart size is within normal limits. No pericardial effusion is present. There is no mediastinal, hilar, or axillary lymphadenopathy. Advanced emphysema is seen throughout the lungs, greatest in the apices. Biapical scarring is noted. No focal mass. There are no focal areas of consolidation. No central endobronchial obstructing lesions are identified. There is no pleural effusion or pneumothorax. Partially calcified pleural plaques are noted similar to the prior exam. The osseous structures demonstrate no acute abnormalities. Limited views of the upper abdominal structures demonstrate no acute abnormalities. Both adrenal glands are unremarkable. IMPRESSION: 1. Stable appearance of the chest with advanced emphysema and biapical scarring. No focal consolidations. No pneumothorax. 2. Stable appearance of partially calcified pleural plaques. Findings can be seen with prior pleurodesis or prior asbestos exposure. Dictated by: Dictated on workstation # [id number]
[2022-09-29 14:31] VITALS: BP 120/80
== END 2022-09-29 14:32 | disposition home or self-care (01) ==
LOC: EDUNIT# 12:41 → ER 12:42
DX: R07.89 Other chest pain (principal); R05.3 Chronic cough; F17.210 Nicotine dependence, cigarettes, uncomplicated; Z98.890 Other specified postprocedural states; Z82.49 Family history of ischemic heart disease and other diseases of the circulatory system; Z28.310 Unvaccinated for COVID-19
CPT/HCPCS: 36415; 71046; 71260; 80053; 83735; 83874; 83880; 84484; 85025; 85610; 85730; 93005

== ENCOUNTER 2022-10-15 08:57 | Emergency (ER) | payer OTHER ==
[~2022-10-15] VITALS: Ht 170 cm; Wt 40.3 kg
[2022-10-15 09:06] VITALS: BP 152/89
--- NOTE | 2022-10-15 09:18 | ED EENT ---
History of Present Illness General Chief Complaint: Dental Problems/Pain Stated Complaint: TOOTH PAIN/INFECTION Nursing Triage Note: PT AMBULATORY TO ER WITH VISITOR. PT REPORTS R SIDED DENTAL PAIN, UPPER, AND R SIDED FACIAL SWELLING. REPORTS STARTED APPROX 1 WEEK AGO, STARTED TAKING SOME OLD CLINDAMYCIN THAT SHE HAD AT HOME. STATES INITIALLY GOT BETTER BUT REPORTS PAIN AND SWELLING WORSENED TODAY. History of Present Illness Date Seen by Provider: Oct 15, 2022 Time Seen by Provider: 09:09 Initial Comments Patient is a 42-year-old female who presents to the emergency room with a chief complaint of right upper gum pain and swelling. Patient states that she has been fighting a "tooth infection" for the last week. She had some leftover clindamycin that she started taking a few days ago. She states she has been doing salt water rinses. She is a heavy smoker. Has baseline severe widespread dental decay. Denies fevers or chills. Intermittent nausea. No URI symptoms. Is not COVID vaccinated. All other review of systems reviewed and negative except as stated. Timing/Duration: gradual Severity: severe Location: dental Prearrival Treatment: over the counter meds, prescription meds (Old clindamycin prescription) Associated Symptoms: tooth pain, other (Nausea) Allergies and Home Medications Allergies Coded Allergies: amoxicillin (Verified Allergy, Severe, Anaphylaxis, 06/20/22) cephalexin (Verified Allergy, Severe, ANAPHYLAXIS, 06/20/22) Anaphylaxis ibuprofen (Verified Allergy, Mild, RASH FROM LIQUIGELS CAN TAKE PLAIN ADVIL, 12/28/08) pregabalin (Unverified Allergy, Unknown, 09/21/17) tramadol (Unverified Allergy, Unknown, 09/21/17) Patient Home Medication List Home Medication List Reviewed: Yes Buprenorphine HCl/Naloxone HCl (Suboxone 8 mg-2 mg Sl Film) 8 Mg-2 Mg Film, 2 EACH SL DAILY, (Reported) Entered as Reported by: NERISSA WANG on 06/19/22 1052 Chlorhexidine Gluconate (Chlorhexidine Gluconate) 0.12 % Mouthwash, 15 ML MM BID Prescribed by: JACQUES HSIEH on 10/15/22 1003 Clindamycin HCl (Cleocin HCl) 150 Mg Capsule, 300 MG PO Q6H Prescribed by: JACQUES HSIEH on 10/15/22 0929 Estradiol (Estrace Tablet) 1 Mg Tablet, 1 MG PO DAILY, (Reported) Entered as Reported by: NERISSA WANG on 06/19/22 1054 Hydrocodone/Acetaminophen (Hydrocodone-Acetamin 5-325 mg) 5 Mg-325 Mg Tablet, 1 TAB PO Q6H PRN for PAIN-MODERATE (5-7) Prescribed by: JACQUES HSIEH on 10/15/22 0930 Ibuprofen (Ibuprofen) 200 Mg Tablet, 400 MG PO Q6H PRN for PAIN-MILD (1-4), (Reported) Entered as Reported by: NERISSA WANG on 06/19/22 1052 Levofloxacin (Levofloxacin) 500 Mg Tablet, 500 MG PO DAILY@1100 Prescribed by: ESTHER SIMMS on 06/20/22 1342 Ondansetron (Ondansetron Odt) 4 Mg Tab.rapdis, 4 MG SL Q8H PRN for NAUSEA/VOM ITING Prescribed by: JACQUES HSIEH on 10/15/22 0929 Review of Systems Review of Systems Constitutional: see HPI Mouth: pain (Pain and swelling right maxilla), swelling, other (Dental pain) Throat: no symptoms reported Respiratory: no symptoms reported Cardiovascular: no symptoms reported Gastrointestinal: nausea Past Wjjntef-Xjhgtx-Apxugm Hx Patient Social History Pt feels they are or have been: No Immunizations Up To Date Tetanus Booster (TDap): Unknown First/Initial COVID19 Vaccinat: DENIES Seasonal Allergies Seasonal Allergies: No Past Medical History Surgery/Hospitalization HX: PMH;LUNG COLLAPSE, ASTHMA, EMPH. SURGERY;APPENDECTOMY, FULL HYST. 2005, THORACOTOMY, BILATERAL LUNG SURGERY. 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 Genitourinary: No Gastrointestinal: No Musculoskeletal: No Endocrine: No HEENT: Yes (POOR DENTITION) Loss of Vision: Denies Hearing Impairment: Denies Cancer: No Psychosocial: Yes Sleep Difficulties Integumentary: No Blood Disorders: No Family Medical History No Pertinent Family Hx PAST SURGICAL HISTORY: -MULTIPLE BILATERAL CHEST TUBES AND BILATERAL PLEURODESIS FOR MULIPTLE EPISODES OF SPONTANEOUS PNEUMOTHORAX--> 10 TIMES, PER PT -HYSTERECTOMY 12/2008 -APPENDECTOMY 1996 Physical Exam Vital Signs Vital Signs - First Documented 10/15/22 09:06 Temp 36.8 Pulse 85 Resp 18 B/P (MAP) 152/89 (110) Pulse Ox 96 O2 Delivery Room Air Height, Weight, BMI Height: 5'8.00" Weight: 112lbs. 0oz. [id number]; 13.00 BMI Method:Estimated General Appearance: WD/WN, thin, other (Appears chronically ill) Eyes: bilateral eye normal inspection, bilateral eye PERRL, bilateral eye EOMI Nose: normal inspection Mouth/Throat: maxillary swelling; No pharynx swelling, No pharynx tenderness, No tongue swollen, No tonsillar swelling; other (Widespread severe dental decay, multiple necrotic teeth to the gumline. Patient has evidence of a right upper abscess above where tooth #4 and 5 should be. Fluctuant, no active drainage significant erythema exquisitely tender to palpation) Neck: non-tender, full range of motion, supple, normal inspection Respiratory: no respiratory distress, no accessory muscle use Procedures/Interventions I&D : Site: right gingiva above tooth 4/5 Blade Size: 11 Progress Patient anesthetized with Hurricane spray and 2ml of a 1% plain lidocaine and 0.5% bupivicaine mix. 11blade used to incise the area with Copious amounts of pus expressed. Patient feeling much better after drainage Progress/Results/Core Measures Results/Orders My Orders Orders - JACQUES HSIEH MD Lidocaine 1% Inj 20 Ml (Xylocaine 1% Inj (10/15/22 09:30) Bupivacaine 0.5% Injection (Sensorcaine (10/15/22 09:30) Ondansetron Oral Dissolve Tab (Zofran (10/15/22 09:30) Lidocaine 1% Inj 10 Ml (Xylocaine 1% Inj (10/15/22 09:22) Medications Given in ED Current Medications Medications Dose Ordered Sig/Ronal Route Start Time Stop Time Status Last Admin Dose Admin Bupivacaine HCl 30 ml ONCE ONCE INJ 10/15/22 09:30 10/15/22 09:31 DC 10/15/22 09:29 30 ML Lidocaine HCl 10 ml STK-MED ONCE .ROUTE 10/15/22 09:22 10/15/22 09:24 DC 10/15/22 09:29 10 ML Ondansetron HCl 4 mg ONCE ONCE PO 3/13/23 09:30 10/15/22 09:31 DC 10/15/22 09:23 4 MG Vital Signs/I&O 10/15/22 09:06 Temp 36.8 Pulse 85 Resp 18 B/P (MAP) 152/89 (110) Pulse Ox 96 O2 Delivery Room Air Blood Pressure Mean: 110 Departure Impression Primary Impression: Gingival abscess Disposition: HOME, SELF-CARE Condition: Stable Departure-Patient Inst. Decision time for Depature: 09:25 Referrals: GENOVEVA MOHR MD (PCP/Family) Primary Care Physician Patient Instructions: Tooth Abscess (DC) Add. Discharge Instructions: Take the antibiotics as prescribed. Please finish the entire course. Nausea medication Zofran, 4 mg every 8 hours as needed for nausea. Continue to do salt water rinses 2-3 times a day. Pain medication, hydrocodone 1 tablet every 6 hours as needed for severe pain. Otherwise take 2 ibuprofen every 6 hours with food for pain. The abscess should continue to drain for the next 24 hours and slowly get better over the next couple of days. If you have worsening pain, swelling, redness to the face, fever please come back to the emergency room for reevaluation. Scripts Chlorhexidine Gluconate (Chlorhexidine Gluconate) 0.12 % Mouthwash 15 ML MM BID for 30 Days, #460 ML swish and spit twice a day. hold in the mouth 30 seconds Prov: JACQUES HSIEH MD 10/15/22 Clindamycin HCl (Cleocin HCl) 150 Mg Capsule 300 MG PO Q6H for 10 Days, #80 CAP Prov: JACQUES HSIEH MD 10/15/22 Hydrocodone/Acetaminophen (Hydrocodone-Acetamin 5-325 mg) 5 Mg-325 Mg Tablet 1 TAB PO Q6H PRN for PAIN-MODERATE (5-7), #10 TAB Prov: JACQUES HSIEH MD 10/15/22 Ondansetron (Ondansetron Odt) 4 Mg Tab.rapdis 4 MG SL Q8H PRN for NAUSEA/VOMITING, #10 TAB Prov: JACQUES HSIEH MD 10/15/22 Work/School Note: Work Release Form Date Seen in the Emergency Department: Oct 15, 2022 Return to Work: Oct 16, 2022 Images Mouth/Nose 1 - Swelling, Tenderness JACQUES HSIEH MD Oct 15, 2022 09:18
[2022-10-15] MEDS ORDERED: LIDOCAINE 1% INJ 10 ML VIAL ONE (09:22)
[2022-10-15] MEDS ORDERED: CLIN150C2 PO (09:29)
[2022-10-15] MEDS ORDERED: ONDA4TAB11 SL (09:29)
[2022-10-15] MEDS ORDERED: ACHD5005 PO (09:29)
[2022-10-15] MEDS ORDERED: ONDANSETRON 4 MG (ZOFRAN) ORAL DISSOLVE TAB PO ONE (09:30)
[2022-10-15] MEDS ORDERED: BUPIVACAINE 0.5% 30 ML (SENSORCAINE) VIAL INJ ONE (09:30)
[2022-10-15] MEDS ORDERED: LIDOCAINE 1% INJ 20 ML VIAL INJ ONE (09:30)
[2022-10-15] MEDS ORDERED: NFCHLORHGL MM (10:03)
== END 2022-10-15 10:04 | disposition home or self-care (01) ==
LOC: EDUNIT# 08:57 → ER 08:59
DX: K05.20 Aggressive periodontitis, unspecified (principal); F17.200 Nicotine dependence, unspecified, uncomplicated; Z28.310 Unvaccinated for COVID-19; Z88.0 Allergy status to penicillin; Z88.1 Allergy status to other antibiotic agents; Z88.6 Allergy status to analgesic agent; Z88.5 Allergy status to narcotic agent
CPT/HCPCS: 99283

== ENCOUNTER 2022-11-30 07:57 | Emergency (ER) | payer OTHER ==
[~2022-11-30] VITALS: Ht 170.2 cm; Wt 41.7 kg
[~2022-11-30 07:57] MED LIST changes: +CLIN150C2 PO; +NFCHLORHGL MM; +ONDA4TAB11 SL
--- NOTE | 2022-11-30 08:15 | ED Dyspnea ---
General Stated Complaint: LUNG PAIN | RT BACK PAIN Source of Information: Patient Exam Limitations: No Limitations History of Present Illness Date Seen by Provider: Nov 30, 2022 Time Seen by Provider: 08:09 Initial Comments Patient is a 42-year-old female with a history of spontaneous pneumothorax who presents to the emergency room with a chief complaint of right-sided back pain and "lung pain". She feels a little short of breath. She was working this morning when she had sudden onset of symptoms that were reminiscent of prior pneumothorax. She states the discomfort is coming in waves. She thinks it isamar ht be pleurisy. She is tapering off Suboxone in the last week. Had a lower dose yesterday. She states the store was very cold an that may have exacerbated her symptoms. No recent illnesses, fevers, chills, congestion. She continues to smoke but is trying to quit. No other complaints of illness. 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) Prior Episodes/Possible Cause: Frequent Episodes Associated Symptoms: Anxiety, Chest Pain Allergies and Home Medications Allergies Coded Allergies: amoxicillin (Verified Allergy, Severe, Anaphylaxis, 06/20/22) cephalexin (Verified Allergy, Severe, ANAPHYLAXIS, 06/20/22) Anaphylaxis ibuprofen (Verified Allergy, Mild, RASH FROM LIQUIGELS CAN TAKE PLAIN ADVIL, 12/28/08) pregabalin (Unverified Allergy, Unknown, 09/21/17) tramadol (Unverified Allergy, Unknown, 09/21/17) Patient Home Medication List Home Medication List Reviewed: Yes Buprenorphine HCl/Naloxone HCl (Suboxone 8 mg-2 mg Sl Film) 8 Mg-2 Mg Film, 2 EACH SL DAILY, (Reported) Entered as Reported by: NERISSA WANG on 06/19/22 1052 Chlorhexidine Gluconate (Chlorhexidine Gluconate) 0.12 % Mouthwash, 15 ML MM BID Prescribed by: JACQUES HSIEH on 10/15/22 1003 Clindamycin HCl (Cleocin HCl) 150 Mg Capsule, 300 MG PO Q6H Prescribed by: JACQUES HSIEH on 10/15/22 0929 Estradiol (Estrace Tablet) 1 Mg Tablet, 1 MG PO DAILY, (Reported) Entered as Reported by: NERISSA WANG on 06/19/22 1054 Hydrocodone/Acetaminophen (Hydrocodone-Acetamin 5-325 mg) 5 Mg-325 Mg Tablet, 1 TAB PO Q6H PRN for PAIN-MODERATE (5-7) Prescribed by: JACQUES HSIEH on 10/15/22 0930 Ibuprofen (Ibuprofen) 200 Mg Tablet, 400 MG PO Q6H PRN for PAIN-MILD (1-4), (Reported) Entered as Reported by: NERISSA WANG on 06/19/22 1052 Levofloxacin (Levofloxacin) 500 Mg Tablet, 500 MG PO DAILY@1100 Prescribed by: ESTHER SIMMS on 06/20/22 1342 Ondansetron (Ondansetron Odt) 4 Mg Tab.rapdis, 4 MG SL Q8H PRN for NAUSEA/VOMITING Prescribed by: JACQUES HSIEH on 10/15/22 0929 Review of Systems Review of Systems Constitutional: see HPI Respiratory: other (painful breathing) Cardiovascular: chest pain Gastrointestinal: no symptoms reported Genitourinary: no symptoms reported Musculoskeletal: back pain Skin: no symptoms reported Past Ofxqlql-Qptnhl-Fghnsw Hx Immunizations Up To Date Tetanus Booster (TDap): Unknown First/Initial COVID19 Vaccinat: DENIES Seasonal Allergies Seasonal Allergies: No Past Medical History Surgery/Hospitalization HX: PMH;LUNG COLLAPSE, ASTHMA, EMPH. SURGERY;APPENDECTOMY, FULL HYST. 2005, THORACOTOMY, BILATERAL LUNG SURGERY. 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 Genitourinary: No Gastrointestinal: No Musculoskeletal: No Endocrine: No HEENT: Yes (POOR DENTITION) Loss of Vision: Denies Hearing Impairment: Denies Cancer: No Psychosocial: Yes Sleep Difficulties Integumentary: No Blood Disorders: No Family Medical History No Pertinent Family Hx PAST SURGICAL HISTORY: -MULTIPLE BILATERAL CHEST TUBES AND BILATERAL PLEURODESIS FOR MULIPTLE EPISODES OF SPONTANEOUS PNEUMOTHORAX--> 10 TIMES, PER PT -HYSTERECTOMY 12/2008 -APPENDECTOMY 1996 Physical Exam Vital Signs Vital Signs - First Documented 11/30/22 08:05 Temp 36.2 Pulse 71 Resp 18 B/P (MAP) 120/85 (97) Pulse Ox 97 O2 Delivery Room Air Capillary Refill : Height, Weight, BMI Height: 5'8.00" Weight: 112lbs. 0oz. 50.191074dt; 13.00 BMI Method:Estimated General Appearance: No Apparent Distress, Thin HEENT: PERRL/EOMI Neck: Normal Inspection Respiratory: Chest Non Tender, Lungs Clear, Normal Breath Sounds, No Accessory Muscle Use, No Respiratory Distress Cardiovascular: Regular Rate, Rhythm, Normal Peripheral Pulses Extremity: Normal Inspection, Normal Range of Motion Neurologic/Psychiatric: Alert, Oriented x3, No Motor/Sensory Deficits, Normal Mood/Affect Skin: Normal Color, Warm/Dry Progress/Results/Core Measures Results/Orders My Orders Orders - JACQUES HSIEH MD Chest Pa/Lat (2 View) (11/30/22 08:15) Ketorolac Injection (Toradol Injection) (11/30/22 09:45) Vital Signs/I&O 11/30/22 11/30/22 08:05 09:51 Temp 36.2 36.2 Pulse 71 71 Resp 18 18 B/P (MAP) 120/85 (97) 120/85 Pulse Ox 97 97 O2 Delivery Room Air Room Air Diagnostic Imaging Diagonstic Imaging: Xray Plain Films/CT/US/NM/MRI: chest Comments [facility], [place] NAME: SHILOH DOUGLAS [facility] REC#: [id number] PT STATUS: DEP ER : 1980 PHYSICIAN: JACQUES HSIEH MD ADMIT DATE: 11/30/22/ER Signed Date of Exam:11/30/22 CHEST PA/LAT (2 VIEW) EXAMINATION: CHEST (PA AND LATERAL). CLINICAL INDICATION: 42-year-old female, shortness of breath. COMPARISON: September 29, 2022. FINDINGS: The heart size and mediastinal contours are unchanged. The lungs are hyperexpanded. There are sutures projecting in the upper lobes bilaterally. There are redemonstrated chronic lung changes. There is no identified new area of focal airspace consolidation. IMPRESSION: Redemonstrated findings of chronic lung disease without identified interval acute cardiopulmonary abnormality. Dictated by: Dictated on workstation # [id number] Dict: 11/30/22 0901 Trans: 11/30/22 [facility] [id number] Interpreted by: LOBO KILLIAN MD Electronically signed by: LOBO KILLIAN MD 11/30/22 1023 Departure Impression Primary Impression: Pleuritic chest pain Disposition: HOME, SELF-CARE Condition: Stable Departure-Patient Inst. Decision time for Depature: 09:36 Referrals: GENOVEVA MOHR MD (PCP/Family) Primary Care Physician Patient Instructions: Pleuritic Chest Pain (DC) Add. Discharge Instructions: You can take slsa-lab-bjpvymm ibuprofen 2 tablets every 6 hours with food as needed for pain. Please try and quit smoking. Continue your daily medications as prescribed by your primary care doctor. If you experience any worsening pain especially with shortness of breath, bloody sputum when you cough or any other emergent, concerning symptoms, please return to the emergency department for reevaluation Follow-up with your primary care provider as scheduled. Work/School Note: Work Release Form Date Seen in the Emergency Department: Nov 30, 2022 Return to Work: Dec 02, 2022 Copy Copies To 1: GENOVEVA MOHR MD, KATHRYN M MD Nov 30, 2022 08:15
--- NOTE | 2022-11-30 09:05 | Diagnostic Imaging Report ---
EXAMINATION: CHEST (PA AND LATERAL). CLINICAL INDICATION: 42-year-old female, shortness of breath. COMPARISON: September 29, 2022. FINDINGS: The heart size and mediastinal contours are unchanged. The lungs are hyperexpanded. There are sutures projecting in the upper lobes bilaterally. There are redemonstrated chronic lung changes. There is no identified new area of focal airspace consolidation. IMPRESSION: Redemonstrated findings of chronic lung disease without identified interval acute cardiopulmonary abnormality. Dictated by: Dictated on workstation # [id number]
[2022-11-30] MEDS ORDERED: KETOROLAC 15 MG/ML VIAL IVP ONE (09:45)
[2022-11-30 09:51] VITALS: BP 120/85
== END 2022-11-30 09:51 | disposition home or self-care (01) ==
LOC: EDUNIT# 07:57 → ER 07:59
DX: R07.81 Pleurodynia (principal); Z28.310 Unvaccinated for COVID-19; Z88.6 Allergy status to analgesic agent
CPT/HCPCS: 71046

== ENCOUNTER 2022-12-29 13:11 | Emergency (ER) | payer OTHER ==
[~2022-12-29] VITALS: Ht 170.2 cm; Wt 42.2 kg
[~2022-12-29 13:11] MED LIST changes: -D-ME473S11 PO; +PROM473S15 PO
[2022-12-29] MEDS ORDERED: ORPHENADRINE 60 MG/2 ML (NORFLEX) AMP (ED ONLY) IM ONE (13:45)
[2022-12-29] MEDS ORDERED: KETOROLAC 15 MG/ML VIAL IM ONE (13:45)
--- NOTE | 2022-12-29 13:45 | ED General ---
General Chief Complaint: Rib Pain Stated Complaint: LEFT RIB/CHEST PAIN Nursing Triage Note: PT AMBULATE TO ROOM 04 WITHOUT DIFFICULTY WITH C/O LEFT SIDE RIB PAIN X2 WEEKS. PT REPORTS A DOG JUMPING ON HER X2 WEEKS AGO. PT REPORTS TAKING IBUPROFEN FOR PAIN. PT REPORTS SHE HAS NOT SEEN HER PCP OR THE CLINIC FOR THIS C/O BECAUSE SHE HAS BEEN TOO BUSY AT WORK FOR THE PREVIOUS X2 WEEKS. Source of Information: Patient Exam Limitations: No Limitations History of Present Illness Date Seen by Provider: December 29, 2022 Time Seen by Provider: 13:24 Initial Comments 42-year-old female presents to the ER with complaints of left-sided rib pain starting 2 weeks ago. She states she was sleeping on the couch with her arm above her head when an 80 pound dog jumped on her chest waiting on the left side. She states the pain is not constant, it is worse in the morning, and worse with movement. She works at [employer] and moves her arms a lot at work. She states pain is sometimes worse with a deep cough, but usually she can cough without pain. She reports sniffling causes the pain to be worse. Denies increased pain with taking deep breath. She denies shortness of air, abdominal pain, nausea, vomiting, diarrhea. She has a history of spontaneous pneumothoraxes. Allergies and Home Medications Allergies Coded Allergies: amoxicillin (Verified Allergy, Severe, Anaphylaxis, 06/20/22) cephalexin (Verified Allergy, Severe, ANAPHYLAXIS, 06/20/22) Anaphylaxis ibuprofen (Verified Allergy, Mild, RASH FROM LIQUIGELS CAN TAKE PLAIN ADVIL, 12/28/08) pregabalin (Unverified Allergy, Unknown, 09/21/17) tramadol (Unverified Allergy, Unknown, 09/21/17) Patient Home Medication List Home Medication List Reviewed: Yes Buprenorphine HCl/Naloxone HCl (Suboxone 8 mg-2 mg Sl Film) 8 Mg-2 Mg Film, 2 EACH SL DAILY, (Reported) Entered as Reported by: NERISSA WANG on 06/19/22 1052 Chlorhexidine Gluconate (Chlorhexidine Gluconate) 0.12 % Mouthwash, 15 ML MM BID Prescribed by: JACQUES HSIEH on 10/15/22 1003 Clindamycin HCl (Cleocin HCl) 150 Mg Capsule, 300 MG PO Q6H Prescribed by: JACQUES HSIEH on 10/15/22 0929 Estradiol (Estrace Tablet) 1 Mg Tablet, 1 MG PO DAILY, (Reported) Entered as Reported by: NERISSA WANG on 06/19/22 1054 Hydrocodone/Acetaminophen (Hydrocodone-Acetamin 5-325 mg) 5 Mg-325 Mg Tablet, 1 TAB PO Q6H PRN for PAIN-MODERATE (5-7) Prescribed by: JACQUES HSIEH on 10/15/22 0930 Ibuprofen (Ibuprofen) 200 Mg Tablet, 400 MG PO Q6H PRN for PAIN-MILD (1-4), (Reported) Entered as Reported by: NERISSA WANG on 06/19/22 1052 Levofloxacin (Levofloxacin) 500 Mg Tablet, 500 MG PO DAILY@1100 Prescribed by: ESTHER SIMMS on 06/20/22 1342 Ondansetron (Ondansetron Odt) 4 Mg Tab.rapdis, 4 MG SL Q8H PRN for NAUSEA/VOMITING Prescribed by: JACQUES HSIEH on 10/15/22 09 Review of Systems Review of Systems Constitutional: see HPI Past Idqdnni-Hpgzsq-Nyfgzt Hx Patient Social History Tobacco Use?: Yes Tobacco type used: Cigarettes Smokeless Tobacco Frequency: Never a User Use of E-Cig and/or Vaping dev: No Use of E-Cig and/or Vaping Awais: Never a User Substance use?: No Alcohol Use?: No Pt feels they are or have been: No Immunizations Up To Date Tetanus Booster (TDap): Unknown First/Initial COVID19 Vaccinat: DENIES Second COVID19 Vaccination Zac: DENIES Third COVID19 Vaccination Date: DENIES Seasonal Allergies Seasonal Allergies: No Past Medical History Surgery/Hospitalization HX: PMH;LUNG COLLAPSE, ASTHMA, EMPH. SURGERY;APPENDECTOMY, FULL HYST. 2005, THORACOTOMY, BILATERAL LUNG SURGERY. 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 Genitourinary: No Gastrointestinal: No Musculoskeletal: No Endocrine: No HEENT: Yes (POOR DENTITION) Loss of Vision: Denies Hearing Impairment: Denies Cancer: No Psychosocial: Yes Sleep Difficulties Integumentary: No Blood Disorders: No Family Medical History No Pertinent Family Hx PAST SURGICAL HISTORY: -MULTIPLE BILATERAL CHEST TUBES AND BILATERAL PLEURODESIS FOR MULIPTLE EPISODES OF SPONTANEOUS PNEUMOTHORAX--> 10 TIMES, PER PT -HYSTERECTOMY 12/2008 -APPENDECTOMY 1996 Physical Exam Vital Signs Vital Signs - First Documented 12/29/22 13:19 Temp 36.7 Pulse 70 Resp 15 B/P (MAP) 112/81 (91) O2 Delivery Room Air Capillary Refill : Less Than 3 Seconds Height, Weight, BMI Height: 5'8.00" Weight: 112lbs. 0oz. 50.543377jp; 14.00 BMI Method:Estimated General Appearance: No Apparent Distress, WD/WN Neck: Non Tender, Supple Respiratory: Lungs Clear, Normal Breath Sounds, No Accessory Muscle Use, No Respiratory Distress, Other (Left-sided lower rib tenderness to palpation in multiple areas) Cardiovascular: Regular Rate, Rhythm Back: Other (Tenderness to left lateral mid back over ribs) Extremity: Normal Capillary Refill, Normal Range of Motion Neurologic/Psychiatric: Alert, Normal Mood/Affect Skin: Normal Color, Warm/Dry Progress/Results/Core Measures Suspected Sepsis SIRS Temperature: Pulse: 70 Respiratory Rate: 15 Blood Pressure 112 /81 Mean: 91 Results/Orders My Orders Orders - ADAL SAM APRN Ribs/Unilateral With Chest (12/29/22 13:34) Ketorolac Injection (Toradol Injection) (12/29/22 13:45) Orphenadrine Inj (Ed Only) (Norflex Inje (12/29/22 13:45) Medications Given in ED Current Medications Medications Dose Ordered Sig/Ronal Route Start Time Stop Time Status Last Admin Dose Admin Ketorolac Tromethamine 15 mg ONCE ONCE IM 12/29/22 13:45 12/29/22 13:46 DC 12/29/22 13:50 15 MG Orphenadrine Citrate 60 mg ONCE ONCE IM 12/29/22 13:45 12/29/22 13:46 DC 12/29/22 13:51 60 MG Vital Signs/I&O 12/29/22 13:19 Temp 36.7 Pulse 70 Resp 15 B/P (MAP) 112/81 (91) O2 Delivery Room Air Capillary Refill : Less Than 3 Seconds Blood Pressure Mean: 91 Progress Note : Progress Note Patient seen and evaluated, resting in bed, no acute distress. Based on exam and symptoms, x-ray of chest and left ribs ordered. Toradol and Norflex ordered. Departure Impression Primary Impression: Rib contusion Disposition: 01 HOME, SELF-CARE Condition: Stable Departure-Patient Inst. Decision time for Depature: 14:40 Referrals: GENOVEVA MOHR MD (PCP/Family) Primary Care Physician Patient Instructions: Rib Fracture or Bruised Rib ED Add. Discharge Instructions: You may take 800 mg ibuprofen every 8 hours with food as needed for pain. You may take Flexeril up to 3 times a day as needed for muscle spasms, it may make you sleepy. Return for severe pain, shortness of air, abdominal pain, or any other new, concerning, or worsening symptoms. All discharge instructions reviewed with patient and/or family. Voiced under standing. Scripts Cyclobenzaprine HCl (Cyclobenzaprine HCl) 5 Mg Tablet 5 MG PO TID, #21 TAB 0 Refills Prov: ADAL SAM APRN 12/29/22 ADAL SAM APRN December 29, 2022 13:45
--- NOTE | 2022-12-29 13:58 | Diagnostic Imaging Report ---
Indication: Left-sided rib pain for 2 weeks. Time of Exam: 1:43 PM Correlation is made with prior chest from 11/30/2022. Heart size stable. Chronic parenchymal changes in the upper lung english bilaterally appears stable. Multiple views left ribs were also obtained. No definite displaced rib fracture is seen. Impression: No displaced rib fractures identified. Dictated by: Dictated on workstation # [id number]
[2022-12-29] MEDS ORDERED: CYCL5TAB PO (14:42)
[2022-12-29 14:45] VITALS: BP 117/65
== END 2022-12-29 14:45 | disposition home or self-care (01) ==
LOC: EDUNIT# 13:11 → ER 13:14
DX: S20.212A Contusion of left front wall of thorax, initial encounter (principal); F17.210 Nicotine dependence, cigarettes, uncomplicated; Z28.310 Unvaccinated for COVID-19; Z88.6 Allergy status to analgesic agent; W54.1XXA Struck by dog, initial encounter
CPT/HCPCS: 71101